=== PATIENT | female | born 1945 | race Caucasian/White ===

== ENCOUNTER 2017-12-13 11:01 | Inpatient (IN) | payer MEDICARE, OTHER ==
[~2017-12-13] VITALS: Ht 160 cm; Wt 97.3 kg
[~2017-12-13 11:01] MED LIST: ASPIRIN EC325 M1 PO; BENADRYL25 MG PO; ENALAPRIL MALEAT5 M1 PO; EPIPEN0.3 MG/0.3 IM; GLUCOPHAGE500 MG PO; LEVOTHYROXINE150 MCG PO; LIPITOR40 MG PO; LISINOPRIL2.5 MG PO; PERCOCET 5-3251 EACH PO; PLAVIX 75 MG TA75 MG PO; ULTRAM 50MG TAB50 MG PO
[2017-12-13 11:02] VITALS: BP 110/58
[2017-12-13 11:17] LABS: ABSOLUTE BASOPHILS 0.1 thou/uL (0.0-0.2); ABSOLUTE EOSINOPHILS 0.1 thou/uL (0.0-0.7); ABSOLUTE LYMPHOCYTES 1.8 thou/uL (0.8-5.3); ABSOLUTE MONOCYTES 0.7 thou/uL (0.0-1.2); ABSOLUTE NEUTROPHILS 7.8 thou/uL (1.6-8.1); BASOPHILS 0.7 %; HEMATOCRIT 38.8 % (37.0-47.0); HEMOGLOBIN 12.5 gm/dL (12.0-15.0); LYMPHOCYTES 16.8 %; MCH 26.2 pg (26.0-34.0); MCHC 32.3 g/dL (28.0-37.0); MCV 81.2 fL (80.0-100.0); MPV 8.2 fl. (7.2-11.1); NUCLEATED RBCS 0 /100WBC; PLATELET COUNT* 349 thou/uL (150-400); POLYS 74.5 %; RBC 4.78 mil/uL (4.20-5.00); WBC 10.5 thou/uL (4.0-11.0)
[2017-12-13 11:27] LABS: CALCIUM 9.2 mg/dL (8.5-10.1); CREATININE 0.8 mg/dL (0.6-1.3); POTASSIUM 3.8 mmol/L (3.5-5.1)
[2017-12-13 11:39] LABS: ALBUMIN 3.4 g/dL (3.4-5.0); MAGNESIUM 1.7 mg/dL (1.8-2.4); TOTAL BILIRUBIN 0.3 mg/dL (<0.1-1.0); TOTAL PROTEIN 7.4 g/dL (6.4-8.2); TROPONIN-I LEVEL 0.28 ng/mL (<0.06)
[2017-12-13 14:03] VITALS: BP 99/74
--- NOTE | 2017-12-13 14:20 | NUR ---
ADMIT FROM ER TO RM 212 REPORT GIVEN PATIENT TO VIA CART AND ASSISTED TO BED ORIENTED TO RM AND CALL LIGHT
[2017-12-13 14:25] VITALS: BP 89/67
[2017-12-13] MEDS ORDERED: ASPIR 8181 M1 PO (14:35)
[2017-12-13] MEDS ORDERED: VENTOLIN HFA 1818 GM INH (14:41)
[2017-12-13] MEDS ORDERED: ELIQUIS5 MG PO (14:42)
[2017-12-13] MEDS ORDERED: CARDURA4 MG PO (14:43)
[2017-12-13] MEDS ORDERED: COZAAR 50 MG TA50 M1 PO (14:45)
[2017-12-13] MEDS ORDERED: MOBIC7.5 MG PO (14:45)
[2017-12-13] MEDS ORDERED: HYDROCHLOROTHIA25 M1 PO (14:47)
[2017-12-13] MEDS ORDERED: HYDRALAZINE 10M10 MG PO (14:48)
[2017-12-13] MEDS ORDERED: SORINE 80 MG TA80 M1 PO (14:50)
[2017-12-13] MEDS ORDERED: CENTRUM SILVER1 EAC4 PO (15:00)
[2017-12-13] MEDS ORDERED: VITAMIN B-12500 MCG PO (15:04)
[2017-12-13] MEDS ORDERED: IRON325 PO (15:05)
[2017-12-13] MEDS ORDERED: VITAMIN D3400 UNIT PO (15:07)
--- NOTE | 2017-12-13 17:33 | EKG ---
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 : 1945 Requested By: Anton Motta Order Number: [id number] MD: Mo David Measurements Intervals [place] Rate: 66 P: 36 [place]: 184 QRS: 32 QRSD: 92 T: 85 QT: 433 QTc: 454 Interpretive Statements Sinus rhythm Abnormal R-wave progression, early transition Inferior infarct, old No previous ECG available for comparison Electronically Signed On 12-13-2017 17:33:38 CDT by Mo David [email or web address] <ELECTRONICALLY SIGNED> By: Mo David MD, [facility] 12/13/17 1733 1106 1106 Mo David MD, [facility] /EPI
[2017-12-13 19:30] VITALS: BP 115/60
[2017-12-14] VITALS (10 sets, daily range): BP systolic 91–127; BP diastolic 54–68
--- NOTE | 2017-12-14 03:56 | NUR ---
RECEIVED REPORT AND ASSUMED CARE AT 1900. VSS. CARDIAC MONITORING IN PLACE. PT DENIES ANY COMPLAINTS OF PAIN. PT UP WITH ASSIST TO BATHROOM, ON RA. ASSESSMENT COMPLETED CHARTED. DISCUSSED PLAN OF CARE WITH PT, VERBALIZED UNDERSTANDING. PT AWARE OF NO CAFFIENE AND NPO AFTER MIDNIGHT. PER PREVIOUS SHIFT NURSE MEDICAL RECORDS REQUESTED FROM [place] FOR CARDIOLOGY TO REVIEW IN THE MORNING TO DETERMINE POSSIBLE FURTHER TESTING. HOURLY ROUNDING COMPLETED. ALL NEEDS MET. PT UP TO BATHROOM DURING THE NIGHT, VERY DIZZY. ORTHOSTATIC BP OBTAINED. PT O2 SAT 88 WITH AMBULATING TO BATHROOM, 2L NC APPLIED TO PT. NURSING WILL CONTINUE TO MONITOR FOR REMAINDER OF THE SHIFT
[2017-12-14 04:54] LABS: ABSOLUTE BASOPHILS 0.1 thou/uL (0.0-0.2); ABSOLUTE EOSINOPHILS 0.1 thou/uL (0.0-0.7); ABSOLUTE MONOCYTES 0.7 thou/uL (0.0-1.2); ABSOLUTE NEUTROPHILS 5.6 thou/uL (1.6-8.1); BASOPHILS 0.6 %; EOSINOPHILS 1.4 %; HEMATOCRIT 36.3 % (37.0-47.0); HEMOGLOBIN 11.5 gm/dL (12.0-15.0); LYMPHOCYTES 23.7 %; MCH 25.8 pg (26.0-34.0); MCHC 31.8 g/dL (28.0-37.0); MCV 81.1 fL (80.0-100.0); MONOCYTES 8.1 %; NUCLEATED RBCS 0 /100WBC; PLATELET COUNT* 314 thou/uL (150-400); POLYS 66.2 %; RBC 4.47 mil/uL (4.20-5.00); RDW-CV 20.2 % (10.5-14.5); WBC 8.5 thou/uL (4.0-11.0)
[2017-12-14 05:13] LABS: CREATININE 0.6 mg/dL (0.6-1.3); POTASSIUM 4.2 mmol/L (3.5-5.1)
[2017-12-14 06:05] LABS: PLATELET ESTIMATE ADEQUATE
[2017-12-14 06:06] LABS: ANISOCYTOSIS 1+; OVALOCYTES 1+; POIKILOCYTOSIS 1+; POLYCHROMASIA Occasional
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
--- NOTE | 2017-12-14 11:00 | NUR ---
ASSUMED CARE OF PT AFTER REPORT AT 0730. PT ALERT AND ORIENTED X4. VSS. PHYSICAL ASSESSMENT COMPLETED AND CHARTED. PT ON RA.PT IV LINE PATENT AND INTACT. SR ON TELE.UP WITH 1 ASSIST. PT STILL COMPLAINED OF DIZZINESS. SEEN BY CARDIO. RESUMED CARB CONTROL DIET.DENIES ANY PAIN AT THIS TIME.CALL LIGHT WITHIN REACH. WILL CONTINUE TO MONITOR PT.
[2017-12-14] MEDS ORDERED: MOBIC7.5 MG PO (12:04)
[2017-12-14] MEDS ORDERED: LIPITOR 20 MG T20 M1 PO (12:06)
--- NOTE | 2017-12-14 14:10 | NUR ---
Therapy recommending HH, Pt will complete HH, then start cardiac rehab. Faxed orders to [facility] per Pt's request. Pt qualifies for a walker, therapy to dispense a [facility] walker. Order faxed to Eliana at [facility].
--- NOTE | 2017-12-14 17:38 | NUR ---
ORDERS RECIEVED FOR DISCHARGE. DISCONTINUED IV LINE AND MANAGER TRANSPORT. DISCHARGE EDUCATION AND TEACHING GIVEN.COMMUNICATES UNDERSTANDING. CARE NOTES, SCRIPTS AND APPOINTMENTS GIVEN. ALL QUESTIONS AND CONCERNS ADDRESSED. PT DISCHARGED WITH ALL BELONGINGS AND PAPERWORK VIA WHELLCHAIR WITH TECH TO SON OWN PERSONAL VEHICLE. NO PROBLEM TO NOTE AT TIME OF DISCHARGE.
[2018-02-20] MEDS ORDERED: RANEXA500 MG PO (15:50)
== END 2017-12-14 17:28 | disposition home health service (06) | DRG 281 ==
LOC: M.ERS 11:01 → M.TBA-ER 12:09 → M.2W 12:09
PROVIDERS: Emergency Medicine Emergency Medical Services; ADMIT Internal Medicine
DX: I21.4 Non-ST elevation (NSTEMI) myocardial infarction (principal); J98.11 Atelectasis; I25.10 Atherosclerotic heart disease of native coronary artery without angina pectoris; I10 Essential (primary) hypertension; J45.909 Unspecified asthma, uncomplicated; I95.9 Hypotension, unspecified; F43.9 Reaction to severe stress, unspecified; I48.91 Unspecified atrial fibrillation; G47.30 Sleep apnea, unspecified; E11.9 Type 2 diabetes mellitus without complications; F41.9 Anxiety disorder, unspecified; Z87.81 Personal history of (healed) traumatic fracture; Z95.5 Presence of coronary angioplasty implant and graft; Z90.49 Acquired absence of other specified parts of digestive tract; Z87.891 Personal history of nicotine dependence; Z90.710 Acquired absence of both cervix and uterus; Z79.82 Long term (current) use of aspirin; Z79.84 Long term (current) use of oral hypoglycemic drugs; Z79.899 Other long term (current) drug therapy

== ENCOUNTER → 2018-01-30 | Outpatient (CLI) | payer MEDICARE, OTHER ==
[~2018-01-30] MED LIST changes: +ASPIR 8181 M1 PO; +CARDURA4 MG PO; +CENTRUM SILVER1 EAC4 PO; +COZAAR 50 MG TA50 M1 PO; +ELIQUIS5 MG PO; +HYDRALAZINE 10M10 MG PO; +HYDROCHLOROTHIA25 M1 PO; +IMDUR 60 MG TAB60 M1 PO; +IRON325 PO; +LIPITOR 20 MG T20 M1 PO; +MOBIC7.5 MG PO; +NITROGLYCERIN0.4 MG SUBLING; +RANEXA500 MG PO; +SORINE 80 MG TA80 M1 PO; +TYLENOL EXTRA500 MG PO; +VENTOLIN HFA 1818 GM INH; +VITAMIN B-12500 MCG PO; +VITAMIN D3400 UNIT PO
[2018-01-30 14:31] LABS: ABSOLUTE BASOPHILS 0.1 thou/uL (0.0-0.2); ABSOLUTE EOSINOPHILS 0.2 thou/uL (0.0-0.7); ABSOLUTE LYMPHOCYTES 2.8 thou/uL (0.8-5.3); ABSOLUTE MONOCYTES 1.1 thou/uL (0.0-1.2); ABSOLUTE NEUTROPHILS 8.3 thou/uL (1.6-8.1); BASOPHILS 1.1 %; EOSINOPHILS 1.3 %; HEMATOCRIT 40.6 % (37.0-47.0); HEMOGLOBIN 13.1 gm/dL (12.0-15.0); LYMPHOCYTES 22.4 %; MCH 26.8 pg (26.0-34.0); MCHC 32.4 g/dL (28.0-37.0); MCV 82.8 fL (80.0-100.0); MPV 7.8 fl. (7.2-11.1); NUCLEATED RBCS 0 /100WBC; PLATELET COUNT* 427 thou/uL (150-400); POLYS 66.2 %; RBC 4.89 mil/uL (4.20-5.00); RDW-CV 15.7 % (10.5-14.5); WBC 12.6 thou/uL (4.0-11.0)
[2018-01-30 14:53] LABS: ALBUMIN 3.6 g/dL (3.4-5.0); CALCIUM 9.4 mg/dL (8.5-10.1); CREATININE 0.9 mg/dL (0.6-1.3); POTASSIUM 3.7 mmol/L (3.5-5.1); TOTAL BILIRUBIN 0.3 mg/dL (<0.1-1.0); TOTAL PROTEIN 8.1 g/dL (6.4-8.2); TROPONIN-I LEVEL 0.28 ng/mL (<0.06)
== END ==
LOC: M.LAB 14:12
PROVIDERS: Nurse Practitioner Family
DX: I10 Essential (primary) hypertension (principal); I25.10 Atherosclerotic heart disease of native coronary artery without angina pectoris; J45.909 Unspecified asthma, uncomplicated; E11.9 Type 2 diabetes mellitus without complications

== ENCOUNTER → 2018-02-01 | Outpatient (CLI) | payer MEDICARE, OTHER | LOC: M.ULTRA 10:56 | DX: M79.9 Soft tissue disorder, unspecified (principal); I10 Essential (primary) hypertension; I25.10 Atherosclerotic heart disease of native coronary artery without angina pectoris; J45.909 Unspecified asthma, uncomplicated ==

== ENCOUNTER → 2018-02-20 | Outpatient (CLI) | payer MEDICARE ==
[~2018-02-20] VITALS: Ht 160 cm; Wt 104.3 kg
[2018-02-20 12:44] LABS: HEMATOCRIT 37.5 % (37.0-47.0); HEMOGLOBIN 12.2 gm/dL (12.0-15.0); MCH 26.7 pg (26.0-34.0); MCHC 32.4 g/dL (28.0-37.0); MCV 82.5 fL (80.0-100.0); MPV 7.9 fl. (7.2-11.1); RBC 4.55 mil/uL (4.20-5.00); RDW-CV 15.2 % (10.5-14.5); WBC 12.1 thou/uL (4.0-11.0)
[2018-02-20 12:53] LABS: APTT 29.5 Seconds (25.0-31.3); PROTIME 10.3 Seconds (9.20-11.50)
[2018-02-20 12:58] LABS: ANION GAP 6 mmol/L (7-16); BUN 15 mg/dL (7-18); CALCIUM 8.5 mg/dL (8.5-10.1); CHLORIDE 99 mmol/L (98-107); CO2 31 mmol/L (21-32); CREATININE 0.7 mg/dL (0.6-1.3); GLUCOSE 101 mg/dL (70-99); POTASSIUM 3.5 mmol/L (3.5-5.1); SODIUM 136 mmol/L (136-145)
[2018-02-20 13:05] LABS: ALBUMIN 3.3 g/dL (3.4-5.0); ALKALINE PHOSPHATASE 88 U/L (46-116); CHOLESTEROL 121 mg/dL (<200); HDL CHOLESTEROL 54 mg/dL (>40); LDL CHOLESTEROL 49 mg/dL (<100); SGOT 17 U/L (15-37); SGPT 17 U/L (30-65); TC:HDL 2.2 Ratio (Not establshd); TOTAL BILIRUBIN 0.5 mg/dL (<0.1-1.0); TOTAL PROTEIN 7.3 g/dL (6.4-8.2); TRIGLYCERIDE 93 mg/dL (<150); VLDL 19 mg/dL (<40)
[2018-02-20 13:06] LABS: SERUM ASSESSMENT Clear
[2018-02-20 13:12] VITALS: BP 129/72
[2018-02-20 14:00] VITALS: BP 98/55
[2018-02-20 14:15] VITALS: BP 94/46
[2018-02-20 14:30] VITALS: BP 94/55
[2018-02-20 14:46] VITALS: BP 94/55
[2018-02-20 14:54] VITALS: BP 104/60
--- NOTE | 2018-02-20 15:09 | CARD ---
[address] [address] CARDIAC CATH REPORT Name: MENA DELAROSA [id number] Admission: 02/20/18 Attend Phys: Vadim Finley MD Discharge: Date of : 49 Report #: [id number] THIS REPORT FOR: //name// APPROVED REPORT Study performed: 02/20/2018 12:36:28 Patient Details Patient Status: Out-Patient Room #: The patient is a 73 year-old female Event Personnel Vadim Finley Radar Technician, Elsi Odom RTR Scrub, Dana Kong RN Insurance Marketing Specialist, Neda Rosario RTR Scrub Procedures Performed Art Access - R femoral artery* Left Heart Cath w/or w/o Coronaries [facility] Hemostasis w/ Mynx Procedure Narrative The patient was brought electively to the Cardiac Catheterization Laboratory and was prepped and draped in a sterile manner. The right femoral was infiltrated with 2% Lidocaine subcutaneous anesthesia. A 6fr Ultimum Sheath sheath was inserted into the right femoral artery. Coronary angiography was performed using coronary diagnostic catheters. The right coronary system was accessed and visualized with a Diagnostic 6Fr JR4 catheter. The left coronary system was accessed and visualized with a Diagnostic 6Fr JL4 catheter. Left ventricular/Aortic Valve gradient assessed . Closure device was deployed with a Fr MynxGrip 6/7F. Hemostasis was obtained with manual pressure following sheath removal without any complications. The patient tolerated the procedure well and there were no complications associated with the procedure. There was no hematoma. Intraoperative Conscious Sedation Sedation start time: 1:43 Case end Time: 1:55 Fentanyl 25 mcg Versed 1 mg Fluoro Time: 2.0 minutes Dose: DAP 33458 cGycm2 856 mGy Contrast Type and Amount: Omnipaque 75 ml Coronary Angiography The patient's coronary [place] [address] CARDIAC CATH REPORT Name: MENA DELAROSA Room: [facility]#: [id number] Admission: 02/20/18 Attend Phys: Vadim Finley MD Discharge: Date of : 49 Report #: [id number] Diagnostic Cath Left Main Normal LAD Widely patent stent in the mid LAD. The vessel is otherwise normal Diagonal 1 Normal Diagonal 2 Jailed by stent with 90% ostial stenosis Circumflex Normal OM1 Normal OM2 Normal Right Coronary 10% narrowing proximally R PDA Normal RPLV Normal Left Ventriculography Left Ventriculography was not performed. Ejection Fraction was within normal limits based off patient's Nuclear Cardiac Stress Test. Hemodynamics The aortic pressure is 115/51 mmHg with a mean of 76 mmHg. The left ventricular pressure is 102/-3 mmHg with a mean of mmHg. The left ventricular end diastolic pressure is 9 mmHg. Pullback from the left ventricle to the aorta revealed no gradient across the aortic valve. Conclusion 1. Widely patent stent in the mid LAD with a jailed diagonal branch. 2. 90% ostial stenosis of the second diagonal branch. 3. Normal left ventricular end-diastolic pressure. Recommendations 1. Continue medical management and aggressive risk factor modification. <ELECTRONICALLY SIGNED> By: Vadim Finley MD, [facility] 02/20/18 1508 1508 1508[facility] hospitalcynthia Finley MD, FACC /INF
--- NOTE | 2018-02-20 15:34 | EKG ---
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1945 Requested By: Vadim Finley Order Number: [id number] Reading MD: Vadim Finley Measurements Intervals [place] Rate: 64 P: 40 [place]: 187 QRS: 43 QRSD: 87 T: 83 QT: 436 QTc: 450 Interpretive Statements Sinus rhythm Abnormal R-wave progression, early transition Compared to ECG 12/13/2017 11:06:05 Myocardial infarct finding no longer present Electronically Signed On 02-20-2018 15:34:07 CDT by Vadim Finley [email or web address] <ELECTRONICALLY SIGNED> By: Vadim Finley MD, [facility] 02/20/18 1534 1230 1230 Vadim Finley MD, FAC /EPI
== END | disposition home or self-care (01) ==
LOC: M.CL 11:45
PROVIDERS: Internal Medicine Cardiovascular Disease
DX: I25.10 Atherosclerotic heart disease of native coronary artery without angina pectoris (principal); I21.4 Non-ST elevation (NSTEMI) myocardial infarction; E11.9 Type 2 diabetes mellitus without complications; I10 Essential (primary) hypertension; J45.909 Unspecified asthma, uncomplicated; F41.9 Anxiety disorder, unspecified; Z88.8 Allergy status to other drugs, medicaments and biological substances; Z79.899 Other long term (current) drug therapy; Z79.82 Long term (current) use of aspirin; Z79.84 Long term (current) use of oral hypoglycemic drugs; Z95.5 Presence of coronary angioplasty implant and graft; Z98.890 Other specified postprocedural states; Z90.49 Acquired absence of other specified parts of digestive tract; Z90.710 Acquired absence of both cervix and uterus

== ENCOUNTER 2018-03-03 18:47 | Inpatient (IN) | payer MEDICARE ==
[~2018-03-03] VITALS: Ht 160 cm; Wt 100.5 kg
[~2018-03-03 18:47] MED LIST changes: -IMDUR 60 MG TAB60 M1 PO; -NITROGLYCERIN0.4 MG SUBLING; -TYLENOL EXTRA500 MG PO
[2018-03-03 18:52] VITALS: BP 146/80
[2018-03-03] MEDS ORDERED: VENTOLIN HFA 1818 GM INH (19:00)
[2018-03-03] MEDS ORDERED: TYLENOL EXTRA500 MG PO (19:03)
[2018-03-03] MEDS ORDERED: NITROGLYCERIN0.4 MG SUBLING (19:04)
[2018-03-03 19:34] LABS: ABSOLUTE EOSINOPHILS 0.2 thou/uL (0.0-0.7); ABSOLUTE LYMPHOCYTES 2.9 thou/uL (0.8-5.3); ABSOLUTE MONOCYTES 0.8 thou/uL (0.0-1.2); ABSOLUTE NEUTROPHILS 8.8 thou/uL (1.6-8.1); BASOPHILS 0.1 %; EOSINOPHILS 1.6 %; HEMATOCRIT 38.5 % (37.0-47.0); HEMOGLOBIN 12.3 gm/dL (12.0-15.0); LYMPHOCYTES 22.4 %; MCH 26.6 pg (26.0-34.0); MCHC 31.9 g/dL (28.0-37.0); MCV 83.3 fL (80.0-100.0); MONOCYTES 6.7 %; MPV 8.5 fl. (7.2-11.1); NUCLEATED RBCS 0 /100WBC; PLATELET COUNT* 411 thou/uL (150-400); POLYS 69.2 %; RBC 4.63 mil/uL (4.20-5.00); RDW-CV 15.5 % (10.5-14.5); WBC 12.7 thou/uL (4.0-11.0)
[2018-03-03 19:38] LABS: POTASSIUM 3.5 mmol/L (3.5-5.1)
[2018-03-03 19:48] LABS: ALBUMIN 3.4 g/dL (3.4-5.0); MAGNESIUM 1.7 mg/dL (1.8-2.4); TOTAL BILIRUBIN 0.3 mg/dL (<0.1-1.0); TOTAL PROTEIN 7.6 g/dL (6.4-8.2); TROPONIN-I LEVEL 0.18 ng/mL (<0.06)
[2018-03-03 21:04] VITALS: BP 105/50
[2018-03-04] VITALS: BP 114/81
[2018-03-04 04:00] VITALS: BP 108/45
[2018-03-04 05:14] LABS: HEMOGLOBIN 11.6 gm/dL (12.0-15.0); MCH 26.9 pg (26.0-34.0); MCHC 32.2 g/dL (28.0-37.0); MCV 83.5 fL (80.0-100.0); MPV 8.1 fl. (7.2-11.1); RBC 4.31 mil/uL (4.20-5.00); RDW-CV 15.1 % (10.5-14.5)
[2018-03-04 06:04] LABS: ALBUMIN 3.2 g/dL (3.4-5.0); CALCIUM 8.9 mg/dL (8.5-10.1); CREATININE 0.9 mg/dL (0.6-1.3); MAGNESIUM 1.9 mg/dL (1.8-2.4); POTASSIUM 3.9 mmol/L (3.5-5.1); TOTAL BILIRUBIN 0.3 mg/dL (<0.1-1.0); TOTAL PROTEIN 6.6 g/dL (6.4-8.2)
[2018-03-04 08:00] VITALS: BP 111/57
[2018-03-04 12:13] VITALS: BP 105/49
[2018-03-04 16:00] VITALS: BP 118/67
--- NOTE | 2018-03-04 17:03 | EKG ---
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 KITCHEN : 1945 Requested By: Anton Motta Order Number: [id number] MD: Vadim Finley Measurements Intervals [place] Rate: 66 P: 33 [place]: 181 QRS: 26 QRSD: 91 T: 83 QT: 425 QTc: 446 Interpretive Statements Sinus rhythm Abnormal R-wave progression, early transition Baseline wander in lead(s) II,III,aVR,aVL,aVF,V4,V5 Compared to ECG 02/20/2018 12:30:22 No significant changes Electronically Signed On 03-04-2018 17:03:19 CDT by Vadim Finley [email or web address] <ELECTRONICALLY SIGNED> By: Vadim Finlye MD, FACC 03/04/18 1703 1854 1854 Vadim Finley MD, FACC /EPI
[2018-03-04 20:03] VITALS: BP 130/76
[2018-03-05] VITALS (7 sets, daily range): BP systolic 99–115; BP diastolic 53–68
[2018-03-05 05:02] LABS: HEMATOCRIT 37.1 % (37.0-47.0); HEMOGLOBIN 12.1 gm/dL (12.0-15.0); MCH 27.2 pg (26.0-34.0); MCHC 32.5 g/dL (28.0-37.0); MCV 83.6 fL (80.0-100.0); RBC 4.44 mil/uL (4.20-5.00); RDW-CV 15.4 % (10.5-14.5); WBC 9.1 thou/uL (4.0-11.0)
[2018-03-05 05:48] LABS: ALBUMIN 3.3 g/dL (3.4-5.0); CALCIUM 9.4 mg/dL (8.5-10.1); CREATININE 0.8 mg/dL (0.6-1.3); TOTAL BILIRUBIN 0.2 mg/dL (<0.1-1.0); TOTAL PROTEIN 6.9 g/dL (6.4-8.2); TROPONIN-I LEVEL 0.17 ng/mL (<0.06)
--- NOTE | 2018-03-05 13:24 | 2DMMODE ---
[place] [address] 2 D/M-MODE ECHOCARDIOGRAM Name: MENA DELAROSA Room: [address] IN [facility]#: [id number] Admission: 03/03/18 Attend Phys: Isacc Joyce Discharge: Date of : 49 Date of Service: 03/05/18 1324 Report #: [id number] THIS REPORT FOR: //name// APPROVED REPORT Study performed: 03/05/2018 09:42:02 EXAM: Comprehensive 2D, Doppler, and color-flow Echocardiogram Patient Location: In-Patient Room #: [facility] Status: routine BSA: 2.02 HR: 74 bpm BP: 111/57 mmHg Other Information Study Quality: Fair Indications CAD Chest Pain 2D Dimensions IVSd: 15.48 (7-11mm) LVOT Diam: 20.61 (18-24mm) LVDd: 41.26 mm PWd: 11.68 (7-11mm) Ascending Ao: 35.87 (22-36mm) LVDs: 29.28 (25-40mm) Aortic Root: 31.95 mm Volumes Left Atrial Volume (Systole) LA ESV Index: 15.90 mL/m2 Aortic Valve AoV Peak Zay.: 1.25 m/s AO Peak Gr.: 6.22 mmHg LVOT Max P.66 mmHg AO Mean Gr.: 3.57 mmHg LVOT Mean P.96 mmHg LVOT Max V: 0.96 m/s AO V2 VTI: 24.50 cm LVOT Mean V: 0.65 m/s FANI (VTI): 2.85 cm2 LVOT V1 VTI: 20.93 cm Mitral Valve E/A Ratio: 0.60 MV Decel. Time: 275.57 ms MV E Max Zay.: 0.36 m/[place] [address] 2 D/M-MODE ECHOCARDIOGRAM Name: MENA DELAROSA Room: [address] IN .R.#: [id number] Admission: 03/03/18 Attend Phys: Isacc Joyce Discharge: Date of : 49 Date of Service: 03/05/18 1324 Report #: [id number] MV PHT: 79.91 ms MVA (PHT): 2.75 cm2 TDI E/Lateral E': 7.20 E/Medial E': 4.50 Medial E' Zay.: 0.08 m/s Lateral E' Zay.: 0.05 m/s Pulmonary Valve PV Peak Zay.: 0.85 m/s PV Peak Gr.: 2.87 mmHg Tricuspid Valve RAP Estimate: 5.00 mmHg TR Peak Gr.: 31.52 mmHg RVSP: 36.52 mmHg PA Pressure: 36.52 mmHg Left Ventricle The left ventricle is normal size. There is normal LV segmental wall motion. Mild concentric left ventricular hypertrophy. Left ventricular systolic function is normal. The left ventricular ejection fraction is within the normal range. LVEF is 55-60%. Grade I - abnormal relaxation pattern. Right Ventricle The right ventricle is normal size. The right ventricular systolic function is normal. Atria The left atrium size is normal. The right atrium size is normal. Aortic Valve The aortic valve is normal in structure. No aortic regurgitation is present. There is no aortic valvular stenosis. Mitral Valve The mitral valve is normal in structure. There is no mitral valve regurgitation noted. No evidence of mitral valve stenosis. Tricuspid Valve The tricuspid valve is normal in structure. Mild tricuspid regurgitation. estimated pa pressure 40 mm Hg Pulmonic Valve Pulmonic valve is not well visualized.. There is no pulmonic valvular [place] [address] 2 D/M-MODE ECHOCARDIOGRAM Name: MENA ALVAREZ Nuvia Room: [address] IN [facility].#: [id number] Admission: 03/03/18 Attend Phys: Isacc Joyce Discharge: Date of : 49 Date of Service: 03/05/18 1324 Report #: [id number] Great Vessels The aortic root is normal in size. IVC is normal in size and collapses with >50% inspiration Pericardium There is no pericardial effusion. <Conclusion> Mild concentric left ventricular hypertrophy. LVEF is 55-60%. <ELECTRONICALLY SIGNED> By: Mo David MD, FACC 03/05/18 1324 1324 1324 Mo David MD, FACC /INF
[2018-03-05] MEDS ORDERED: RANEXA500 MG PO (16:40)
[2018-03-05] MEDS ORDERED: IMDUR 60 MG TAB60 M1 PO (16:40)
--- NOTE | 2018-03-12 12:28 | CON ---
[address] [address] CONSULTATION Name: MENA DELAROSA Room: [address] IN M.R.#: [id number] Admission: 03/03/18 Attend Phys: Isacc Gage, Discharge: 03/05/18 Date of : 49 Report #: [id number] THIS REPORT FOR: //name// CC: Vadim Gage INDICATION: Non-ST elevation myocardial infarction. HISTORY OF PRESENT ILLNESS: The patient is a very pleasant 73-year-old white female who is well known to myself. She has coronary artery disease with remote stenting to the mid LAD. In that process, she has a fairly sizable second diagonal branch that is jailed. She was evaluated with left heart catheterization recently and this showed no other hemodynamically significant coronary occlusions. She continues to have intermittent angina and occasional elevations in her troponins, presumably secondary to the jailed diagonal branch which is not amenable to intervention. She has paroxysmal atrial fibrillation. She is maintaining sinus rhythm on sotalol 80 mg twice daily. She is chronically anticoagulated and having no bleeding problems. Cardiac risk factors include hypertension and type 2 diabetes mellitus. She presumably has hyperlipidemia. She reports having an episode of midsternal chest pressure and tightness, relieved with 5 aspirin and 2 sublingual nitroglycerin yesterday. She was admitted to the hospital for further evaluation. EKG shows sinus rhythm with some subtle nonspecific ST segment depression. At the time of my interview, she is without complaint. ALLERGIES: ENALAPRIL AND LISINOPRIL. CURRENT MEDICATIONS: Tylenol p.r.n., Nitrostat p.r.n., levothyroxine 150 mcg daily, aspirin 81 mg daily, tramadol 50 mg q. 6 hours p.r.n., albuterol inhaler 2 puffs q. 4 hours p.r.n., losartan 50 mg b.i.d., hydrochlorothiazide 25 mg daily, sotalol 80 mg twice daily, multivitamin 1 tablet daily, vitamin B12 500 mcg 3 tablets daily, iron sulfate 325 mg daily, vitamin D3 400 units daily, Lipitor 20 mg at bedtime, metformin 500 mg b.i.d., Eliquis 5 mg b.i.d. FAMILY HISTORY: Positive for heart disease. SOCIAL HISTORY: The patient quit smoking remotely. She does not drink alcohol. REVIEW OF SYSTEMS: GENERAL: She denies convulsions, seizures or focal paralysis. In general, [place] [address] CONSULTATION Name: MENA DELAROSA Room: [address]#: [id number] Admission: 03/03/18 Attend Phys: Isacc Gage, Discharge: 03/05/18 Date of : 49 Report #: [id number] there is no unexplained weight loss or fever. RESPIRATORY: She has a cough that is nonproductive. CARDIAC: She has dyspnea on exertion, but no orthopnea or paroxysmal nocturnal dyspnea. She reports chest pain as outlined above. ENDOCRINE: She has hypothyroidism. She has type 2 diabetes. GASTROINTESTINAL: She denies vomiting, hematemesis, melena or hematochezia. GENITOURINARY: No dysuria or hematuria. HEMATOLOGIC AND LYMPHATIC: No history of anemia, bleeding disorder, cancer or blood clots. ALLERGY AND IMMUNOLOGIC: She has medical allergies outlined above. PSYCHIATRIC: Mild anxiety, no depression. MUSCULOSKELETAL: She has some arthritis, but no connective tissue disease. SKIN: No recent rashes, hives or chronic skin conditions. EYES: She wears glasses. She has no acute loss in vision. EARS, NOSE, MOUTH, AND THROAT: She denies epistaxis or dentures. PHYSICAL EXAMINATION: VITAL SIGNS: Stable. Blood pressure 105/49, pulse 64 and regular. GENERAL: This is a pleasant lady in no distress. Mood and affect appropriate. HEENT: Extraocular muscles intact. Mucous membranes are moist. NECK: Shows no jugular venous distention. There are no carotid bruits. CHEST: Reveals clear lung head. I do not appreciate wheezes or rales. CARDIAC: Reveals regular rhythm without gallop or murmur. ABDOMEN: Reveals normal bowel sounds. The abdomen is soft, nontender. EXTREMITIES: Shows no edema. Peripheral pulses palpable. SKIN: Warm and dry. LABORATORY DATA: A 12-lead EKG shows sinus rhythm with nonspecific ST-segment depression. Labs are reviewed. Troponins are 0.18, 0.15 and 0.18 sequentially. She has chronically elevated troponins. NT-proBNP is 263. Chest x-ray shows no acute pulmonary infiltrate. IMPRESSION AND RECOMMENDATIONS: 1. Non-ST elevation myocardial infarction due to partially occluded second diagonal branch that is not amenable to intervention. The patient will continue to have angina symptoms. Would recommend continued medical management. I am starting isosorbide and continuing Ranexa 500 mg twice daily. Continue additional cardiac medicines as outlined above. 2. Coronary artery disease. The patient has chronically elevated troponins due to partially occluded second diagonal branch that is not amenable to intervention. I have adjusted her antianginal regimen. 3. Diabetes per primary physician. 4. Hyperlipidemia. Continue atorvastatin at current dose. [address] [place] [address] CONSULTATION Name: MENA DELAROSA Room: [address]#: [id number] Admission: 03/03/18 Attend Phys: Isacc Gage, Discharge: 03/05/18 Date of : 49 Report #: [id number] 5. Paroxysmal atrial fibrillation, maintaining sinus rhythm on sotalol. Continue chronic anticoagulation. <ELECTRONICALLY SIGNED> By: Vadim Finley MD, FACC 03/12/18 1228 1331 Ray Finley MD, FACC /nt
== END 2018-03-05 18:20 | disposition home or self-care (01) | DRG 281 ==
LOC: M.ERS 18:47 → M.TBA-ER 20:19 → M.2W 20:19
PROVIDERS: Emergency Medicine Emergency Medical Services; ADMIT Family Medicine
DX: I21.4 Non-ST elevation (NSTEMI) myocardial infarction (principal); D68.69 Other thrombophilia; R65.10 Systemic inflammatory response syndrome (SIRS) of non-infectious origin without acute organ dysfunction; E66.01 Morbid (severe) obesity due to excess calories; I48.0 Paroxysmal atrial fibrillation; I25.10 Atherosclerotic heart disease of native coronary artery without angina pectoris; I10 Essential (primary) hypertension; J45.909 Unspecified asthma, uncomplicated; E11.9 Type 2 diabetes mellitus without complications; F41.9 Anxiety disorder, unspecified; Z60.2 Problems related to living alone; E78.5 Hyperlipidemia, unspecified; G47.33 Obstructive sleep apnea (adult) (pediatric); Z79.82 Long term (current) use of aspirin; Z68.39 Body mass index [BMI] 39.0-39.9, adult; Z95.5 Presence of coronary angioplasty implant and graft; Z90.49 Acquired absence of other specified parts of digestive tract; Z90.710 Acquired absence of both cervix and uterus; Z88.8 Allergy status to other drugs, medicaments and biological substances; Z87.891 Personal history of nicotine dependence; Z82.49 Family history of ischemic heart disease and other diseases of the circulatory system; Z79.899 Other long term (current) drug therapy; Z79.01 Long term (current) use of anticoagulants

== ENCOUNTER → 2018-08-17 | Outpatient (CLI) | payer MEDICARE ==
[~2018-08-17] MED LIST changes: +IMDUR 60 MG TAB60 M1 PO; +NITROGLYCERIN0.4 MG SUBLING; +TYLENOL EXTRA500 MG PO
[2018-08-17 10:55] LABS: ABSOLUTE LYMPHOCYTES 1.4 thou/uL (0.8-5.3); ABSOLUTE MONOCYTES 0.6 thou/uL (0.0-1.2); ABSOLUTE NEUTROPHILS 8.6 thou/uL (1.6-8.1); BASOPHILS 0.3 %; EOSINOPHILS 0.4 %; HEMATOCRIT 37.9 % (37.0-47.0); HEMOGLOBIN 12.3 gm/dL (12.0-15.0); LYMPHOCYTES 13.3 %; MCH 27.2 pg (26.0-34.0); MCHC 32.4 g/dL (28.0-37.0); MCV 84.1 fL (80.0-100.0); MONOCYTES 5.5 %; MPV 7.7 fl. (7.2-11.1); NUCLEATED RBCS 0 /100WBC; PLATELET COUNT* 413 thou/uL (150-400); POLYS 80.5 %; RBC 4.51 mil/uL (4.20-5.00); RDW-CV 16.8 % (10.5-14.5); WBC 10.7 thou/uL (4.0-11.0)
[2018-08-17 11:12] LABS: ALBUMIN 3.4 g/dL (3.4-5.0); CALCIUM 9.5 mg/dL (8.5-10.1); CREATININE 0.9 mg/dL (0.6-1.3); POTASSIUM 4.2 mmol/L (3.5-5.1); TOTAL BILIRUBIN 0.5 mg/dL (<0.1-1.0); TOTAL PROTEIN 7.5 g/dL (6.4-8.2)
== END ==
LOC: M.LAB 10:09
PROVIDERS: Physician Assistant
DX: R11.2 Nausea with vomiting, unspecified (principal)

== ENCOUNTER → 2018-08-20 | Outpatient (CLI) | payer MEDICARE | LOC: M.RAD 09:23 | DX: R11.2 Nausea with vomiting, unspecified (principal) ==

== ENCOUNTER → 2018-08-21 | Outpatient (CLI) | payer MEDICARE | LOC: M.NUC 08-17 09:26 | DX: K31.84 Gastroparesis (principal); R11.2 Nausea with vomiting, unspecified; E11.9 Type 2 diabetes mellitus without complications; Z79.84 Long term (current) use of oral hypoglycemic drugs ==

== ENCOUNTER → 2018-09-28 | Day surgery (SDC) | payer MEDICARE ==
[~2018-09-28] MED LIST changes: +CARAFATE 1 GM TA1 G1 PO; +COZAAR100 MG PO; +PROTONIX40 M1 PO
--- NOTE | ~2018-09-28 | PROC ---
[address] [address] PROCEDURE REPORT Name: MENA DELAROSA Room: [facility]..#: [id number] Admission: 09/28/18 Attend Phys: Elvia Ho MD Discharge: Date of : 49 Report #: [id number] THIS REPORT FOR: //name// For GI report, please see the Provation report in Perceptive 7 content. By: 0653Medical Records Staff ANDREA /GLENNA
[2018-09-28 09:56] LABS: HEMOGLOBIN 12.9 gm/dL (12.0-15.0); MCH 27.8 pg (26.0-34.0); MCV 84.2 fL (80.0-100.0); MPV 8.1 fl. (7.2-11.1); RBC 4.64 mil/uL (4.20-5.00); RDW-CV 17.7 % (10.5-14.5)
[2018-09-28 10:00] LABS: CALCIUM 9.3 mg/dL (8.5-10.1); CREATININE 0.8 mg/dL (0.6-1.3); POTASSIUM 3.9 mmol/L (3.5-5.1)
--- NOTE | 2018-09-28 12:22 | EKG ---
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1945 Requested By: Elvia Ho Order Number: [id number] Reading MD: Avila Taylor Measurements Intervals [place] Rate: 57 P: 41 [place]: 178 QRS: 19 QRSD: 85 T: 74 QT: 466 QTc: 454 Interpretive Statements Sinus rhythm Abnormal R-wave progression, early transition Abnormal inferior Q waves, consider prior infarct Compared to ECG 03/03/2018 18:54:49 Inferior Q waves now present Electronically Signed On 09-28-2018 12:22:18 CDT by Avila Taylor [email or web address] <ELECTRONICALLY SIGNED> By: Avila Taylor MD, [facility] 09/28/18 1222 0934 0934 Avila Taylor MD, [facility] /EPI
--- NOTE | 2018-10-02 12:05 | PATH ---
[address] [address] PATHOLOGY RPT PROCEDURE Name: MENA ALVAREZN [id number] Admission: 09/28/18 Date of : 49 Discharge: Report #: [id number] Path Case #: [id number] [facility] Accession Number: [id number] . 01 Material submitted: . PART A: stomach - ANTRAL ULCER PART B: esophagus - DISTAL ESOPHAGUS RULE OUT BARRETTS. Modifiers: distal . 01 Clinical history: . Dyspepsia, dysphagia, GERD, gastric polyp . 02 Diagnosis: A. Antral ulcer: - Moderate chronic and mild active antral gastritis typical of reactive gastropathy (chemical gastritis), with prominent intestinal metaplasia, negative for Helicobacter pylori organisms, granulomas and dysplasia. . B. 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 (KATIE/db; 10/01/2018) LBQ/10/01/2018 . 02 Comment: Special stain on A: H. pylori immuno . 02 Electronically signed: . Ike Feng MD, Pathologist NPI- [id number] . 01 Gross description: . A. Received in formalin labeled "Mena Yousif, antral ulcer," are 2 segments of lin soft tissue measuring 1.1 x 0.3 x 0.2 cm in aggregate dimensions and ranging from 0.5 to 0.6 cm in maximum dimension. The specimen is submitted entirely in cassette A1. . B. Received in formalin labeled "Mena Yousif, distal esophagus, rule out Zheng's," are 2 segments of lin soft tissue measuring 0.6 x 0.3 x 0.2 cm in aggregate dimensions and ranging from 0.2 to 0.4 cm in maximum dimension. The specimen is submitted entirely in cassette B1. (TSD; 09/28/2018) TOB/TOB . 02 Pathologist provided ICD-10: K29.50, K22.70 . 02 [place] [address] PATHOLOGY RPT PROCEDURE Name: MENA YOUSIF Room: [facility]#: [id number] Admission: 09/28/18 Date of : 49 Discharge: Report #: [id number] Path Case #: [id number] [facility] [id number], [id number], [id number] Specimen Comment: A courtesy copy of this report has been sent to Specimen Comment: [phone], . Specimen Comment: Report sent to / DR IBANEZ Performed at: [address], [place], [place] [address] MD Jose Martin Tracey MD Phone: [phone] Performed at: 02 [facility] [address], [place], [place] [address] MD Ike Feng MD Phone: [phone]
== END | disposition home or self-care (01) ==
LOC: M.SUR 09:09
PROVIDERS: Internal Medicine Gastroenterology
DX: K29.50 Unspecified chronic gastritis without bleeding (principal); K22.70 Barrett's esophagus without dysplasia; K25.9 Gastric ulcer, unspecified as acute or chronic, without hemorrhage or perforation; K22.8 Other specified diseases of esophagus; K44.9 Diaphragmatic hernia without obstruction or gangrene; I11.0 Hypertensive heart disease with heart failure; I50.9 Heart failure, unspecified; E11.9 Type 2 diabetes mellitus without complications; I25.10 Atherosclerotic heart disease of native coronary artery without angina pectoris; I25.2 Old myocardial infarction; M06.9 Rheumatoid arthritis, unspecified; J44.9 Chronic obstructive pulmonary disease, unspecified; G47.33 Obstructive sleep apnea (adult) (pediatric); G62.9 Polyneuropathy, unspecified; E66.09 Other obesity due to excess calories; Z86.73 Personal history of transient ischemic attack (TIA), and cerebral infarction without residual deficits; Z79.01 Long term (current) use of anticoagulants; Z88.8 Allergy status to other drugs, medicaments and biological substances; Z90.49 Acquired absence of other specified parts of digestive tract; Z90.710 Acquired absence of both cervix and uterus; Z79.899 Other long term (current) drug therapy; Z98.890 Other specified postprocedural states

== ENCOUNTER → 2018-11-01 | Outpatient (CLI) | payer MEDICARE | LOC: M.RAD 13:15 | DX: Z12.31 Encounter for screening mammogram for malignant neoplasm of breast (principal); M19.011 Primary osteoarthritis, right shoulder ==

== ENCOUNTER 2019-03-24 00:21 | Inpatient (IN) | payer MEDICARE ==
[~2019-03-24] VITALS: Ht 160 cm; Wt 98.4 kg
[2019-03-24] VITALS (8 sets, daily range): BP systolic 88–137; BP diastolic 44–97
[2019-03-24 00:59] LABS: ABSOLUTE BASOPHILS 0.1 thou/uL (0.0-0.2); ABSOLUTE EOSINOPHILS 0.2 thou/uL (0.0-0.7); ABSOLUTE LYMPHOCYTES 2.7 thou/uL (0.8-5.3); ABSOLUTE MONOCYTES 1.2 thou/uL (0.0-1.2); ABSOLUTE NEUTROPHILS 8.9 thou/uL (1.6-8.1); BASOPHILS 0.6 %; EOSINOPHILS 1.3 %; HEMATOCRIT 37.3 % (37.0-47.0); HEMOGLOBIN 12.2 gm/dL (12.0-15.0); LYMPHOCYTES 20.6 %; MCH 27.8 pg (26.0-34.0); MCHC 32.8 g/dL (28.0-37.0); MCV 84.8 fL (80.0-100.0); MONOCYTES 9.1 %; MPV 7.8 fl. (7.2-11.1); NUCLEATED RBCS 0 /100WBC; PLATELET COUNT* 338 thou/uL (150-400); POLYS 68.4 %; RDW-CV 15.1 % (10.5-14.5)
[2019-03-24 01:14] LABS: CALCIUM 9.2 mg/dL (8.5-10.1); CREATININE 1.1 mg/dL (0.6-1.3)
[2019-03-24 01:28] LABS: ALBUMIN 3.2 g/dL (3.4-5.0); MAGNESIUM 1.5 mg/dL (1.8-2.4); TOTAL BILIRUBIN 0.2 mg/dL (<0.1-1.0); TOTAL PROTEIN 6.8 g/dL (6.4-8.2); TROPONIN-I LEVEL 0.23 ng/mL (<0.06)
[2019-03-24 01:33] LABS: APTT 30.2 Seconds (25.0-31.3); PROTIME 10.7 Seconds (9.20-11.50)
--- NOTE | 2019-03-24 06:03 | NUR ---
RECEIVED PT FROM ER PER CART AT APPROX 0200. PT IS AWAKE AND ORIENTED X4. VSS ON 2L OF O2/NC. PATTERN CLERK PLACED-TRACING SR. ADMISSION ASSESSMENTS DONE AND CHARTED. PT DENIES CHEST PAIN/TIGHTNESS THIS SHIFT. ELECTROLYTE REPLACEMENT (K,MG) IN PROGRESS. BED LOCKED AND IN LOWEST POSITION. PT IS ADVISED ON THE USE OF CALL LIGHT AND ON THE ROOM SET UP. PT IS ABLE TO SLEEP MOST OF THE NIGHT. HIGH FALL PRECAUTIONS IN PLACE. CALL LIGHT WITHIN REACH. HOURLY ROUNDING DONE FOR PT SAFETY.
[2019-03-24 09:19] LABS: CHOLESTEROL 102 mg/dL (<200); HDL CHOLESTEROL 45 mg/dL (>40); LDL CHOLESTEROL 41 mg/dL (<100); TC:HDL 2.3 Ratio (Not establshd); TRIGLYCERIDE 83 mg/dL (<150); VLDL 17 mg/dL (<40)
[2019-03-24 09:20] LABS: SERUM ASSESSMENT Clear
--- NOTE | 2019-03-24 12:24 | NUR ---
ASSUMED PT CARE AT 0800, AOX4, UP SBA O2 SAT 90'S 2L NC. TRACING SR ON TELE. PT DENIES PAIN. PT LUNG SOUND WHEEZES. PT LAST BM 03/23/19. PT ON HEPARIN DRIP. HAS CARDIOLOGY CONSULT. PT NPO. PT FOR ACCU CHECK. VSS, AM ASSESSMENT CHARTED, HOURLY ROUNDING, WILL CONTINUE TO MONITOR.
[2019-03-24 15:43] LABS: AMP/METHAMP Negative (Negative); BARBITURATES Negative (Negative); BENZODIAZEPINES Negative (Negative); COCAINE Negative (Negative); METHADONE Negative (Negative); OPIATES Negative (Negative); PCP Negative (Negative); THC Negative (Negative)
--- NOTE | 2019-03-24 16:32 | NUR ---
ASSUMED PT CARE AT 0800, AOX4, UP SBA, O2 SAT 90'S RA, TRACING SR ON TELE. PT COMPLAINS OF THROAT PAIN. PT HAD CT NECK TODAY. PT LAST BM 03/23/19. PT FOR STOOL CULTURE. PT FOR GI CONSULT. VSS, AM ASSESSMENT CHARTED, HOURLY ROUNDING , CALL LIGHT WITHIN REACH, WILL CONTINUE TO MONITOR
--- NOTE | 2019-03-24 16:57 | EKG ---
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
[2019-03-25] VITALS: BP 112/67
[2019-03-25 04:00] VITALS: BP 105/43
--- NOTE | 2019-03-25 06:51 | NUR ---
VSS. SEE MAR. SEE CHARTING. PROGRESSING TOWARDS GOALS. FALL PRECAUTIONS IN PLACE. HOURLY ROUNDING FOR SAFETY.
[2019-03-25 09:00] VITALS: BP 99/46
--- NOTE | 2019-03-25 09:20 | CON ---
[address] [address] CONSULTATION Name: MENA DELAROSA Room: [address] IN .R.#: [id number] Admission: 03/24/19 Attend Phys: Andrey Quezada MD Discharge: Date of : 49 Report #: [id number] THIS REPORT FOR: //name// CC: Andrey Betts NP CARDIOLOGY CONSULTATION INDICATION: Non-ST elevation myocardial infarction. HISTORY OF PRESENT ILLNESS: The patient is a very pleasant 74-year-old white female who is well known to myself. She has a history of coronary artery disease with previous stenting to the mid LAD with a jailed diagonal. She has had intermittent issues with chest discomfort and slight elevations in troponin, felt to be due to the jailed diagonal branch. Catheterization a year ago showed no other significant disease. She presented with prolonged chest pain to the Emergency Room. The pain was not relieved with two sublingual nitroglycerins. The patient received 4 baby aspirins and nitrospray in the ambulance and by the time she arrived to the hospital, the pain was resolving. She is presently pain free and without cardiac complaint. She is on a heparin drip. She has no other complaints at this time. PAST MEDICAL HISTORY: 1. Coronary artery disease with previous intervention as outlined above. 2. Paroxysmal atrial fibrillation. 3. Hypertension. 4. Type 2 diabetes mellitus. 5. Dyslipidemia. ALLERGIES: ENALAPRIL AND LISINOPRIL. HOME MEDICATIONS: Acetaminophen 500 mg q.6 hours p.r.n., albuterol inhaler 2 puffs q.4 hours p.r.n., Eliquis 5 mg b.i.d., aspirin 81 mg daily, atorvastatin 20 mg at bedtime, vitamin D3 400 units daily, B12 500 mcg daily, iron sulfate 325 mg daily, hydrochlorothiazide 25 mg daily, isosorbide mononitrate 60 mg b.i.d., levothyroxine 150 mcg daily, losartan 100 mg daily, meloxicam 7.5 mg daily, metformin 500 mg b.i.d., multivitamin 1 tablet daily, Protonix 40 mg b.i.d., ranolazine 1000 mg t.i.d., sotalol 80 mg daily, Carafate 1 g q.i.d., and tramadol 50 mg q.6-8 hours p.r.n. FAMILY HISTORY: Positive for coronary artery disease. SOCIAL HISTORY: The patient quit smoking remotely. She [place] [address] CONSULTATION Name: MENA DELAROSA Room: [address]#: [id number] Admission: 03/24/19 Attend Phys: Andrey Quezada MD Discharge: Date of : 49 Report #: [id number] PHYSICAL EXAMINATION: VITAL SIGNS: Blood pressure 88/44, pulse 69 and regular. GENERAL: This is a pleasant lady in no distress. Mood and affect appropriate. HEENT: Extraocular muscles are intact. Mucous membranes are moist. NECK: Shows no jugular venous distention. CHEST: Reveals clear lung head without wheezes or rales. CARDIOVASCULAR: Reveals a regular rhythm without gallop or murmur. ABDOMEN: Reveals normal bowel sounds. Abdomen is soft and nontender. EXTREMITIES: Shows no edema. SKIN: Dry. LABORATORY DATA: A 12-lead EKG shows sinus rhythm without significant ST or T-wave abnormality. Labs are reviewed. Troponin is 0.33. IMPRESSION AND RECOMMENDATIONS: 1. Non-ST elevation myocardial infarction, likely due to the jailed diagonal branch. Continue heparin drip overnight. Holding anticoagulant while on heparin drip. Continuing daily aspirin. I would like a noninvasive stress test to see if there are other regions of ischemia not explained by the diagonal branch. 2. Coronary artery disease, presently pain free. Continue home regimen. 3. Paroxysmal atrial fibrillation, presently in sinus rhythm. We will resume anticoagulation once we stopped the heparin drip. 4. Hypertension. Blood pressure is low normal presently. We will follow clinically. 5. Hyperlipidemia. Continue statin agent at current dose. <ELECTRONICALLY SIGNED> By: Vadim Finley MD, FACC 03/25/19 0920 1509 [id number] Finley MD, FACC /nt
--- NOTE | 2019-03-25 10:27 | NUR ---
Pt is A&O. Resides at home alone at [facility]. Independent. Pt uses a cpap at home PRN. Has a walker available that she uses as needed. Hx of [facility]. No hx of SNF. Supportive family. Goal is home at dc. Spoke with Viral [facility]cleod to have a stress test and echo today, anticipate dc later today or tomorrow. Following.
[2019-03-25 12:11] VITALS: BP 114/64
[2019-03-25 13:46] LABS: GLYCOHEMOGLOBIN (HGB A1C) 5.4 % (4.8-5.6)
[2019-03-25 14:45] VITALS: BP 114/64
--- NOTE | 2019-03-25 14:56 | 2DMMODE ---
[place] [address] 2 D/M-MODE ECHOCARDIOGRAM Name: MENA DELAROSA Room: [address] IN [facility]#: [id number] Admission: 03/24/19 Attend Phys: Andrey Quezada, Discharge: Date of : 49 Date of Service: 03/25/19 1455 Report #: [id number] THIS REPORT FOR: //name// APPROVED REPORT Study performed: 03/25/2019 11:22:09 EXAM: Comprehensive 2D, Doppler, and color-flow Echocardiogram Patient Location: In-Patient Room #: 210 Status: routine BSA: 2.00 HR: 50 bpm BP: 99/46 mmHg Rhythm: NSR Other Information Study Quality: Good Indications Chest Pain 2D Dimensions IVSd: 13.59 (7-11mm) LVOT Diam: 21.09 (18-24mm) LVDd: 45.18 mm PWd: 11.32 (7-11mm) Ascending Ao: 36.79 (22-36mm) LVDs: 28.52 (25-40mm) Aortic Root: 34.06 mm Volumes Left Atrial Volume (Systole) LA ESV Index: 30.10 mL/m2 Aortic Valve AoV Peak Zay.: 1.44 m/s AO Peak Gr.: 8.32 mmHg LVOT Max P.39 mmHg AO Mean Gr.: 4.48 mmHg LVOT Mean P.39 mmHg LVOT Max V: 1.36 m/s AO V2 VTI: 31.46 cm LVOT Mean V: 0.84 m/s FANI (VTI): 3.72 cm2 LVOT V1 VTI: 33.47 cm Mitral Valve E/A Ratio: 0.75 MV Decel. Time: 325.29 ms MV E Max Zay.: 0.55 m/[place] [address] 2 D/M-MODE ECHOCARDIOGRAM Name: MENA DELAROSA Room: [address] IN .R.#: [id number] Admission: 03/24/19 Attend Phys: Andrey Quezada, Discharge: Date of : 49 Date of Service: 03/25/19 1455 Report #: [id number] PHT: 94.34 ms MVA (PHT): 2.33 cm2 TDI E/Lateral E': 6.88 E/Medial E': 4.58 Medial E' Zay.: 0.12 m/s Lateral E' Zay.: 0.08 m/s Pulmonary Valve PV Peak Zay.: 0.78 m/s PV Peak Gr.: 2.45 mmHg Tricuspid Valve RAP Estimate: 5.00 mmHg TR Peak Gr.: 33.09 mmHg RVSP: 38.00 mmHg PA Pressure: 38.00 mmHg Left Ventricle The left ventricle is normal size. There is normal LV segmental wall motion. Mild concentric left ventricular hypertrophy. Left ventricular systolic function is normal. The left ventricular ejection fraction is within the normal range. LVEF is 60-65%. Grade I - abnormal relaxation pattern. Right Ventricle The right ventricle is normal size. The right ventricular systolic function is normal. Atria The left atrium size is normal. The right atrium size is normal. Aortic Valve Mild aortic valve sclerosis. Trace aortic regurgitation. There is no aortic valvular stenosis. Mitral Valve The mitral valve is normal in structure. Trace mitral regurgitation. No evidence of mitral valve stenosis. Tricuspid Valve The tricuspid valve is normal in structure. Trace tricuspid regurgitation. Mild pulmonary hypertension. Pulmonic Valve The pulmonary valve is normal in structure. There is no pulmonic [place] [address] 2 D/M-MODE ECHOCARDIOGRAM Name: MENA DELAROSA Room: [address] IN [facility]#: [id number] Admission: 03/24/19 Attend Phys: Andrey Quezada, Discharge: Date of : 49 Date of Service: 03/25/19 1455 Report #: [id number] Great Vessels The aortic root is normal in size. IVC is normal in size and collapses >50% with inspiration. Pericardium There is no pericardial effusion. <Conclusion> The left ventricle is normal size. Mild concentric left ventricular hypertrophy. Left ventricular systolic function is normal. The left ventricular ejection fraction is within the normal range. LVEF is 60-65%. Grade I - abnormal relaxation pattern. The right ventricle is normal size. The left atrium size is normal. Mild aortic valve sclerosis. Trace aortic regurgitation. There is no aortic valvular stenosis. The mitral valve is normal in structure. The tricuspid valve is normal in structure. IVC is normal in size and collapses >50% with inspiration. There is no pericardial effusion. There is normal LV segmental wall motion. <ELECTRONICALLY SIGNED> By: Avila Taylor MD, FACC 03/25/19 1455 1455 1455 Avila Taylor MD, FACC /INF
[2019-03-25 19:50] VITALS: BP 119/54
--- NOTE | 2019-03-25 20:14 | NUR ---
I ASSUMED CARE OF THE PATIENT AT 0700. SHE IS ALERT AND ORIENTED X4 AND IS UP WITH ASSIST OF ONE AND A WALKER. BED IS IN THE LOW LOCKED POSITION AND CALL LIGHT IS IN REACH. HOURLY ROUNDING IS COMPLETED AND PATIENT NEEDS ARE MET. FAMILY IS AT THE BEDSIDE ALL DAY. ACHS IS OBTAINED AND INSULIN IS NOT INDICATED. PATIENT TRANSFERS TO THE BEDSIDE COMMODE. WILL CONTINUE TO [facility].
[2019-03-26] VITALS (10 sets, daily range): BP systolic 108–130; BP diastolic 46–68
[2019-03-26 05:09] LABS: HEMOGLOBIN 11.9 gm/dL (12.0-15.0); MCH 28.4 pg (26.0-34.0); MCV 85.9 fL (80.0-100.0); MPV 7.8 fl. (7.2-11.1); RBC 4.19 mil/uL (4.20-5.00); RDW-CV 15.9 % (10.5-14.5); WBC 9.7 thou/uL (4.0-11.0)
[2019-03-26 05:18] LABS: CALCIUM 9.1 mg/dL (8.5-10.1); CREATININE 0.6 mg/dL (0.6-1.3); POTASSIUM 3.4 mmol/L (3.5-5.1)
--- NOTE | 2019-03-26 06:37 | NUR ---
VSS. ASSESSMENT COMPLETED CHARTED. SEE MAR. SEE CHARTING. FALL PRECAUTIONS IN PLACE. HOURLY ROUNDING FOR SAFETY.
[2019-03-26] MEDS ORDERED: IMDUR 60 MG TAB60 M1 PO (15:50)
--- NOTE | 2019-03-26 16:13 | NUR ---
Pt discharging to home today, son in room and will transport. Pt wants HH for a nurse, martin [facility], cm faxed referral and orders.
--- NOTE | 2019-03-26 16:28 | CARDNUC ---
[place] [address] CARDIAC NUCLEAR IMAGING REPORT Name: MENA DELAROSA Room: [address] IN .R.#: [id number] Admission: 03/24/19 Attend Phys: Andrey Quezada, Discharge: Date of : 49 Date of Service: 03/26/19 1627 Report #: [id number] THIS REPORT FOR: //name// APPROVED REPORT Study performed: 03/24/2019 14:32:00 BMI: 0 Resting Data Rest SPECT myocardial perfusion imaging was performed in supine position 30 minutes following the intravenous injection of 29.6 mCi of Tc-99m Sestamibi. Time of rest injection: 1440 Date: 03/25/2019 The images were gated to evaluate regional wall motion and calculate left ventricular ejection fraction. Administration Route: IV Administration Site: Right Hand Pharmacologic Stress Pharmacologic stress test was performed by injecting Regadenoson 0.4 mg IV push over 10-15 seconds immediately followed by the intravenous injection of 32.1 mCi of Tc-99m Sestamibi. Time of stress injection: 1045 Date: 03/26/2019 Administration Route: IV Administration Site: Right Hand Gated Stress SPECT was performed 40 minutes after stress injection. The images were gated to evaluate regional wall motion and calculate left ventricular ejection fraction. Prone imaging was performed. Stress Test Details Stress Test: Pharmacologic stress testing performed using 0.4 mg of regadenoson per 5 mL given IV over 10 seconds. Reason for pharmacologic stress test: Unstable gait, Arthritis in knees, back and hips.. HR Max Heart Rate (APMHR): 148 bpm Resting HR: 63 bpm Target HR (85% APMHR): 125 bpm Max HR Achieved: 90 bpm % of APMHR: 60 Recovery HR: [place] [address] CARDIAC NUCLEAR IMAGING REPORT Name: MENA DELAROSA Room: [address]#: [id number] Admission: 03/24/19 Attend Phys: Andrey Quezada, Discharge: Date of : 49 Date of Service: 03/26/19 1627 Report #: [id number] Resting BP: 137/96 mmHg Max BP: 90/57 mmHg Recovery BP: 121/67 mmHg ECG Resting ECG: Sinus Rhythm Stress ECG: Sinus Rhythm ST Change: None Arrhythmia: None Recovery ECG: Sinus Rhythm Recovery ST Change: None Recovery Arrhythmia: None Clinical Reason for Termination: Completed protocol Stress Symptoms: Dizziness, Lightheaded, Chest pressure-mild, minimal ST elevation. Exercise duration: 00 min 00 sec Exercise capacity: 1.00 METs The patient tolerated Lexiscan infusion without significant symptoms. Nurse Comments A 74 year old female inpatient presented for sitting Lexiscan r/t recent c/o CP, dizziness, diaphoresis, NSTEMI and increased troponins. Patient tolerated test well. Recovery unremarkable with PO caffeine, effective. Patient was escorted via wheelchair by staff to Nuclear Medicine for images. Patient was stable with no complaints at that time. Stress ECG Conclusion The baseline EKG show sinus rhythm without significant ST or T wave abnormality. EKGs obtained during and post Lexiscan infusion show sinus rhythm with no significant ST or T wave changes when compared to baseline. There were no stress-induced arrhythmias. Study Quality Study: Good Artifact: No artifact Study Data At rest, the left ventricular ejection fraction was 70%.. Post stress, the left ventricular ejection was 68%.. TID = 1.02. Perfusion Perfusion images show a small [place] [address] CARDIAC NUCLEAR IMAGING REPORT Name: MENA DELAROSA Room: [address]#: [id number] Admission: 03/24/19 Attend Phys: Andrey Quezada, Discharge: Date of : 49 Date of Service: 03/26/19 1627 Report #: [id number] partially reversible defect of the apical anterior and apical wall. No other significant fixed or reversible defects are identified. Wall Motion Normal left ventricular wall motion. Nuclear Conclusion ECG Findings: negative for ischemia Clinical Findings: negative for ischemia Nuclear Findings: positive for ischemia Exercise Capacity: not assessed Left Ventricular Function: normal Risk Study: moderate Perfusion images suggest possible apical infarct with mild amount of billie-infarct ischemia. Left ventricular systolic function is fairly well-preserved on gated studies. This is a moderate risk study. <Conclusion> The baseline EKG show sinus rhythm without significant ST or T wave abnormality. EKGs obtained during and post Lexiscan infusion show sinus rhythm with no significant ST or T wave changes when compared to baseline. There were no stress-induced arrhythmias. <ELECTRONICALLY SIGNED> By: Vadim Finley MD, FACC 03/26/19 1627 1627 162 Vadim Finley MD, FACC /INF
--- NOTE | 2019-03-26 17:47 | NUR ---
PT GIVEN DISCHARGE INFORMATION. IV REMOVED. HERAT MONITOR REMOVED. FALL RISK PRECAUTIONS IN PLACE. HOURLY ROUNDING COMPLETED. PT LEFT VIA WHEELCHAIR WITH NURSING STAFF TO HOME.
== END 2019-03-26 17:54 | disposition home health service (06) | DRG 281 ==
LOC: M.ERS 00:21 → M.2W 01:37 → M.TBA-ER 01:37 → M.2W 01:37 → M.ERS 01:47 → M.2W 02:36
PROVIDERS: Family Medicine; ADMIT Internal Medicine
DX: I21.4 Non-ST elevation (NSTEMI) myocardial infarction (principal); I50.32 Chronic diastolic (congestive) heart failure; D68.59 Other primary thrombophilia; E44.1 Mild protein-calorie malnutrition; I48.0 Paroxysmal atrial fibrillation; I25.10 Atherosclerotic heart disease of native coronary artery without angina pectoris; J45.909 Unspecified asthma, uncomplicated; E78.5 Hyperlipidemia, unspecified; J44.9 Chronic obstructive pulmonary disease, unspecified; I11.0 Hypertensive heart disease with heart failure; E11.9 Type 2 diabetes mellitus without complications; F41.9 Anxiety disorder, unspecified; Z90.49 Acquired absence of other specified parts of digestive tract; Z90.710 Acquired absence of both cervix and uterus; Z79.84 Long term (current) use of oral hypoglycemic drugs; Z79.82 Long term (current) use of aspirin; Z79.01 Long term (current) use of anticoagulants; Z68.38 Body mass index [BMI] 38.0-38.9, adult; Z95.5 Presence of coronary angioplasty implant and graft; Z79.899 Other long term (current) drug therapy; Z88.8 Allergy status to other drugs, medicaments and biological substances; Z87.891 Personal history of nicotine dependence; Z82.49 Family history of ischemic heart disease and other diseases of the circulatory system; Z98.49 Cataract extraction status, unspecified eye

== ENCOUNTER 2019-12-06 14:53 | Emergency (ER) | payer MEDICARE ==
[~2019-12-06] VITALS: Ht 160 cm; Wt 87.5 kg
[2019-12-06 15:52] LABS: ABSOLUTE BASOPHILS 0.1 thou/uL (0.0-0.2); ABSOLUTE EOSINOPHILS 0.1 thou/uL (0.0-0.7); ABSOLUTE LYMPHOCYTES 2.3 thou/uL (0.8-5.3); ABSOLUTE MONOCYTES 0.8 thou/uL (0.0-1.2); ABSOLUTE NEUTROPHILS 6.3 thou/uL (1.6-8.1); BASOPHILS 1.2 %; EOSINOPHILS 0.9 %; HEMATOCRIT 39.2 % (37.0-47.0); HEMOGLOBIN 13.3 gm/dL (12.0-15.0); MCH 28.4 pg (26.0-34.0); MCHC 33.8 g/dL (28.0-37.0); MONOCYTES 7.9 %; NUCLEATED RBCS 0 /100WBC; PLATELET COUNT* 336 thou/uL (150-400); RBC 4.67 mil/uL (4.20-5.00); RDW-CV 15.9 % (10.5-14.5); WBC 9.6 thou/uL (4.0-11.0)
[2019-12-06 16:01] LABS: CALCIUM 8.8 mg/dL (8.5-10.1); CREATININE 0.9 mg/dL (0.6-1.3); POTASSIUM 3.7 mmol/L (3.5-5.1)
[2019-12-06 16:02] LABS: APTT 23.8 Seconds (25.0-31.3); PROTIME 10.2 Seconds (9.20-11.50)
[2019-12-06 16:05] LABS: ALBUMIN 3.4 g/dL (3.4-5.0); TOTAL BILIRUBIN 0.3 mg/dL (<0.1-1.0); TOTAL PROTEIN 7.3 g/dL (6.4-8.2)
[2019-12-06 17:36] LABS: URINE BILIRUBIN NEGATIVE (Negative); URINE BLOOD NEGATIVE (Negative); URINE CLARITY CLEAR; URINE COLOR YELLOW; URINE GLUCOSE-RANDOM NEGATIVE (Negative); URINE KETONES NEGATIVE (Negative); URINE LEUKOCYTES-REFLEX NEGATIVE (Negative); URINE NITRITE-REFLEX NEGATIVE (Negative); URINE PROTEIN NEGATIVE (Negative); URINE UROBILINOGEN 0.2 E.U./dl (0.2-1.0)
[2019-12-06 19:03] VITALS: BP 136/65
--- NOTE | 2019-12-07 12:55 | EKG ---
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 12/07/19 1254 1547 1547 Mo David MD, [facility] /EPI
== END 2019-12-06 19:04 | disposition home or self-care (01) ==
LOC: M.ERS 14:53
PROVIDERS: Family Medicine
DX: S16.1XXA Strain of muscle, fascia and tendon at neck level, initial encounter (principal); S00.03XA Contusion of scalp, initial encounter; R55 Syncope and collapse; R79.89 Other specified abnormal findings of blood chemistry; I10 Essential (primary) hypertension; I25.10 Atherosclerotic heart disease of native coronary artery without angina pectoris; E11.9 Type 2 diabetes mellitus without complications; J45.909 Unspecified asthma, uncomplicated; F41.9 Anxiety disorder, unspecified; Z95.5 Presence of coronary angioplasty implant and graft; Z90.49 Acquired absence of other specified parts of digestive tract; Z90.710 Acquired absence of both cervix and uterus; Z87.891 Personal history of nicotine dependence; Z88.8 Allergy status to other drugs, medicaments and biological substances; W18.09XA Striking against other object with subsequent fall, initial encounter; Y93.89 Activity, other specified; Y92.89 Other specified places as the place of occurrence of the external cause; Y99.8 Other external cause status

== ENCOUNTER 2020-09-14 14:43 | Inpatient (IN) | payer OTHER ==
[2020-09-14] VITALS (22 sets, daily range): BP systolic 91–143; BP diastolic 46–71
[~2020-09-14] VITALS: Ht 162.6 cm; Wt 84.8 kg
[~2020-09-14 14:43] MED LIST changes: -ASPIR 8181 M1 PO; +LOW DOSE ASPIRI81 M1 PO
[2020-09-14] MEDS ORDERED: METFORMIN HCL500 M3 PO (14:52)
[2020-09-14] MEDS ORDERED: FUROSEMIDE 20 M20 MG (14:53)
[2020-09-14 15:11] LABS: HEMOGLOBIN 10.6 gm/dL (12.0-15.0); MCH 26.6 pg (26.0-34.0); MCHC 32.1 g/dL (28.0-37.0); MCV 82.8 fL (80.0-100.0); MPV 7.8 fl. (7.2-11.1); NUCLEATED RBCS 0 /100WBC; PLATELET COUNT* 342 thou/uL (150-400); RBC 3.99 mil/uL (4.20-5.00); WBC 9.3 thou/uL (4.0-11.0)
[2020-09-14 15:24] LABS: CALCIUM 9.4 mg/dL (8.5-10.1); CREATININE 1.8 mg/dL (0.6-1.3); POTASSIUM 4.8 mmol/L (3.5-5.1)
[2020-09-14] MEDS ORDERED: LIPITOR 20 MG T20 M1 PO (15:25)
[2020-09-14] MEDS ORDERED: IRON325 PO (15:26)
[2020-09-14] MEDS ORDERED: VITAMIN D325 MC5 PO (15:26)
[2020-09-14] MEDS ORDERED: IMDUR 60 MG TAB60 M1 PO (15:27)
[2020-09-14] MEDS ORDERED: UNICOMPLEX M TA1 TA1 PO (15:28)
[2020-09-14] MEDS ORDERED: SORINE 80 MG TA80 MG PO (15:29)
[2020-09-14] MEDS ORDERED: PROTONIX40 M3 PO (15:29)
[2020-09-14] MEDS ORDERED: RANEXA1000 MG PO (15:29)
[2020-09-14] MEDS ORDERED: VITAMIN B-121000 MC2 PO (15:30)
[2020-09-14 15:33] LABS: APTT 31.1 Seconds (25.0-31.3); INR 1.1; PROTIME 11.9 Seconds (9.20-11.50)
[2020-09-14 15:39] LABS: CK-MB MASS 0.6 ng/mL (<0.5-3.6); MAGNESIUM 1.9 mg/dL (1.8-2.4); TOTAL BILIRUBIN 0.5 mg/dL (<0.1-1.0); TOTAL PROTEIN 6.8 g/dL (6.4-8.2)
[2020-09-14 15:57] LABS: ABSOLUTE LYMPHOCYTES 1.1 thou/uL (0.8-5.3); ABSOLUTE MONOCYTES 0.7 thou/uL (0.0-1.2); ABSOLUTE NEUTROPHILS 7.5 thou/uL (1.6-8.1); LARGE PLATELETS RARE; MICROCYTES 1+; PLATELET ESTIMATE ADEQUATE
[2020-09-14 15:58] LABS: HYPOCHROMASIA 1+
--- NOTE | 2020-09-14 16:47 | EKG ---
[place] [address] ELECTROCARDIOGRAM REPORT Name: MENA DELAROSA Room: [address]#: [id number] Admission: 09/14/20 Attend Phys: Tanesha De Discharge: Date of : 49 Date of Service: 09/14/20 1447 Report #: [id number] THIS REPORT FOR: //name// [facility] ED Test Date: 2020-09-14 Test Time: 14:47:03 Pat Name: MENA DELAROSA Department: Room: Gender: F Inoculator: [facility] : 1945 Requested By: Viet Ray Order Number: [id number] MD: Mo David Measurements Intervals [place] Rate: 54 P: 0 MN: 163 QRS: 35 QRSD: 120 T: 59 QT: 504 QTc: 478 Interpretive Statements Sinus rhythm Atrial premature complex Nonspecific intraventricular conduction delay Nonspecific T abnormalities, anterior leads artifact noted Compared to ECG 12/06/2019 15:47:45 Atrial premature complex(es) now present Intraventricular conduction delay now present T-wave abnormality now present ST (T wave) deviation now present Myocardial infarct finding still present Electronically Signed On 09-14-2020 16:47:45 CDT by Mo David [email or web address] <ELECTRONICALLY SIGNED> By: Mo David MD, [facility] 09/14/20 1647 1447 144 Mo David MD, [facility] /EPI
[2020-09-14 21:20] LABS: URINE BILIRUBIN NEGATIVE (Negative); URINE BLOOD NEGATIVE (Negative); URINE CLARITY CLEAR; URINE COLOR YELLOW; URINE GLUCOSE-RANDOM NEGATIVE (Negative); URINE KETONES NEGATIVE (Negative); URINE LEUKOCYTES-REFLEX NEGATIVE (Negative); URINE NITRITE-REFLEX NEGATIVE (Negative); URINE PROTEIN NEGATIVE (Negative); URINE UROBILINOGEN 0.2 E.U./dl (0.2-1.0)
[2020-09-15] VITALS (22 sets, daily range): BP systolic 93–149; BP diastolic 39–65
[2020-09-15 05:21] LABS: ANION GAP 12 mmol/L (7-16); BUN 21 mg/dL (7-18); CALCIUM 9.6 mg/dL (8.5-10.1); CHLORIDE 103 mmol/L (98-107); CHOLESTEROL 140 mg/dL (<200); CO2 26 mmol/L (21-32); CREATININE 1.1 mg/dL (0.6-1.3); GLUCOSE 94 mg/dL (70-99); HDL CHOLESTEROL 53 mg/dL (>40); LDL CHOLESTEROL 69 mg/dL (<100); SODIUM 141 mmol/L (136-145); TC:HDL 2.6 Ratio (Not establshd); TRIGLYCERIDE 90 mg/dL (<150); VLDL 18 mg/dL (<40)
[2020-09-15 05:24] LABS: POTASSIUM 3.3 mmol/L (3.5-5.1)
[2020-09-15 05:30] LABS: SERUM ASSESSMENT Clear
[2020-09-15 05:31] LABS: TROPONIN-I LEVEL 0.61 ng/mL (<0.06)
--- NOTE | 2020-09-15 10:22 | CARD ---
[address] [address] CARDIAC CATH REPORT Name: MENA DELAROSA Room: [address] IN ..#: [id number] Admission: 09/14/20 Attend Phys: Jaime Gorman Discharge: Date of : 49 Report #: [id number] THIS REPORT FOR: cc: Aissatou Betts Tammy RNP ~ Mo David MD [facility] APPROVED REPORT Study performed: 09/14/2020 14:49:22 Patient Details Patient Status: ED Room #: The patient is a 75 year-old female Event Personnel Mo David Chemical Equipment Sales Engineer, Jacki Hilario RN RN, Fuentes Grant BOMB SQUAD OFFICER Monitor, Yael Whittaker RTR Scrub Procedures Performed Left Heart Cath w/or w/o Coronaries [id number] [facility] Indication Abnormal ECG, Chest pain Risk Factors Arterial Hypertension, Hypercholesterolemia, Tobacco History () Previous Procedures/Diagnoses Previous PCI Procedure Narrative The patient was brought urgently to the Cardiac Catheterization Laboratory and was prepped and draped in a sterile manner. The right femoral was infiltrated with 2% Lidocaine subcutaneous anesthesia. A Raymond 6 FR sheath was inserted into the right femoral artery. Coronary angiography was performed using coronary diagnostic catheters. The right coronary system was accessed and visualized with a JR4 catheter. The left coronary system was accessed and visualized with a JL4 catheter. The left ventricle was accessed and visualized with a PIG catheter. Left ventricular/Aortic Valve gradient assessed via catheter pullback. Left ventriculogram was performed in VILLASENOR projection. The patient tolerated the procedure well and there were no complications associated with [place] [address] CARDIAC CATH REPORT Name: MENA DELAROSAN Room: [address] IN [facility]#: [id number] Admission: 09/14/20 Attend Phys: Jaime Gorman Discharge: Date of : 49 Report #: [id number]. 6 lebanese venous sheath was placed in the right femoral vein and sutured in place. Attempted procedure from the right radial artery. 6 lebanese sheath was placed in the right radial artery but an arterial loop was noted in the brachial artery. Therefore, the procedure was performed from the right femoarl atery. Sheath was sutured in place at the end of the procedure. IV Dopamine was started because of hypotension. Intraoperative Conscious Sedation Sedation start time: 1522 Case end Time: 1632 Versed 2.0 mg Fluoro Time: 7.0 minutes Dose: DAP 01275 cGycm2 1236 mGy Coronary Angiography The patient's coronary anatomy is right dominant. Diagnostic Cath Left Main 0% stenosis LAD stent in the mid lad had 0% stenosis Diagonal 1 medium sized vessel that arose from the proximal portion of the lad stent had an ostial 90% stenosis Circumflex 0% stenosis Right Coronary 40% proximal stenosis and 30% mid stenosis Left Ventriculography The left ventricular ejection fraction is estimated to be 60-65%. Left ventricular wall motion abnormalities are not present. There is no mitral insufficiency. Hemodynamics The aortic pressure is 68/35 mmHg with a mean of 48 mmHg. The left ventricular pressure is 71/10 mmHg with a mean of mmHg. The left ventricular end diastolic pressure is 12 mmHg. There was no gradient across the aortic valve upon pullback. Pullback from the left ventricle to the aorta revealed no gradient across the aortic valve. PCI Technique Lesion Anticoagulation was achieved with Heparin. Percutaneous coronary intervention was performed on the first diagonal branch segment. The lesion stenosis prior to intervention was 90% with SALONI 3 flow. A xb3.5 Guide Catheter was used to engage [place] [address] CARDIAC CATH REPORT Name: MENA DELAROSA Room: [address]#: [id number] Admission: 09/14/20 Attend Phys: Jaime Gorman Discharge: Date of : 49 Report #: [id number] Interventional Guidewire was used to cross the lesion. BALLOON DILATION BMW wire was placed into the distal lad. Unable to advance asami wire into the diagonal branch because of acute takeoff from the lad and stent struts noted in the lad. Final angiography reveals 90 % stenosis with SALONI 3 flow. COMMENTS Unable to advance guide wire into the lad. Procedure was abandoned Conclusion 1. no restenosis of the stent in the lad 2. 90% ostial stenosis of medium sized first diagonal branch 3. LVEF 60-65% 4. Unable to place guide wire into the diagonal branch, therefore additional efforts at PTCA were abandoned Recommendations Cardiac Rehabilitation Referral Aggressive Medical Therapy <ELECTRONICALLY SIGNED> By: Mo David MD, [facility] 09/15/20 1022 1022 1022Davijaime David MD, [facility] /INF
--- NOTE | 2020-09-15 12:10 | CON ---
[address] [address] CONSULTATION Name: MENA DELAROSA Room: [address] ADM IN [place].#: [id number] Admission: 09/14/20 Attend Phys: Jaime Gorman Discharge: Date of : 49 Report #: [id number] THIS REPORT FOR: cc: Aissatou Betts Tammy RNP ~ Mo David MD [facility] DATE OF SERVICE: 09/14/2020 CARDIOLOGY CONSULTATION HISTORY OF PRESENT ILLNESS: The patient is a 75-year-old single white female who came to the Emergency Room complaining of nausea and vomiting. The patient notes that in 2001, she was down in [place] and had an episode of nausea and vomiting and was told she had a heart attack. She had a coronary stent placed. She has done well since that time. She apparently has a previous history of atrial fibrillation, although she never required cardioversion. She currently takes Eliquis, aspirin, diabetic medications, high blood pressure pills and high cholesterol medications. She has recently been followed by my partner, Dr. Finley. She has not had a stress test recently. She stayed active, going for walks. She was doing well until today. She developed an episode of nausea, vomiting and some chest pressure. She felt somewhat short of breath, but denied diaphoresis. She called paramedics and she was brought here to [place] by ambulance. At this time, she is having no significant chest pain. She denied a history of fever, cough, bleeding. Denied any palpitations or syncope. She denied the discomfort being related to food. PAST MEDICAL HISTORY: She has had cholecystectomy, hysterectomy, hypertension, diabetes, hyperlipidemia, atrial fibrillation. She has been taking her medications. ALLERGIES: SHE HAS AN ALLERGY TO 2 PREVIOUS MEDICATIONS, ALTHOUGH SHE DOES NOT KNOW THE NAMES OF THEM. FAMILY HISTORY: Her father had heart attack. SOCIAL HISTORY: She is , lives by herself in [place]. She quit smoking a couple of weeks ago. No alcohol abuse. REVIEW OF SYSTEMS: No history of stroke, asthma, although she does use an inhaler occasionally. No liver disease, kidney disease, cancer, psychiatric illness, chronic skin condition. PHYSICAL EXAMINATION: GENERAL: Revealed an elderly female, [place] [address] CONSULTATION Name: MENA DELAROSAN Room: [address]#: [id number] Admission: 09/14/20 Attend Phys: Jaime Gorman Discharge: Date of : 49 Report #: [id number] VITAL SIGNS: Her blood pressure is 120/70, pulse is 60 and regular, respirations nonlabored. HEENT: She was anicteric. Conjunctivae pink. Mucous membranes moist. NECK: Veins do not appear distended. No carotid bruits. CHEST: Clear to auscultation. CARDIOVASCULAR: Regular bradycardia, no significant murmur. ABDOMEN: Soft. EXTREMITIES: Had no edema. Dorsalis pedis pulse 3+ bilaterally. SKIN: Cool and dry. NEUROLOGIC: Nonfocal. IMAGING: ECG showed sinus bradycardia, evidence of previous inferior infarction, nonspecific T-wave changes. IMPRESSION AND RECOMMENDATIONS: 1. Acute coronary syndrome. Recommend repeat cardiac catheterization. 2. Hypertension. 3. Diabetes. 4. Hyperlipidemia. 5. Tobacco abuse. 6. Previous history of atrial fibrillation. I would hold [email or web address] at this time. <ELECTRONICALLY SIGNED> By: Mo David MD, FACC 09/15/20 1210 1508 [id number] David MD, FACC /nt
[2020-09-15] MEDS ORDERED: CLARITIN10 MG PO (18:29)
[2020-09-16] VITALS (7 sets, daily range): BP systolic 107–120; BP diastolic 51–66
[2020-09-16 03:36] LABS: CALCIUM 8.7 mg/dL (8.5-10.1); CREATININE 0.7 mg/dL (0.6-1.3); POTASSIUM 4.1 mmol/L (3.5-5.1)
[2020-09-16 03:44] LABS: HEMATOCRIT 31.1 % (37.0-47.0); HEMOGLOBIN 10.1 gm/dL (12.0-15.0); MCH 26.4 pg (26.0-34.0); MCHC 32.5 g/dL (28.0-37.0); MCV 81.1 fL (80.0-100.0); MPV 8.1 fl. (7.2-11.1); RBC 3.83 mil/uL (4.20-5.00); RDW-CV 18.3 % (10.5-14.5); WBC 7.7 thou/uL (4.0-11.0)
[2020-09-17 04:15] LABS: HEMATOCRIT 31.1 % (37.0-47.0); HEMOGLOBIN 10.1 gm/dL (12.0-15.0); MCH 26.5 pg (26.0-34.0); MCHC 32.4 g/dL (28.0-37.0); MCV 81.7 fL (80.0-100.0); MPV 7.7 fl. (7.2-11.1); RBC 3.8 mil/uL (4.20-5.00); RDW-CV 18.3 % (10.5-14.5)
[2020-09-17 04:33] LABS: CALCIUM 9.3 mg/dL (8.5-10.1); CREATININE 0.6 mg/dL (0.6-1.3); POTASSIUM 3.7 mmol/L (3.5-5.1)
[2020-09-17 04:34] VITALS: BP 95/59
[2020-09-17 08:02] VITALS: BP 124/77
[2020-09-17 13:30] VITALS: BP 124/70
[2020-09-17 16:00] VITALS: BP 123/70
[2020-09-17 20:23] VITALS: BP 112/59
[2020-09-17 23:52] VITALS: BP 99/45
[2020-09-18 04:51] VITALS: BP 106/59
[2020-09-18 13:20] VITALS: BP 122/51
== END 2020-09-18 14:22 | disposition home health service (06) | DRG 250 ==
LOC: M.ERS 14:43 → M.CL 14:55 → M.TBA-CV 14:55 → M.CL 17:39 → M.ICU 17:39 → M.2W 09-17 13:57
PROVIDERS: Family Medicine; Internal Medicine Cardiovascular Disease; ADMIT Internal Medicine; ATTEND Internal Medicine
PROC: B2151ZZ Fluoroscopy of Left Heart using Low Osmolar Contrast (ICD-10-PCS; principal; 2020-09-14)
PROC: B2111ZZ Fluoroscopy of Multiple Coronary Arteries using Low Osmolar Contrast (ICD-10-PCS; principal; 2020-09-14)
PROC: 02703ZZ Dilation of Coronary Artery, One Artery, Percutaneous Approach (ICD-10-PCS; principal; 2020-09-14)
PROC: 4A023N7 Measurement of Cardiac Sampling and Pressure, Left Heart, Percutaneous Approach (ICD-10-PCS; principal; 2020-09-14)
DX: I21.A1 Myocardial infarction type 2 (principal); N17.0 Acute kidney failure with tubular necrosis; I24.9 Acute ischemic heart disease, unspecified; I25.110 Atherosclerotic heart disease of native coronary artery with unstable angina pectoris; Z20.822 Contact with and (suspected) exposure to COVID-19; I10 Essential (primary) hypertension; J45.909 Unspecified asthma, uncomplicated; E11.9 Type 2 diabetes mellitus without complications; F41.9 Anxiety disorder, unspecified; I95.9 Hypotension, unspecified; H54.61 Unqualified visual loss, right eye, normal vision left eye; G47.33 Obstructive sleep apnea (adult) (pediatric); E78.5 Hyperlipidemia, unspecified; I48.91 Unspecified atrial fibrillation; Z95.5 Presence of coronary angioplasty implant and graft; Z90.710 Acquired absence of both cervix and uterus; Z98.49 Cataract extraction status, unspecified eye; Z88.8 Allergy status to other drugs, medicaments and biological substances; Z87.891 Personal history of nicotine dependence; Z90.49 Acquired absence of other specified parts of digestive tract; Z79.899 Other long term (current) drug therapy

== ENCOUNTER 2020-12-05 22:31 | Inpatient (IN) | payer OTHER ==
[~2020-12-05] VITALS: Ht 157.5 cm; Wt 87.1 kg
[~2020-12-05 22:31] MED LIST changes: +CLARITIN10 MG PO; +FUROSEMIDE 20 M20 MG; +METFORMIN HCL500 M3 PO; +PROTONIX40 M3 PO; +RANEXA1000 MG PO; +SORINE 80 MG TA80 MG PO; +UNICOMPLEX M TA1 TA1 PO; +VITAMIN B-121000 MC2 PO; +VITAMIN D325 MC5 PO
[2020-12-05 23:14] LABS: ABSOLUTE BASOPHILS 0.1 thou/uL (0.0-0.2); ABSOLUTE EOSINOPHILS 0.1 thou/uL (0.0-0.7); ABSOLUTE LYMPHOCYTES 1.8 thou/uL (0.8-5.3); ABSOLUTE MONOCYTES 0.8 thou/uL (0.0-1.2); ABSOLUTE NEUTROPHILS 7.6 thou/uL (1.6-8.1); BASOPHILS 1.1 %; EOSINOPHILS 0.9 %; HEMOGLOBIN 11.5 gm/dL (12.0-15.0); LYMPHOCYTES 17.5 %; MCH 26.3 pg (26.0-34.0); MCHC 32.9 g/dL (28.0-37.0); MONOCYTES 7.7 %; MPV 7.6 fl. (7.2-11.1); NUCLEATED RBCS 0 /100WBC; PLATELET COUNT* 319 thou/uL (150-400); POLYS 72.8 %; RBC 4.38 mil/uL (4.20-5.00); RDW-CV 18.6 % (10.5-14.5); WBC 10.4 thou/uL (4.0-11.0)
[2020-12-05 23:20] VITALS: BP 111/62
[2020-12-05 23:22] LABS: CALCIUM 8.8 mg/dL (8.5-10.1); POTASSIUM 3.4 mmol/L (3.5-5.1)
[2020-12-05 23:28] LABS: APTT 28.5 Seconds (25.0-31.3); PROTIME 10.7 Seconds (9.20-11.50)
[2020-12-05 23:35] LABS: ALBUMIN 3.3 g/dL (3.4-5.0); MAGNESIUM 1.5 mg/dL (1.8-2.4); TOTAL BILIRUBIN 0.4 mg/dL (<0.1-1.0); TOTAL PROTEIN 7.2 g/dL (6.4-8.2)
[2020-12-05 23:42] LABS: PO2 82.8 mmHg (75.0-100.0); pH 7.365 (7.340-7.450)
[2020-12-05 23:43] LABS: PCO2 50.1 mmHg (35.0-45.0)
--- NOTE | 2020-12-05 23:47 | NUR ---
CENTRAL LINE PLACED BY DR. TAO.
[2020-12-06] VITALS (100 sets, daily range): BP systolic 92–135; BP diastolic 40–82
--- NOTE | 2020-12-06 00:28 | NUR ---
SPOKE WITH IFTIKHAR (SON) TO GIVE AN UPDATE ON THE PT'S CONDITION.
[2020-12-06 01:37] LABS: URINE BILIRUBIN NEGATIVE (Negative); URINE BLOOD NEGATIVE (Negative); URINE CLARITY CLEAR; URINE COLOR DARK YELLOW; URINE GLUCOSE-RANDOM NEGATIVE (Negative); URINE KETONES NEGATIVE (Negative); URINE LEUKOCYTES-REFLEX NEGATIVE (Negative); URINE NITRITE-REFLEX NEGATIVE (Negative); URINE PROTEIN NEGATIVE (Negative); URINE SPECIFIC GRAVITY >= 1.030 (1.005-1.030); URINE UROBILINOGEN 0.2 E.U./dl (0.2-1.0)
[2020-12-06] MEDS ORDERED: COZAAR 25 MG TA25 M1 PO (02:28)
[2020-12-06] MEDS ORDERED: DONEPEZIL HCL 55 M1 PO (02:28)
[2020-12-06] MEDS ORDERED: ZANTAC-360 (FAM10 MG PO (02:29)
--- NOTE | 2020-12-06 11:49 | EKG ---
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 : 1945 Requested By: Adele Stanley Order Number: [id number] Reading MD: Vadim Finley Measurements Intervals [place] Rate: 65 P: 24 NH: 188 QRS: 28 QRSD: 93 T: 83 QT: 458 QTc: 477 Interpretive Statements Sinus rhythm Probable left atrial enlargement Probable anteroseptal infarct, old Baseline wander in lead(s) II,aVF Compared to ECG 09/14/2020 14:47:03 Myocardial infarct finding now present Atrial premature complex(es) no longer present Intraventricular conduction delay no longer present T-wave abnormality no longer present Electronically Signed On 12-06-2020 11:49:36 CDT by Vadim Finley [email or web address] <ELECTRONICALLY SIGNED> By: Vadim Finley MD, [facility] 12/06/20 1149 2307 2307 Vadim Finley MD, [facility] /EPI
[2020-12-07] VITALS (17 sets, daily range): BP systolic 106–142; BP diastolic 43–92
[2020-12-07] MEDS ORDERED: HYDROCHLOROTHIA25 M1 PO (01:54)
[2020-12-07] MEDS ORDERED: SORINE 80 MG TA80 MG PO (01:56)
[2020-12-07] MEDS ORDERED: LEVO-T100 MCG PO (01:57)
[2020-12-07] MEDS ORDERED: ARICEPT10 M1 PO ×2 (01:59→02:00)
[2020-12-07] MEDS ORDERED: RANOLAZINE ER1000 MG PO (02:01)
[2020-12-07 05:28] LABS: ABSOLUTE EOSINOPHILS 0.1 thou/uL (0.0-0.7); ABSOLUTE LYMPHOCYTES 1.7 thou/uL (0.8-5.3); ABSOLUTE MONOCYTES 0.7 thou/uL (0.0-1.2); BASOPHILS 0.2 %; EOSINOPHILS 0.7 %; HEMATOCRIT 28.5 % (37.0-47.0); LYMPHOCYTES 20.3 %; MCH 26.9 pg (26.0-34.0); MCHC 33.4 g/dL (28.0-37.0); MCV 80.4 fL (80.0-100.0); MONOCYTES 7.9 %; MPV 7.6 fl. (7.2-11.1); NUCLEATED RBCS 0 /100WBC; PLATELET COUNT* 284 thou/uL (150-400); POLYS 70.9 %; RBC 3.55 mil/uL (4.20-5.00); RDW-CV 18.8 % (10.5-14.5); WBC 8.4 thou/uL (4.0-11.0)
[2020-12-07 05:30] LABS: HEMOGLOBIN 9.5 gm/dL (12.0-15.0)
[2020-12-07 05:46] LABS: BUN 8 mg/dL (7-18); CALCIUM 8.5 mg/dL (8.5-10.1); CHLORIDE 109 mmol/L (98-107); TC:HDL 2.2 Ratio (Not establshd); TOTAL BILIRUBIN 0.2 mg/dL (<0.1-1.0); VLDL 15 mg/dL (<40)
[2020-12-07 05:47] LABS: ALBUMIN 2.7 g/dL (3.4-5.0); ALKALINE PHOSPHATASE 74 U/L (46-116); ANION GAP 4 mmol/L (7-16); CHOLESTEROL 116 mg/dL (<200); CO2 31 mmol/L (21-32); CREATININE 0.7 mg/dL (0.6-1.3); GLUCOSE 89 mg/dL (70-99); HDL CHOLESTEROL 53 mg/dL (>40); LDL CHOLESTEROL 48 mg/dL (<100); POTASSIUM 3.3 mmol/L (3.5-5.1); SERUM ASSESSMENT Clear; SGOT 10 U/L (15-37); SGPT 11 U/L (30-65); SODIUM 144 mmol/L (136-145); TOTAL PROTEIN 5.5 g/dL (6.4-8.2); TRIGLYCERIDE 77 mg/dL (<150)
--- NOTE | 2020-12-07 10:43 | EKG ---
[place] [address] ELECTROCARDIOGRAM REPORT Name: BerylMENA SCOTT Room: [address] ADM IN .R.#: [id number] Admission: 12/06/20 Attend Phys: Anastasia Mann, Discharge: Date of : 49 Date of Service: 12/06/20 1351 Report #: [id number] THIS REPORT FOR: //name// [facility] Test Date: 2020-12-06 Test Time: 13:51:14 Pat Name: MENA DELAROSA Department: Room: [address] Gender: F Crew Leader Gluing: MENDOZA MADRID : 1945 Requested By: Anastasia Mann Order Number: [id number] Reading MD: Avila Taylor Measurements Intervals [place] Rate: 59 P: 31 MO: 197 QRS: 24 QRSD: 84 T: 59 QT: 456 QTc: 452 Interpretive Statements Sinus rhythm Probable anterolateral infarct, old Compared to ECG 12/05/2020 23:07:03 No significant changes Electronically Signed On 12-07-2020 10:43:11 CDT by Avila Taylor [email or web address] <ELECTRONICALLY SIGNED> By: Avila Taylor MD, [facility] 12/07/20 1043 1351 1351 Avila Taylor MD, [facility] /EPI
--- NOTE | 2020-12-07 12:59 | 2DMMODE ---
[place] [address] 2 D/M-MODE ECHOCARDIOGRAM Name: MENA DELAROSA [facility] IN .R.#: [id number] Admission: 12/06/20 Attend Phys: Anastasia Mann, Discharge: Date of : 49 Date of Service: 12/07/20 1258 Report #: [id number] THIS REPORT FOR: cc: Aissatou Betts Tammy RNP Holkins,Avila Elizalde MD [facility] ~ APPROVED REPORT Study performed: 12/07/2020 10:18:20 EXAM: Comprehensive 2D, Doppler, and color-flow Echocardiogram Patient Location: In-Patient Room #: [facility] Status: routine BSA: 1.90 HR: 68 bpm BP: 126/64 mmHg Rhythm: NSR Other Information Study Quality: Good Indications Dyspnea 2D Dimensions IVSd: 10.62 (7-11mm) LVOT Diam: 21.99 (18-24mm) LVDd: 50.16 mm PWd: 7.41 (7-11mm) Ascending Ao: 36.26 (22-36mm) LVDs: 24.90 (25-40mm) Aortic Root: 38.10 mm Volumes Left Atrial Volume (Systole) LA ESV Index: 27.80 mL/m2 Aortic Valve AoV Peak Zay.: 1.66 m/s AO Peak Gr.: 11.05 mmHg LVOT Max P.66 mmHg AO Mean Gr.: 6.18 mmHg LVOT Mean P.86 mmHg LVOT Max V: 1.47 m/s AO V2 VTI: 37.97 cm LVOT Mean V: 0.88 m/s FANI (VTI): 3.50 cm2 LVOT V1 VTI: 35.02 cm AI [place]: 2.12 m/s2 [place] [address] 2 D/M-MODE ECHOCARDIOGRAM Name: MENA DELAROSA Room: [address] IN .R.#: [id number] Admission: 12/06/20 Attend Phys: Anastasia Mann, Discharge: Date of : 49 Date of Service: 12/07/20 1258 Report #: [id number] AI PHT: 541.00 ms Mitral Valve E/A Ratio: 1.18 MV Decel. Time: 207.19 ms MV E Max Zay.: 0.89 m/s MV PHT: 60.09 ms MVA (PHT): 3.66 cm2 TDI E/Lateral E': 8.09 E/Medial E': 8.90 Medial E' Zay.: 0.10 m/s Lateral E' Zay.: 0.11 m/s Pulmonary Valve PV Peak Zay.: 0.81 m/s PV Peak Gr.: 2.60 mmHg Tricuspid Valve RAP Estimate: 5.00 mmHg TR Peak Gr.: 48.36 mmHg RVSP: 53.00 mmHg PA Pressure: 53.00 mmHg Left Ventricle The left ventricle is normal size. There is anteroapical hypokinesis noted. There is normal left ventricular wall thickness. Left ventricular systolic function is normal. The left ventricular ejection fraction is within the normal range. LVEF is 55-60%. The left ventricular diastolic function is normal. Right Ventricle The right ventricle is normal size. The right ventricular systolic function is normal. Atria The left atrium size is normal. The right atrium size is normal. Aortic Valve Mild aortic valve sclerosis. Mild aortic regurgitation. No hemodynamically significant valvular aortic stenosis. Mitral Valve The mitral valve is normal in structure. Mild mitral regurgitation. No evidence of mitral valve stenosis. [place] [address] 2 D/M-MODE ECHOCARDIOGRAM Name: MENA DELAROSA Room: [address] IN [facility]#: [id number] Admission: 12/06/20 Attend Phys: Anastasia Mann, Discharge: Date of : 49 Date of Service: 12/07/20 1258 Report #: [id number] The tricuspid valve is normal in structure. Mild to moderate tricuspid regurgitation. Moderate pulmonary hypertension. Pulmonic Valve The pulmonary valve is normal in structure. There is no pulmonic valvular regurgitation. Great Vessels The aortic root is normal in size. IVC is normal in size and collapses >50% with inspiration. Pericardium There is no pericardial effusion. <Conclusion> The left ventricle is normal size. There is normal left ventricular wall thickness. Left ventricular systolic function is normal. The left ventricular ejection fraction is within the normal range. LVEF is 55-60%. The right ventricle is normal size. The left atrium size is normal. Mild aortic valve sclerosis. Mild aortic regurgitation. No hemodynamically significant valvular aortic stenosis. The mitral valve is normal in structure. Mild mitral regurgitation. The tricuspid valve is normal in structure. Mild to moderate tricuspid regurgitation. Moderate pulmonary hypertension. IVC is normal in size and collapses >50% with inspiration. There is no pericardial effusion. There is anteroapical hypokinesis noted. <ELECTRONICALLY SIGNED> By: Avila Taylor MD, FACC 12/07/20 1258 1258 1258 Avila Taylor MD, FACC /INF
--- NOTE | 2020-12-07 15:55 | NUR ---
ICU Rounds: Spoke with patient today at bedside with herbert Myers and son Preeti. Per patient she lives alone in an apt with 4 stairs leading to apt from the parking lot. There are handrails for support. Patient currently uses a cane regularly for walking when her knee hurts and or her left side is weak. Patient has left sided weakness, per nursing. Patient also uses a walker with a seat when she gets dizzy or feels unsteady. When she has "dizzy spells" she will sit down on the walker. No hx of DME, services, dialysis or infusion therapy. Patient is independent with ADLS. Patient currently on services with [facility] . Per patient, a nurse comes out to do therapies and check BP 1-2 times a week. Patient would like to complete DPOA paperwork. CM to complete. Per nursing, patient has dementia and sundowning. Patient will get very confused overnight. Nursing also stated that patient desats overnight so requesting an overnight oximetry test to determine if O2 is needed. Per granddaughter, the patient was found on the ground recently and patient did not remember how she got there. Therpies to be ordered to help determine safe dc plan. Possible SNF at [place].
--- NOTE | 2020-12-07 18:34 | CON ---
[place] [address] CONSULTATION Name: MENA DELAROSA Room: [address] IN ..#: [id number] Admission: 12/06/20 Attend Phys: Anastasia Mann MD Discharge: Date of : 49 Report #: [id number] THIS REPORT FOR: cc: Aissatou Betts Tammy RNP Liston, Michael J. MD [facility] ~ DOC #: [id number] Vadim Finley MD DATE OF CONSULTATION: 12/06/2020 INDICATION: Elevated troponin. HISTORY OF PRESENT ILLNESS: The patient is a 75-year-old white female who is well known to myself. She has a history of coronary artery disease with previous stenting to the mid left anterior descending coronary artery. She presently denies any chest pain or shortness of breath. She had an episode yesterday of nausea without vomiting and weakness. She apparently had a fall at home and was unable to get up. She pressed her alert button and EMS transported her to the hospital for further treatments. She is without cardiac complaint. PAST MEDICAL HISTORY: 1. Percutaneous coronary intervention with stent placement in 2010. 2. Paroxysmal atrial fibrillation. 3. Cerebrovascular accident. 4. History of tobacco use. 5. Hyperlipidemia. 6. Type 2 diabetes mellitus. 7. Previous cholecystectomy. 8. Previous hysterectomy. ALLERGIES: LISINOPRIL AND ENALAPRIL. HOME MEDICATIONS: Eliquis 5 mg p.o. b.i.d., atorvastatin 20 mg at bedtime, Aricept 5 mg daily, Pepcid 10 mg daily, furosemide 20 mg daily, losartan 25 mg daily, metformin 500 mg b.i.d., Nitrostat sublingual p.r.n., Protonix 40 mg b.i.d. and tramadol 50 mg q.6-8 hours p.r.n. SOCIAL HISTORY: The patient is . She lives alone in [place]. She quit smoking a few months ago. She does not abuse alcohol. FAMILY HISTORY: The patient's father had coronary artery disease with myocardial infarction. REVIEW OF SYSTEMS: A 14-point review of systems positive for nausea without vomiting. No hematemesis, melena or hematochezia. [place] [address] CONSULTATION Name: MENA DELAROSA Room: [address]#: [id number] Admission: 12/06/20 Attend Phys: Anastasia Mann MD Discharge: Date of : 49 Report #: [id number] pain. She has lightheadedness and dizziness on occasion. She has dyspnea on exertion, but no orthopnea or paroxysmal nocturnal dyspnea. A 14-point review of systems otherwise unremarkable. PHYSICAL EXAMINATION: VITAL SIGNS: Blood pressure 115/52 and pulse 61 and regular. GENERAL: This is a pleasant elderly female who does not appear to be in any distress. HEENT: Head is normocephalic, atraumatic. Extraocular muscles intact. Mucous membranes are moist. NECK: Without jugular venous distention. CHEST: Examination of the chest reveals clear lung head without wheezes or rales. CARDIAC: Exam reveals a regular rhythm with normal S1 and S2. I do not appreciate gallop or murmur. ABDOMEN: Examination of the abdomen reveals normal bowel sounds. Abdomen is soft and nontender. EXTREMITIES: Examination of the extremities shows trace ankle edema. SKIN: Warm and dry. LABORATORY DATA: Labs are reviewed. Sodium 135, potassium 3.4, chloride 98, bicarbonate 28, BUN 20, creatinine 1.0 and serum glucose 130. LFTs within normal limits. Troponin on arrival was 0.25 and subsequently 0.25 and 0.24. From review of the records, it appears that her troponins are chronically elevated. White blood cell count 10.4, hemoglobin 11.5 and platelet count 319,000. Chest x-ray: No acute cardiopulmonary processes. IMPRESSION AND RECOMMENDATIONS: 1. Elevated troponin, which appears to be chronic. She is not having any symptoms to suggest acute coronary syndrome. We will order echocardiogram for a.m. Continue home medications as outlined above. 2. Paroxysmal atrial fibrillation, presently maintaining sinus rhythm. She is chronically anticoagulated. I would continue Eliquis at this time. 3. Dyslipidemia. Continue home statin agent. 4. Hypertension. Blood pressure is stable on current regimen. 5. Type 2 diabetes mellitus per hospitalist. Vadim Finley [place] [address] CONSULTATION Name: MENA DELAROSAN Room: [address] IN ..#: [id number] Admission: 12/06/20 Attend Phys: Anastasia Mann MD Discharge: Date of : 49 Report #: [id number] <ELECTRONICALLY SIGNED> By: Vadim Finley MD, FACC 12/07/20 1834 1327 [facility]37[facility] Fin[facility] MD, LEEANN /nt
[2020-12-08] VITALS (17 sets, daily range): BP systolic 112–159; BP diastolic 62–92
[2020-12-08 03:06] LABS: GLYCOHEMOGLOBIN (HGB A1C) 5.6 % (4.8-5.6)
[2020-12-08 04:58] LABS: ABSOLUTE BASOPHILS 0.1 thou/uL (0.0-0.2); ABSOLUTE EOSINOPHILS 0.1 thou/uL (0.0-0.7); ABSOLUTE LYMPHOCYTES 1.9 thou/uL (0.8-5.3); ABSOLUTE MONOCYTES 0.7 thou/uL (0.0-1.2); BASOPHILS 0.8 %; EOSINOPHILS 1.5 %; HEMATOCRIT 27.4 % (37.0-47.0); HEMOGLOBIN 9.2 gm/dL (12.0-15.0); LYMPHOCYTES 23.9 %; MCHC 33.6 g/dL (28.0-37.0); MCV 80.4 fL (80.0-100.0); MONOCYTES 9.2 %; MPV 7.6 fl. (7.2-11.1); NUCLEATED RBCS 0 /100WBC; PLATELET COUNT* 298 thou/uL (150-400); POLYS 64.6 %; RBC 3.41 mil/uL (4.20-5.00); RDW-CV 19.1 % (10.5-14.5); WBC 7.8 thou/uL (4.0-11.0)
[2020-12-08 05:10] LABS: CALCIUM 8.5 mg/dL (8.5-10.1); CREATININE 0.6 mg/dL (0.6-1.3)
[2020-12-08 05:37] LABS: POTASSIUM 2.9 mmol/L (3.5-5.1)
--- NOTE | 2020-12-08 06:05 | NUR ---
ASSUMED CARE OF PT AFTER REPORT AT 0000 FROM WILL RN. Melina&OX2-3. FORGETFUL AT TIMES. 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 PT WITH CARRENO TO DEPENDENT DRAIN. FALL PRECAUTIONS IN PLACE. ON SLEEP STUDY LAST NIGHT. CALL LIGHT WITHIN REACH.
[2020-12-08 06:41] LABS: MAGNESIUM 1.6 mg/dL (1.8-2.4); PHOSPHORUS* 2.5 mg/dL (2.5-4.9)
--- NOTE | 2020-12-08 11:15 | EKG ---
[place] [address] ELECTROCARDIOGRAM REPORT Name: MENA DELAROSA Room: [address] ADM IN ..#: [id number] Admission: 12/06/20 Attend Phys: Anastasia Mann, Discharge: Date of : 49 Date of Service: 12/08/20901 Report #: [id number] THIS REPORT FOR: //name// [facility] Test Date: 2020-12-08 Test Time: 09:02:20 Pat Name: MENA DELAROSA Department: Room: [address] Gender: F Lens Polisher: PREETHI : 1945 Requested By: Anastasia Mann Order Number: [id number] Reading MD: Avila Taylor Measurements Intervals [place] Rate: 120 P: RI: QRS: 43 QRSD: 84 T: 237 QT: 253 QTc: 358 Interpretive Statements Atrial fibrillation Low voltage, precordial leads Nonspecific repol abnormality, diffuse leads Compared to ECG 12/06/2020 13:51:14 Low QRS voltage now present Early repolarization now present Sinus rhythm no longer present Myocardial infarct finding no longer present Electronically Signed On 12-08-2020 11:15:16 CDT by Avila Taylor [email or web address] <ELECTRONICALLY SIGNED> By: Avila Taylor MD, [facility] 12/08/20 1115 1 1 Avila Taylor MD, [facility] /EPI
--- OUTSIDE RECORDS SUMMARY | 2020-12-08 12:38 | XMS REPORT | Summary of Care ---
Demographics + + + | Address | [address] [address] | | | [place] [address] | + + + | Home Phone | | + + + | Preferred Language | Unknown | + + + | Marital Status | | + + + | Islam Affiliation | Unknown | + + + | Race | White | + + + | Ethnic Group | Not or | + + + Author + + + | Author | [facility] | + + + | Organization | [facility] | + + + | Address | Unknown | + + + | Phone | Unavailable | + + + Support + + +---------+ + | Name | Relationship | Address | Phone | + + +---------+ + | Mitzi Jules | ECON | Unknown | | + + +---------+ + | Killian Jules | ECON | Unknown | | + + +---------+ + Care Team Providers + +------+ + | Care Shoe Packer Name | Role | Phone | + +------+ + | Aissatou Betts PHOTO RETOUCHER | PCP | | + +------+ + Encounter Details +------+---------+ + + + | Date | Type | Department | Care Team | Description | +------+---------+ + + + | 11/18 | Letter | Roque Riojas | Aissatou Betts, | | | 08/08 | (Out) | Internal | PHOTO RETOUCHER [address] | | | [address] | | [address] | | | | | [address] | [address] | | | | | [address] | [place], [place] | | | | | [place], [place] | [address] | | | | | [address] | [phone] | | | | | [phone] | [phone] | | | | | | (Fax) | | +------+---------+ + + + Allergies + + +---------+--------+ + | Active Allergy | Reactions | Severit | Noted | Comments | | | | y | Date | | + + +---------+--------+ + | Enalapril | Other (See | | 10/03/ | cough | | | Comments) | | 2017 | | + + +---------+--------+ + | Lisinopril | Other (See | | 01/01/ | cough | | | Comments) | | 2017 | | + + +---------+--------+ + documented as of this encounter (statuses as of 12/08/2020) Medications + + +---------+--------+-----+-----+------+ | Medication | Sig | Dispens | Refill | Sta | End | Stat | | | | ed | s | rt | | us | | | | | | Sam | Sam | | | | | | | e | e | | + + +---------+--------+-----+-----+------+ | aspirin 81 MG | Take 81 mg by | | 0 | | | Acti | | tablet | mouth daily. | | | | | ve | + + +---------+--------+-----+-----+------+ | Multiple | Take 1 tablet by | | 0 | | | Acti | | Vitamins-Mineral | mouth daily | | | | | ve | | s (MULTIVITAMIN | | | | | | | | ADULT PO) | | | | | | | + + +---------+--------+-----+-----+------+ | vitamin B-12 | Take 500 mg by | | 0 | | | Acti | | (CYANOCOBALAMIN) | mouth daily | | | | | ve | | 500 MCG tablet | | | | | | | + + +---------+--------+-----+-----+------+ | ferrous | Take 325 mg by | | 0 | | | Acti | | sulfate 325 (65 | mouth daily with | | | | | ve | | FE) MG tablet | breakfast. | | | | | | + + +---------+--------+-----+-----+------+ | acetaminophen | Take 325 mg by | | 0 | | | Acti | | (TYLENOL) 325 MG | mouth every 6 | | | | | ve | | tablet | (six) hours as | | | | | | | | needed for mild | | | | | | | | pain (1-3). | | | | | | + + +---------+--------+-----+-----+------+ | | Take 1,000 Units | | 0 | | | Acti | | cholecalciferol | by mouth daily. | | | | | ve | | (VITAMIN D3) | | | | | | | | 1000 units | | | | | | | | tablet | | | | | | | + + +---------+--------+-----+-----+------+ | albuterol | Inhale 2 puffs | 18 g | 1 | 04/ | | Acti | | (PROVENTIL | every 6 (six) | | | 02/ | | ve | | HFA;VENTOLIN | hours as needed | | | 201 | | | | HFA;PROAIR HFA) | for wheezing. | | | 9 | | | | 108 (90 Base) | | | | | | | | MCG/ACT inhaler | | | | | | | + + +---------+--------+-----+-----+------+ | ranolazine | Take 1 tablet | 180 | 3 | 07/ | | Acti | | (Ranexa) 1000 MG | (1,000 mg total) | tablet | | 28/ | | ve | | SR tablet | by mouth 2 | | | 202 | | | | | (two) times a | | | 0 | | | | | day 1 tablet | | | | | | | | twice a day | | | | | | + + +---------+--------+-----+-----+------+ | nitroglycerin | Place 1 tablet | 25 | 6 | 10/ | | Acti | | (NITROSTAT) 0.4 | (0.4 mg total) | tablet | | 21/ | | ve | | MG SL tablet | under the tongue | | | 202 | | | | | every 5 (five) | | | 0 | | | | | minutes as | | | | | | | | needed (as | | | | | | | | needed) | | | | | | + + +---------+--------+-----+-----+------+ | | Take 1 tablet | 90 | 3 | 10/ | | Acti | | hydroCHLOROthiaz | (25 mg total) by | tablet | | 27/ | | ve | | reynold | mouth daily | | | 202 | | | | (HYDRODIURIL) 25 | | | | 0 | | | | MG tablet | | | | | | | + + +---------+--------+-----+-----+------+ | apixaban | 1 tablet twice a | 180 | 1 | 01/ | | Acti | | (Eliquis) 5 | day | tablet | | 05/ | | ve | | MGIndications: | | | | 202 | | | | Coronary artery | | | | 1 | | | | disease of | | | | | | | | nikolai artery of | | | | | | | | nikolai heart | | | | | | | | with stable | | | | | | | | angina pectoris | | | | | | | | (CMS/HCC) | | | | | | | + + +---------+--------+-----+-----+------+ | sotalol | Take 1 tablet | 180 | 3 | 01/ | | Acti | | (Betapace) 80 MG | (80 mg total) by | tablet | | 20/ | | ve | | tablet | mouth 2 (two) | | | 202 | | | | | times a day 1 | | | 1 | | | | | tablet every 12 | | | | | | | | hours | | | | | | + + +---------+--------+-----+-----+------+ | isosorbide | Take 1 tablet | 90 | 3 | 03/ | 03/ | Acti | | mononitrate ER | (60 mg total) by | tablet | | 17/ | 17/ | ve | | (IMDUR) 60 MG 24 | mouth daily | | | 202 | 202 | | | hr tablet | | | | 1 | 2 | | + + +---------+--------+-----+-----+------+ +---+ + | | Additional | | | InformationPatie | | | nt taking | | | differently: 120 | | | mg Oral Daily, | | | Reported on | | | 09/25/2020 | +---+ + + + +--------+---+-----+-----+------+ | metFORMIN | Take 1 tablet | 180 | 2 | 04/ | | Acti | | (GLUCOPHAGE) 500 | (500 mg total) | tablet | | 07/ | | ve | | MG tablet | by mouth 2 (two) | | | 202 | | | | | times a day | | | 1 | | | | | with meals | | | | | | + + +--------+---+-----+-----+------+ | pantoprazole | Take 1 tablet | 180 | 1 | 04/ | | Acti | | (PROTONIX) 40 MG | (40 mg total) by | tablet | | 08/ | | ve | | tablet | mouth 2 (two) | | | 202 | | | | | times a day | | | 1 | | | + + +--------+---+-----+-----+------+ | atorvastatin | Take 1 tablet | 90 | 3 | 04/ | | Acti | | (LIPITOR) 20 MG | (20 mg total) by | tablet | | 08/ | | ve | | tablet | mouth daily | | | 202 | | | | | | | | 1 | | | + + +--------+---+-----+-----+------+ | furosemide | Take 1 tablet | 30 | 2 | 04/ | 04/ | Acti | | (Lasix) 20 MG | (20 mg total) by | tablet | | 09/ | 09/ | ve | | tabletIndication | mouth daily | | | 202 | 202 | | | s: Chronic | | | | 1 | 2 | | | systolic | | | | | | | | congestive heart | | | | | | | | failure | | | | | | | | (CMS/HCC), ST | | | | | | | | elevation | | | | | | | | myocardial | | | | | | | | infarction | | | | | | | | (STEMI), | | | | | | | | unspecified | | | | | | | | artery (CMS/HCC) | | | | | | | + + +--------+---+-----+-----+------+ | levothyroxine | Take 137 mcg by | 90 | 1 | 04/ | | Acti | | (SYNTHROID, | mouth daily | tablet | | 20/ | | ve | | LEVOTHROID) 137 | | | | 202 | | | | MCG tablet | | | | 1 | | | + + +--------+---+-----+-----+------+ | traMADol | Take 1 tablet | 120 | 3 | 05/ | | Acti | | (ULTRAM) 50 MG | (50 mg total) by | tablet | | 25/ | | ve | | tabletIndication | mouth every 4 | | | 202 | | | | s: Rheumatoid | (four) hours as | | | 1 | | | | arthritis | needed for | | | | | | | | moderate pain | | | | | | | | (4-6) | | | | | | + + +--------+---+-----+-----+------+ | losartan | Take 1 tablet | 90 | 1 | 06/ | 06/ | Acti | | (COZAAR) 50 MG | (50 mg total) by | tablet | | 09/ | 09/ | ve | | tabletIndication | mouth daily | | | 202 | 202 | | | s: Essential | | | | 1 | 2 | | | hypertension | | | | | | | + + +--------+---+-----+-----+------+ | donepezil | Take 1 tablet | 30 | 2 | 06/ | 06/ | Acti | | (Aricept) 10 MG | (10 mg total) by | tablet | | / / | ve | | tabletIndication | mouth nightly | | | | | | | s: Memory change | | | | 1 | 2 | | + + +--------+---+-----+-----+------+ documented as of this encounter (statuses as of 12/08/2020) Active Problems + + + | Problem | Noted Date | + + + | At high risk for falls | 11/25/2020 | + + + | ST elevation myocardial infarction (STEMI) | 09/25/2020 | + + + | Mixed hyperlipidemia | 03/04/2020 | + + + | Memory change | 12/10/2019 | + + + | Driving safety issue | 12/10/2019 | + + + | Obesity (BMI 30-39.9) | 11/01/2018 | + + + | Vitamin D deficiency | 04/05/2018 | + + + | 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, without long-term current use of | | | insulin | | + + + | Mild intermittent asthma without complication | 01/01/2018 | + + + | Gastroesophageal reflux disease without esophagitis | 01/01/2018 | + + + | Osteoarthritis of multiple joints | 01/01/2018 | + + + | S/P coronary artery stent placement | 01/01/2018 | + + + + + | Overview: Done in 2010 | + + + + + | Obstructive sleep apnea syndrome | 01/01/2018 | + + + | Paroxysmal atrial fibrillation | 10/13/2017 | + + + | History of MA (myocardial infarction) | 10/03/2017 | + + + | Hemispheric carotid artery syndrome | 10/03/2017 | + + + | CAD (coronary artery disease) | 10/03/2017 | + + + | Essential hypertension | 10/03/2017 | + + + | Chronic systolic congestive heart failure | 10/03/2017 | + + + | Acquired hypothyroidism | 10/03/2017 | + + + | Rheumatoid arthritis | 10/03/2017 | + + + documented as of this encounter (statuses as of 12/08/2020) Immunizations + + + + | Name | Administration Dates | Next Due | + + + + | Influenza (IM) | 04/05/2018 | | | Preservative | | | | Free | | | + + + + documented as of this encounter Social History + +-------+---------+--------+------+ | Tobacco Use | Types | Packs/D | Years | Date | | | | ay | Used | | + +-------+---------+--------+------+ | Former Smoker | | | | | + +-------+---------+--------+------+ + +---+---+---+ | Smokeless | | | | | Tobacco: Never | | | | | Used | | | | + +---+---+---+ + + +---------+ + | Alcohol Use | Drinks/Week | oz/Week | Comments | + + +---------+ + | No | | | | + + +---------+ + + + + + | Financial Resource Strain | Answer | Date | | | | Recorded | + + + + | How hard is it for you to pay for | Not hard at all | 11/25/2020 | | the very basics like food, | | | | housing, medical care, and | | | | heating? | | | + + + + + + + + | Food Insecurity | Answer | Date | | | | Recorded | + + + + | Within the past 12 months, you | Never true | 11/25/2020 | | worried that your food would run | | | | out before you got money to buy | | | | more. | | | + + + + | Within the past 12 months, the | Never true | 11/25/2020 | | food you bought just didn't last | | | | and you didn't have money to get | | | | more. | | | + + + + + +--------+ + | Transportation Needs | Answer | Date | | | | Recorded | + +--------+ + | In the past 12 months, has lack of | Yes | 11/25/2020 | | transportation kept you from | | | | medical appointments or from | | | | getting medications? | | | + +--------+ + | In the past 12 months, has lack of | No | 11/25/2020 | | transportation kept you from | | | | meetings, work, or getting things | | | | needed for daily living? | | | + +--------+ + + + + | Sex Assigned at | Date Recorded | | | | + + + | Not on file | | + + + documented as of this encounter Last Filed Vital Signs Not on filedocumented in this encounter Plan of Treatment +------+---------+ + + + | Date | Type | Specialty | Care Team | Description | +------+---------+ + + + | 07/0 | Office | Cardiology | Tushar, | | | 01/05 | Visit | | MD Vadim | | | [address] | | | [address] | | | | | | [place] | | | | | | [place], [place] | | | | | | [address] | | | | | | [phone] | | | | | | [phone] | | | | | | (Fax) | | +------+---------+ + + + | 02/18 | Office | Cardiology | Tushar, | | | 01/05 | Visit | | MD Vadim | | | [address] | | | [address] | | | | | | [place] [address] | | | | | | [place], [place] | | | | | | [address] | | | | | | [phone] | | | | | | [phone] | | | | | | (Fax) | | +------+---------+ + + + + +---------+--------+ + | Health | Due | Last | Comments | | Maintenance | Date | Done | | + +---------+--------+ + | COVID-19 VACCINE | | | | | | 965 | | | + +---------+--------+ + | Pneumococcal | | | | | Vaccine: 65+ | 012 | | | | years (1 of 1 - | | | | | PPSV23) | | | | + +---------+--------+ + | MAMMOGRAM | | 06/19/ | | | | 019 | 2017, | | | | | 11/07/ | | | | | 2016, | | | | | 10/10/ | | | | | 2016, | | | | | Additi | | | | | onal | | | | | histor | | | | | y | | | | | exists | | + +---------+--------+ + | OPHTHALMOLOGY | | 07/24/ | | | EXAM | 019 | 2017 | | + +---------+--------+ + | FOOT EXAM | | 11/01/ | | | | 020 | 2018, | | | | | 04/05/ | | | | | 2017, | | | | | 10/03/ | | | | | 2018 | | + +---------+--------+ + | INFLUENZA | | 04/05/ | | | VACCINE | 021 | 2017, | | | | | 04/05/ | | | | | 2017, | | | | | 03/19/ | | | | | 2016 | | + +---------+--------+ + | HEMOGLOBIN A1C | | 11/25/ | | | | 021 | 2020, | | | | | 12/09/ | | | | | 2019, | | | | | 11/01/ | | | | | 2018, | | | | | Additi | | | | | onal | | | | | histor | | | | | y | | | | | exists | | + +---------+--------+ + | URINE | | 11/25/ | | | MICROALBUMIN | 022 | 2020, | | | | | 12/09/ | | | | | 2019, | | | | | 11/01/ | | | | | 2018, | | | | | Additi | | | | | onal | | | | | histor | | | | | y | | | | | exists | | + +---------+--------+ + | COLONOSCOPY | | 11/29/ | | | | 026 | 2015, | | | | | 06/19/ | | | | | 2015 | | + +---------+--------+ + documented as of this encounter Results Not on filedocumented in this encounter Insurance + +------+ +------+-------+---------+------+ | Payer | Bene | Subscrib | Effe | Phone | Address | Type | | | fit | er ID | ctiv | | | | | | Plan | | e | | | | | | / | | Date | | | | | | Grou | | s | | | | | | p | | | | | | + +------+ +------+-------+---------+------+ | [employer] CHOICE | ESTEVAN | [id number] | 1/ | | | | | | NA | 3 | 2021 | | | | | | GOLD | | -Pre | | | | | | | | sent | | | | | | PLUS | | | | | | + +------+ +------+-------+---------+------+ documented as of this encounter"
--- NOTE | 2020-12-08 13:52 | NUR ---
Patient is being taken to laborer salvage by bed. IV fluids taken with her. will continue to monitor.
--- NOTE | 2020-12-08 14:58 | NUR ---
Patient back from thoracentesis and bilat dopplers in LE. Placed back on O2 6 L and will get IV fluids going.
--- NOTE | 2020-12-08 15:38 | CARD ---
[address] [address] CARDIAC CATH REPORT Name: MENA DELAROSA Room: [address] IN ..#: [id number] Admission: 12/06/20 Attend Phys: Anastasia Mann MD Discharge: Date of : 49 Report #: [id number] THIS REPORT FOR: cc: Aissatou Betts Tammy RNP Holkins, John M. MD [facility] ~ APPROVED REPORT Study performed: 12/08/2020 13:34:33 Patient Details The patient is a 75 year-old female Event Personnel Vadim Finley Summer Law Clerk, Analia Mills RN Core Sucker, Armando Camargo RTR Scrub, Joe Torres MD interventional cardiology Procedures Performed Left heart catheterization selective coronary arteriography and PCI with deployment of drug-eluting stent in the mid LAD Indication Unstable angina Risk Factors Hypercholesterolemia, Hypertension Procedure Narrative The patient was brought electively to the Cardiac Catheterization Laboratory and was prepped and draped in a sterile manner. The right femoral was infiltrated with 2% Lidocaine subcutaneous anesthesia. A 6Fr Ultimum Sheath sheath was inserted into the . Coronary angiography was performed using coronary diagnostic catheters. The right coronary system was accessed and visualized with a Diagnostic - JR4 catheter. The left coronary system was accessed and visualized with a Diagnostic - JL4 catheter. The left ventricle was accessed and visualized with a Diagnostic -Straight PIG catheter. Left ventricular/Aortic Valve gradient assessed via catheter pullback. Closure device was deployed with a 6 Fr Angioseal. There was no hematoma[place] [address] CARDIAC CATH REPORT Name: BerylSONIAMENACASA BOURNE Room: [address] [facility]#: [id number] Admission: 12/06/20 Attend Phys: Anastasia Mann MD Discharge: Date of : 49 Report #: [id number] Sedation start time: 1410 Case end Time: 1459 Fluoro Time: 18.9 minutes Dose: DAP 189126 cGycm2 3264 mGy Contrast Type and Amount: Visipaque 310 ml Coronary Angiography The patient's coronary anatomy is right dominant. Diagnostic Cath Left Main 0% narrowing LAD 75% tubular calcified mid LAD stenosis with 80% ostial second diagonal narrowing Circumflex 30% mid vessel narrowing Right Coronary Large dominant vessel with 40% proximal narrowing Left Ventriculography Left Ventriculography was not performed. Hemodynamics The aortic pressure is 129/68 mmHg with a mean of 93 mmHg. The left ventricular pressure is 120/8 mmHg with a mean of mmHg. The left ventricular end diastolic pressure is 25 mmHg. There was no gradient across the aortic valve upon pullback. PCI Technique Lesion Anticoagulation was achieved with Angiomax. Patient was preloaded with Angiomax IV 13 ml. Percutaneous coronary intervention was performed on the mid left anterior descending artery segment. The lesion stenosis prior to intervention was 75% with SALONI 3 flow. A 6Fr XBLAD 3.5 Guide Catheter was used to engage the ostium. A BMW 190 cm Interventional Guidewire was used to cross the lesion. BALLOON DILATION A Balloon catheter NC Trek 2.5 x 12 was inserted and inflated up to 12.00atm for 7seconds. Additional Inflation: 14.00atm for 7seconds. Additional Inflation: 14.00atm for 6seconds. 16 JOSEE for 11 sec 18 JOSEE for 8 sec 20 JOSEE for 7 sec STENT DEPLOYMENT A stent Cristobal RX Stent 2.5 x 22mm was inserted and inflated up to 12.00atm for 8seconds. Additional Inflation: 14.00atm for 9seconds. [place] [address] CARDIAC CATH REPORT Name: MENA DELAROSA Room: [address]#: [id number] Admission: 12/06/20 Attend Phys: Anastasia Mann MD Discharge: Date of : 49 Report #: [id number] Final angiography reveals 10 % stenosis with SALONI 3 flow. Conclusion 1. Significant coronary artery disease characterized by the following: A 75% tubular calcified mid LAD stenosis with 80% ostial second diagonal narrowing B 30% narrowing of the midportion of the nondominant circumflex C large dominant right coronary artery with 40% proximal narrowing 2. Moderately severe elevation of left ventricular end-diastolic pressure at rest 3. Successful PCI with deployment of drug-eluting stent at the site of 75% tubular calcified mid LAD stenosis with 10% residual narrowing and SALONI-3 flow to the distal vessel Recommendations Cardiac Risk Reduction Program Aggressive Medical Therapy Medications Administered Aspirin (any) Prasugrel Diagnostic Cath Approved by: Vadim Finley MD Date/Time: 12/08/2020 15:34:28 <ELECTRONICALLY SIGNED> By: Avila Taylor MD, [facility] 12/08/20 1537 1537 1537Avila Taylor MD, [facility] /INF
--- NOTE | 2020-12-08 15:45 | EKG ---
[place] [address] ELECTROCARDIOGRAM REPORT Name: MENA DELAROSA Room: [address] IN [facility]#: [id number] Admission: 12/06/20 Attend Phys: Anastasia Mann, Discharge: Date of : 49 Date of Service: 12/08/20 0904 Report #: [id number] THIS REPORT FOR: //name// [facility] Test Date: 2020-12-08 Test Time: 09:04:50 Pat Name: MENA DELAROSA Department: Room: [address] Gender: F Firer Automatic Stoker: PREETHI : 1945 Requested By: Anastasia Mann Order Number: [id number] Reading MD: Avila Taylor Measurements Intervals [place] Rate: 174 P: 0 [place]: QRS: 52 QRSD: 75 T: 228 QT: 238 QTc: 405 Interpretive Statements Atrial fibrillation with a rapid ventricular response Paired ventricular premature complexes Low voltage, precordial leads RSR' in V1 or V2, right VCD Repolarization abnormality, prob rate related Compared to ECG 12/08/2020 09:02:20 Ventricular premature complex(es) now present RSR' in V1 or V2 now present Atrial fibrillation persists Electronically Signed On 12-08-2020 15:45:25 CDT by Avila Taylor [email or web address] <ELECTRONICALLY SIGNED> By: Avila Taylor MD, [facility] 12/08/20 1545 0904 0904 Avila Taylor MD, [facility] /EPI
--- NOTE | 2020-12-08 15:54 | NUR ---
Patient back from physical laboratory assistant, placed back on O2 per NC at 2L. Patient is to lay flat until 1905. Will review orders, BP and HR to be taken per post-cath orders. Continue to monitor. visitor at bedside.
--- NOTE | 2020-12-08 19:40 | NUR ---
Report given to night shift supervisor nurse. Patient in room, in bed, with fluids running through PICC, call light and all belongings within reach. Post-cath vitals being input. Right groin dressing dry and intact.
[2020-12-09] VITALS (8 sets, daily range): BP systolic 115–146; BP diastolic 50–89
[2020-12-09 04:24] LABS: ABSOLUTE EOSINOPHILS 0.2 thou/uL (0.0-0.7); ABSOLUTE LYMPHOCYTES 2.4 thou/uL (0.8-5.3); ABSOLUTE MONOCYTES 0.8 thou/uL (0.0-1.2); ABSOLUTE NEUTROPHILS 4.5 thou/uL (1.6-8.1); BASOPHILS 0.5 %; EOSINOPHILS 1.9 %; HEMATOCRIT 26.8 % (37.0-47.0); HEMOGLOBIN 8.9 gm/dL (12.0-15.0); LYMPHOCYTES 30.2 %; MCH 26.5 pg (26.0-34.0); MCHC 33.2 g/dL (28.0-37.0); MPV 7.6 fl. (7.2-11.1); NUCLEATED RBCS 0 /100WBC; PLATELET COUNT* 287 thou/uL (150-400); POLYS 57.4 %; RBC 3.35 mil/uL (4.20-5.00); RDW-CV 18.4 % (10.5-14.5); WBC 7.8 thou/uL (4.0-11.0)
[2020-12-09 05:26] LABS: CALCIUM 8.2 mg/dL (8.5-10.1); CREATININE 0.6 mg/dL (0.6-1.3); POTASSIUM 3.6 mmol/L (3.5-5.1)
--- NOTE | 2020-12-09 05:54 | NUR ---
ASSUMED CARE OF PT AFTER REPORT AT 1930. PT A&OX4. FORGETFUL AT TIMES. VSS. PHYSICAL ASSESSMENT COMPLETED AND CHARTED. PT ON O2 AT 2LNC. PT TRACING PAROXYSMAL AFIB/SR/SB/PAC ON TELE. PT UP WITH 1 ASSIST. PT DENIES PAIN. NIH CHARTED. POST CATH SITE TO RIGHT GROIN-CLEAN, DRY & INTACT. NO BLEEDING NOTED. ON SPECIAL CONTACT PRECAUTION-PENDING CDIFF. FALL PRECAUTIONS IN PLACE. CALL LIGHT WITHIN REACH.
--- NOTE | 2020-12-09 10:22 | NUR ---
martha pt's sons, mariola and renaldo. pt currently lives home alone and has a walker, she "dont use."/mariola. mariola also indicated pt "gets a whole lot worse at night. confusion. everything...ing." renaldo is moving pt in with him to [facility], he will be to to move pt the weekend of 12/20/20. pt is current with interim [phone] per tonie for "increase falls d/t dizziness."
--- NOTE | 2020-12-09 13:56 | EKG ---
[place] [address] ELECTROCARDIOGRAM REPORT Name: MENA DELAROSA Room: [address] ADM IN ..#: [id number] Admission: 12/06/20 Attend Phys: Anastasia Mann, Discharge: Date of : 49 Date of Service: 12/09/20 0626 Report #: [id number] THIS REPORT FOR: //name// [facility] Test Date: 2020-12-09 Test Time: 06:26:43 Pat Name: MENA DELAROSA Department: Room: [address] Gender: F Healthcare Business Analyst: THOWARD3 : 1945 Requested By: Vadim Finley Order Number: [id number] Reading MD: Avila Taylor Measurements Intervals [place] Rate: 63 P: 34 [place]: 172 QRS: 44 QRSD: 102 T: 69 QT: 435 QTc: 446 Interpretive Statements Sinus rhythm Low voltage, precordial leads Abnormal R-wave progression, early transition Consider anterolateral infarct Compared to ECG 12/08/2020 09:04:50 Myocardial infarct finding now present Atrial fibrillation no longer present Ventricular premature complex(es) no longer present Electronically Signed On 12-09-2020 13:56:37 CDT by Avila Taylor [email or web address] <ELECTRONICALLY SIGNED> By: Avila Taylor MD, [facility] 12/09/20 1356 5 5 Avila Taylor MD, [facility] /EPI
--- NOTE | 2020-12-09 15:16 | NUR ---
REFERRAL PACKET FAXED TO [facility] ([phone]) [facility] ([phone]) AWAITING APPROVAL. CM TO CONTINUE TO FOLLOW FOR SAFE DC PLANNING.
[2020-12-09] MEDS ORDERED: EFFIENT10 MG PO (17:20)
[2020-12-09] MEDS ORDERED: K-DUR10 MEQ PO (17:26)
--- NOTE | 2020-12-09 18:30 | NUR ---
ASSUMED CARE OF PT AROUND 0730. AM ASSESSMENT AND VITALS COMPLETED CHARTED. CDIFF NEGATIVE. MEDS PER EMAR. CUSTOMER ADVOCACY MANAGER IN PLACE. MULTIPLE CONVERSATIONS WITH FAMILY REGARDING PLAN OF CARE. SON AT BEDSIDE THIS AFTERNOON. PLAN IS FOR PT TO DC TO SKILLED FACILITY FOR REHAB AND THEN GO TO LIVE WITH HER ELDEST SON. FALL PRECAUTIONS IN PLACE. CALL LIGHT WITHIN REACH. HOURLY ROUNDING PERFORMED.
--- NOTE | 2020-12-10 00:02 | NUR ---
ASSUMED CARE OF PT AFTER REPORT AT 1930. PT A&OX4. VSS. PHYSICAL ASSESSMENT COMPLETED AND CHARTED. PT ON RA. PT TRACING SR ON TELE. PT UP WITH 1 ASSIST TO BSC. PT COMPLAINED OF HEADACHE-MED GIVEN PER MAR. FALL PRECAUTIONS IN PLACE. CALL LIGHT WITHIN REACH.
[2020-12-10 07:55] LABS: HEMATOCRIT 25.6 % (37.0-47.0); HEMOGLOBIN 8.5 gm/dL (12.0-15.0); MCHC 33.3 g/dL (28.0-37.0); MCV 81.1 fL (80.0-100.0); MPV 7.7 fl. (7.2-11.1); RBC 3.16 mil/uL (4.20-5.00); WBC 7.4 thou/uL (4.0-11.0)
[2020-12-10] MEDS ORDERED: SORINE 80 MG TA80 M1 PO (08:35)
[2020-12-10 08:55] VITALS: BP 123/58
[2020-12-10 09:14] LABS: CALCIUM 8.4 mg/dL (8.5-10.1); CREATININE 0.6 mg/dL (0.6-1.3); POTASSIUM 3.4 mmol/L (3.5-5.1)
--- NOTE | 2020-12-10 10:15 | NUR ---
UPDATE FROM [email or web address] PT. AUTH UNDER REVIEW, PT. MEDICALLY APPROPRIATE FOR [employer], AWAITING APPROVAL. CM TO CONTINUE TO FOLLOW FOR SAFE D/C PLANNING.
[2020-12-10 12:00] VITALS: BP 131/71
--- NOTE | 2020-12-10 12:19 | NUR ---
Continue to await insurance auth for skilled at [facility].
--- NOTE | 2020-12-10 15:50 | NUR ---
UPDATE FROM [facility] SPOKE TO HILARIA SCREENER PERFUMER, STATED MEDICAL DIRECTIOR REQUESTED A PEER TO PEER, ([phone]) STATED PT. IS FUNCTIONING TO PRIOR LEVEL OF CARE.CALL NEED TO BE MADE BEFORE 11AM DECISION BASED OFF CURRENT CLINICALS. CM TO CONTINUE TO FOLLOW FOR SAFE D/C PLANNING.
[2020-12-10 16:07] VITALS: BP 144/82
[2020-12-10 20:00] VITALS: BP 135/68
--- NOTE | 2020-12-11 04:26 | NUR ---
PT TRANSFERRED FROM [facility] AT 1940. ON 2-3L BY [place]. MEDS GIVEN ORDERED. UP WITH ASSIST TO THE BSC. NO C/O PAIN. CALL LIGHT WITHIN REACH. NO OTHER CONCERNS AT THIS TIME. WILL CONTINUE TO MONITOR.
[2020-12-11 08:00] VITALS: BP 105/49
[2020-12-11 09:36] VITALS: BP 135/68
--- NOTE | 2020-12-11 10:34 | NUR ---
P2P completed today, insurance denied SNF. CM updated Pt, she is in agreement with discharging to home with HH, HH referral and orders faxed to [facility]. CM left VM for Pt's son, Preeti. Pt's son, Killian's, VM was full, CM updated Pt that Cm was unable to speak with either son. Pt stated that her grandson will likely provide dc transportation. No further needs.
[2020-12-11 12:57] VITALS: BP 135/68
--- NOTE | 2020-12-11 16:37 | NUR ---
pt dismissed home central line rmoved without difficulty. Home health to start on Monday. pt and daughter in law have good understanding of discharge instructions and medications. pt denied pain on dismissal.
--- NOTE | 2020-12-15 12:48 | EEG ---
[address] [address] EEG STUDY REPORT Name: MENA DELAROSA Room: [address] IN .#: [id number] Admission: 12/06/20 Attend Phys: Anastasia Mann MD Discharge: 12/11/20 Date of : 49 Report #: [id number] THIS REPORT FOR: cc: Aissatou Betts Tammy RNP Khosla, Parveen K. MD ~ DOC #: [id number] Otoniel Hodges MD DATE OF SERVICE: 12/08/2020 This patient is being evaluated for altered mental status. The EEG was done by placing the electrodes by standard 10-20 system of electrode placement. Both referential and sequential montages were used for recording. Background activity in this patient's EEG is about 9 Hz and 30 microvolts. The patient became drowsy and that is associated with bilateral slowing. Photic stimulation is unremarkable. Throughout the record, no active epileptiform activity was noticed. IMPRESSION: This patient's EEG is intermixed with some theta range slowing on both sides. There is a nonspecific finding, which can occur with encephalopathy, effect of psychotropic medication, dementia, etc. Clinical correlation is recommended. MD JARROD Young/ESA <ELECTRONICALLY SIGNED> By: Otoniel Hodges MD 12/15/20 1248 0652 0720Otoniel Hodges MD /nt
--- NOTE | 2020-12-15 12:48 | CON ---
[address] [address] CONSULTATION Name: MENA DELAROSAELYN Room: [address] IN M.R.#: [id number] Admission: 12/06/20 Attend Phys: Anastasia Mann MD Discharge: 12/11/20 Date of : 49 Report #: [id number] THIS REPORT FOR: cc: Aissatou Betts Tammy RNP Khosla, Parveen K. MD ~ DOC #: [id number] Otoniel Hodges MD DATE OF CONSULTATION: 12/07/2020 HISTORY OF PRESENT ILLNESS: This is a 75-year-old female patient who was evaluated by me for stroke. I talked to the nurses and reviewed the patient's records in the computer. The patient says that she just passed out. It looks like she was noticed to have some weakness on the right side. Apparently that weakness has resolved. She has been seen by multiple consultants when she is here and looks like she has atrial fibrillation and she is on chronic anticoagulations with Eliquis. REVIEW OF SYSTEMS: Indicates multiple other risk factors like dyslipidemia, hypertension, diabetes, elevated troponin and new wall abnormality. She had a prior hysterectomy and cholecystectomy. When this episode occurred, she had some nausea, vomiting and then she felt bad and she passed out. She was unable to get up at that time. Now, she can move all 4 extremities. A 14-point review of system was otherwise noncontributory. She has some baseline problem with eye, but does not complain of any ENT symptoms, musculoskeletal, constitutional, dermatological, hematological, psychiatric, throat, allergic symptoms. PAST MEDICAL HISTORY: According to her is negative for any stroke. FAMILY HISTORY: Positive for stroke, but in a later stage. SOCIAL HISTORY: She does not drink alcohol on a regular basis. PHYSICAL EXAMINATION: The patient's examination indicate she is alert, responsive, able to follow simple and complex command. Cranial nerve examinations positive for some visual disturbances in the baseline, but is otherwise unremarkable. She moves all 4 extremities. Her position sense is intact. She is too ticklish to do . Planter reflexes are diminished. Tone looks unremarkable. There is no cerebellar sign. I could not look at the patient's fundus. Cardiorespiratory examination appears noncontributory. There is no meningeal sign in this patient. Blood pressure is 136/72, respiration was high, pulse is 63. LABORATORY DATA: White count is 8.4. She did have a CT angio, which [place] [address] CONSULTATION Name: MENA DELAROSA Room: [address]#: [id number] Admission: 12/06/20 Attend Phys: Anastasia Mann MD Discharge: 12/11/20 Date of : 49 Report #: [id number] IMPRESSION: Somewhat unusual symptoms, which may be vasovagal attack. I will get an MRI just to make sure there was no posterior fossa lesion because she was not able to walk. If some lesion is found, she may need more than what she is on for anticoagulation, may be additional some antiplatelet therapy. We will see, and looks like a cardiac workup is also ongoing in this patient. I discussed all of it with the patient. Thank you very much for this referral. MD JARROD Young/NICOLE/SCOTT <ELECTRONICALLY SIGNED> By: Otoniel Hodges MD 12/15/20 1248 1810 0008Otoniel Hodges MD /nt
== END 2020-12-11 16:30 | disposition home health service (06) | DRG 853 ==
LOC: M.ERS 22:31 → M.ICU 12-06 02:36 → M.TBA-ER 12-06 02:36 → M.2W 12-06 02:36 → M.ICU 12-06 03:17 → M.2W 12-07 20:57 → M.ORTHSURG 12-10 19:40
PROVIDERS: Family Medicine; Internal Medicine; Personal Emergency Response Attendant; ADMIT Internal Medicine; ATTEND Internal Medicine
DX: A41.9 Sepsis, unspecified organism (principal); J96.01 Acute respiratory failure with hypoxia; I21.4 Non-ST elevation (NSTEMI) myocardial infarction; J69.0 Pneumonitis due to inhalation of food and vomit; I48.0 Paroxysmal atrial fibrillation; Z20.822 Contact with and (suspected) exposure to COVID-19; I10 Essential (primary) hypertension; I25.10 Atherosclerotic heart disease of native coronary artery without angina pectoris; J45.909 Unspecified asthma, uncomplicated; E11.9 Type 2 diabetes mellitus without complications; F41.9 Anxiety disorder, unspecified; H54.61 Unqualified visual loss, right eye, normal vision left eye; I95.9 Hypotension, unspecified; E78.5 Hyperlipidemia, unspecified; Z82.49 Family history of ischemic heart disease and other diseases of the circulatory system; Z95.5 Presence of coronary angioplasty implant and graft; Z90.710 Acquired absence of both cervix and uterus; Z88.8 Allergy status to other drugs, medicaments and biological substances; Z87.891 Personal history of nicotine dependence; Z98.49 Cataract extraction status, unspecified eye

== ENCOUNTER 2021-05-14 09:25 | Inpatient (IN) | payer OTHER ==
[~2021-05-14] VITALS: Ht 160 cm; Wt 80.9 kg
[~2021-05-14 09:25] MED LIST changes: +ARICEPT10 M1 PO; +COZAAR 25 MG TA25 M1 PO; +DONEPEZIL HCL 55 M1 PO; +EFFIENT10 MG PO; +K-DUR10 MEQ PO; +LEVO-T100 MCG PO; +RANOLAZINE ER1000 MG PO; +ZANTAC-360 (FAM10 MG PO
[2021-05-14 09:32] VITALS: BP 137/76
[2021-05-14 09:56] LABS: ABSOLUTE EOSINOPHILS 0.1 thou/uL (0.0-0.7); ABSOLUTE MONOCYTES 0.9 thou/uL (0.0-1.2); ABSOLUTE NEUTROPHILS 5.9 thou/uL (1.6-8.1); BASOPHILS 0.5 %; EOSINOPHILS 0.8 %; HEMOGLOBIN 9.6 gm/dL (12.0-15.0); LYMPHOCYTES 13.2 %; MCH 23.9 pg (26.0-34.0); MCHC 30.9 g/dL (28.0-37.0); MCV 77.4 fL (80.0-100.0); MONOCYTES 10.9 %; MPV 7.1 fl. (7.2-11.1); NUCLEATED RBCS 0 /100WBC; PLATELET COUNT* 382 thou/uL (150-400); POLYS 74.6 %; RBC 4.01 mil/uL (4.20-5.00); RDW-CV 20.3 % (10.5-14.5); WBC 7.9 thou/uL (4.0-11.0)
[2021-05-14 10:02] LABS: CALCIUM 8.5 mg/dL (8.5-10.1); CREATININE 0.7 mg/dL (0.6-1.3); POTASSIUM 4.1 mmol/L (3.5-5.1)
[2021-05-14 10:17] LABS: ALBUMIN 2.6 g/dL (3.4-5.0); MAGNESIUM 1.7 mg/dL (1.8-2.4); TOTAL BILIRUBIN 0.4 mg/dL (<0.1-1.0); TOTAL PROTEIN 6.2 g/dL (6.4-8.2)
--- NOTE | 2021-05-14 10:53 | EKG ---
[place] [address] ELECTROCARDIOGRAM REPORT Name: MENA DELAROSA Room: [facility]#: [id number] Admission: 05/14/21 Attend Phys: Discharge: Date of : 49 Date of Service: 05/14/219[address] Report #: [id number] THIS REPORT FOR: //name// [facility] ED Test Date: 2021-05-14 Test Time: 09:28:27 Pat Name: MENA DELAROSA Department: Room: Gender: Director Of Resource Development: JOSEPH : 1945 Requested By: Viet Ray Order Number: [id number] MD: Mo David Measurements Intervals [place] Rate: 124 P: FL: QRS: 12 QRSD: 83 T: 94 QT: 328 QTc: 471 Interpretive Statements Atrial flutter Borderline low voltage, extremity leads Repol abnrm suggests ischemia, diffuse leads Compared to ECG 12/09/2020 06:26:43 Sinus rhythm no longer present Electronically Signed On 05-14-2021 10:53:05 ELECTRICITY TRADER by Mo David [email or web address] <ELECTRONICALLY SIGNED> By: Mo David MD, FACC 05/14/21 1053 Mo David MD, [facility] /EPI
[2021-05-14 15:00] VITALS: BP 103/50
[2021-05-14 17:15] VITALS: BP 103/50
[2021-05-14 17:45] VITALS: BP 110/64
[2021-05-14 20:08] VITALS: BP 114/58
[2021-05-14 23:18] VITALS: BP 116/81
[2021-05-15 05:22] LABS: HEMOGLOBIN 9.8 gm/dL (12.0-15.0); MCH 24.2 pg (26.0-34.0); MCHC 31.6 g/dL (28.0-37.0); MCV 76.4 fL (80.0-100.0); MPV 7.6 fl. (7.2-11.1); RBC 4.06 mil/uL (4.20-5.00); RDW-CV 20.6 % (10.5-14.5); WBC 3.4 thou/uL (4.0-11.0)
[2021-05-15 05:57] LABS: CALCIUM 9.1 mg/dL (8.5-10.1); CREATININE 0.8 mg/dL (0.6-1.3); POTASSIUM 3.5 mmol/L (3.5-5.1)
[2021-05-15 08:48] VITALS: BP 114/59
[2021-05-15 12:40] VITALS: BP 108/62
[2021-05-15 18:12] VITALS: BP 110/66
[2021-05-15 20:00] VITALS: BP 128/63
[2021-05-16] VITALS: BP 107/52
[2021-05-16 04:00] VITALS: BP 107/54
[2021-05-16 04:53] LABS: HEMATOCRIT 26.6 % (37.0-47.0); HEMOGLOBIN 8.5 gm/dL (12.0-15.0)
[2021-05-16 06:26] LABS: CHOLESTEROL 100 mg/dL (<200); HDL CHOLESTEROL 58 mg/dL (>40); LDL CHOLESTEROL 32 mg/dL (<100); TC:HDL 1.7 Ratio (Not establshd); TRIGLYCERIDE 54 mg/dL (<150); VLDL 11 mg/dL (<40)
[2021-05-16 06:27] LABS: SERUM ASSESSMENT Clear
[2021-05-16 07:58] VITALS: BP 125/57
[2021-05-16 12:00] VITALS: BP 102/54
[2021-05-16 16:00] VITALS: BP 135/62
[2021-05-16 20:00] VITALS: BP 132/69
[2021-05-17 00:24] VITALS: BP 142/61
[2021-05-17 04:05] LABS: HEMATOCRIT 30.3 % (37.0-47.0); HEMOGLOBIN 9.7 gm/dL (12.0-15.0); MCH 24.1 pg (26.0-34.0); MCHC 31.9 g/dL (28.0-37.0); MCV 75.6 fL (80.0-100.0); MPV 7.5 fl. (7.2-11.1); RDW-CV 19.9 % (10.5-14.5); WBC 7.1 thou/uL (4.0-11.0)
[2021-05-17 04:46] LABS: CREATININE 0.9 mg/dL (0.6-1.3)
[2021-05-17 05:17] VITALS: BP 133/56
[2021-05-17 05:23] LABS: POTASSIUM 2.8 mmol/L (3.5-5.1)
[2021-05-17 08:00] VITALS: BP 137/79
[2021-05-17 12:00] VITALS: BP 125/59
[2021-05-17 16:00] VITALS: BP 139/62
--- NOTE | 2021-05-17 16:04 | EKG ---
[place] [address] ELECTROCARDIOGRAM REPORT Name: MENA DELAROSA Room: [address] ADM IN .R.#: [id number] Admission: 05/14/21 Attend Phys: Anastasia Mann, Discharge: Date of : 49 Date of Service: 05/17/21 0753 Report #: [id number] THIS REPORT FOR: //name// [facility] Test Date: 2021-05-17 Test Time: 07:53:31 Pat Name: MENA DELAROSA Department: Room: [address] Gender: F Agricultural Consultant: DAMARIS : 1945 Requested By: Mo David Order Number: [id number] Roberto MD: Avila Taylor Measurements Intervals [place] Rate: 50 P: 52 [place]: 149 QRS: 30 QRSD: 88 T: 69 QT: 487 QTc: 445 Interpretive Statements Sinus rhythm Atrial premature complexes in couplet Possible anteroseptal infarct, old Borderline ST depression, anterolateral leads Compared to ECG 05/14/2021 09:28:27 Atrial premature complex(es) now present Myocardial infarct finding now present ST (T wave) deviation now present Atrial flutter no longer present Early repolarization no longer present Possible ischemia no longer present Electronically Signed On 05-17-2021 16:04:44 MUSIC PROFESSOR by Avila Taylor [email or web address] <ELECTRONICALLY SIGNED> By: Avila Taylor MD, [facility] 05/17/21 1604 0753 0753 Avila Taylor MD, [facility] /EPI
--- NOTE | 2021-05-17 16:06 | EKG ---
[place] [address] ELECTROCARDIOGRAM REPORT Name: MENA DELAROSA Room: [address] ADM IN [facility].#: [id number] Admission: 05/14/21 Attend Phys: Anastasia Mann, Discharge: Date of : 49 Date of Service: 05/17/21 1219 Report #: [id number] THIS REPORT FOR: //name// [facility] Test Date: 2021-05-17 Test Time: 12:19:26 Pat Name: MENA DELAROSA Department: Room: [address] Gender: F Screen Operator: XANDER : 1945 Requested By: Iraj Alfred Order Number: [id number] Roberto MD: Avila Taylor Measurements Intervals [place] Rate: 56 P: 34 DC: 159 QRS: 43 QRSD: 128 T: 65 QT: 529 QTc: 511 Interpretive Statements Sinus bradycardia with brief pauses LAE, consider biatrial enlargement Nonspecific intraventricular conduction delay Borderline T abnormalities, lateral leads Compared to ECG 05/17/2021 07:53:31 Intraventricular conduction delay now present T-wave abnormality now present Sinus rate has decreased Atrial premature complex(es) no longer present Myocardial infarct finding no longer present ST (T wave) deviation no longer present Electronically Signed On 05-17-2021 16:06:26 ENGINEERING TECHNOLOGY INSTRUCTOR by Avila Taylor [email or web address] <ELECTRONICALLY SIGNED> By: Avila Taylor MD, [facility] 05/17/21 1606 1219 1219 Avila Taylor MD, [facility] /EPI
[2021-05-17 21:45] VITALS: BP 157/70
[2021-05-18] VITALS (8 sets, daily range): BP systolic 82–148; BP diastolic 52–82
--- NOTE | 2021-05-18 10:05 | EKG ---
[place] [address] ELECTROCARDIOGRAM REPORT Name: MENA DELAROSA Room: [address] ADM IN .R.#: [id number] Admission: 05/14/21 Attend Phys: Anastasia Mann, Discharge: Date of : 49 Date of Service: 05/18/21 0944 Report #: [id number] THIS REPORT FOR: //name// [facility] Test Date: 2021-05-18 Test Time: 09:44:19 Pat Name: MENA DELAROSA Department: Room: [address] Gender: F Frame Expander: GILBERTO : 1945 Requested By: Irja Alfred Order Number: [id number] Reading MD: Avila Taylor Measurements Intervals [place] Rate: 48 P: 69 [place]: 149 QRS: 43 QRSD: 88 T: 68 QT: 483 QTc: 432 Interpretive Statements Sinus bradycardia Ventricular premature complex Abnormal R-wave progression, early transition Subtle inferior and anterolateral ST segment depression; ischemia or injury must be considered Since prior tracing, the heart rate has decreased and subtle inferolateral ST-T changes are noted Electronically Signed On 05-18-2021 10:05:18 NEGOTIATOR by Avila Taylor [email or web address] <ELECTRONICALLY SIGNED> By: Avila Taylor MD, [facility] 05/18/21 1005 3 3 Avila Taylor MD, [facility] /EPI
[2021-05-18] MEDS ORDERED: DOXYCYCLINE 10100 MG PO (11:00)
[2021-05-19 00:16] VITALS: BP 137/81
[2021-05-19 05:06] VITALS: BP 135/82
[2021-05-19 07:25] VITALS: BP 143/77
--- NOTE | 2021-05-19 09:07 | CON ---
[address] [address] CONSULTATION Name: MENA DELAROSAELYN Room: [address] IN M.Oneal.#: [id number] Admission: 05/14/21 Attend Phys: Anastasia Mann MD Discharge: Date of : 49 Report #: [id number] THIS REPORT FOR: cc: Aissatou Betts Tammy RNP Blick, David R. MD LOCATED WITHIN [facility] ~ DATE OF CONSULTATION: 05/14/2021 CARDIOLOGY CONSULTATION HISTORY OF PRESENT ILLNESS: The patient is a 76-year-old single white female who came to the Emergency Room complaining of palpitations. The patient has an extensive and complicated past medical history. She previously lived in [place] and recently moved to the [facility] to live near family members. She has been hospitalized here at [facility]. She is actually admitted here in August of this year with a non-STEMI. She underwent a cardiac catheterization, but no stents were placed. She had a history of atrial fibrillation and was on sotalol and Eliquis. She was last admitted here in November of this year with a non-STEMI. She had an episode of atrial fibrillation. She underwent a heart catheterization with placement of a drug-eluting stent in the mid LAD. She was discharged to longterm facility. She denies recent chest pain. She uses a walker to ambulate. She does get short of breath with exertion. She has had no recent chest pain or bleeding. Today, she felt her heart beating fast. She called the ambulance and brought here to [facility] and admitted. Cardiology consultation requested. PAST MEDICAL HISTORY: She had hysterectomy, cholecystectomy, cataract extraction, hypertension, diabetes, coronary artery disease, atrial fibrillation. CURRENT MEDICATIONS: Consist of a whole bag of pills that includes metformin, Lipitor, potassium, Eliquis, Ranexa, tramadol. She uses an inhaler. Losartan. ALLERGIES: SHE HAS A PREVIOUS INTOLERANCE TO OTHER BLOOD PRESSURE MEDICATIONS. FAMILY HISTORY: Father of a heart attack. SOCIAL HISTORY: She is . Smokes half pack of cigarettes a day. No alcohol abuse. REVIEW OF SYSTEMS: No history of a stroke. She has COPD. No liver disease, no kidney disease, no cancer, no psychiatric illness. no chronic skin condition. PHYSICAL EXAMINATION: GENERAL: Revealed an elderly female lying in bed. [place] [address] CONSULTATION Name: MENA DELAROSA Room: [address] IN [facility]#: [id number] Admission: 05/14/21 Attend Phys: Anastasia Mann MD Discharge: Date of : 49 Report #: [id number] VITAL SIGNS: Blood pressure is 130/70, pulse is 100. She was afebrile. HEENT: She was anicteric. Conjunctivae pink. Mucous membranes moist. NECK: Neck veins do not appear distended. No carotid bruits. CHEST: Clear to auscultation. HEART: Regular rate and rhythm. ABDOMEN: Soft. EXTREMITIES: Had no pitting edema. SKIN: Cool and dry. Her ECG on admission showed what appeared to represent atrial flutter with controlled ventricular response rate, nonspecific ST and T-wave changes. Her x-ray in the Emergency Room today showed interstitial infiltrates, mild cardiomegaly. She actually had a recent MRI of the head performed without contrast that showed no acute abnormality; atrophy and small vessel changes were noted. The patient had an echocardiogram done in November of this year here at [facility] that showed ejection fraction 55%, aortic sclerosis, mild aortic insufficiency, mild mitral regurgitation, moderate tricuspid insufficiency, moderate pulmonary hypertension. The patient's last heart catheterization was performed here at [facility] in November of this year by Dr. Taylor from the right femoral artery, results showed ____ narrowing of the mid LAD, no significant disease in the circumflex or in right coronary artery. No ventriculogram was performed. He then placed a drug-eluting stent in the mid LAD, and she was loaded with Effient. Her lab work; creatinine 0.7. High sensitivity troponin 622. Her hemoglobin was only 9.6, it was 9.5 in November. Her COVID antigen stat test was negative. IMPRESSION AND RECOMMENDATIONS: 1. Atrial flutter. The patient has been on sotalol in the past. If she fails to convert I would consider repeat cardioversion. I would continue chronic anticoagulation with Eliquis. 2. Coronary artery disease. Stent in November. I would consider antiplatelet therapy. I would not recommend repeat cardiac catheterization at this time. 3. Hypertension. The patient is on an ARB. 4. Diabetes. 5. Hyperlipidemia. The patient is on statin drug. 6. Tobacco abuse. 7. Chronic obstructive pulmonary disease. The patient uses an inhaler. <ELECTRONICALLY SIGNED> By: oM David MD, FACC 05/19/21 0907 1057 [id number] David MD, FACC /nt
[2021-05-19 11:38] VITALS: BP 108/61
[2021-05-19 13:24] VITALS: BP 119/66
[2021-05-19 13:51] VITALS: BP 119/66
[2021-05-19] MEDS ORDERED: SOTALOL160 MG PO (17:03)
--- NOTE | 2021-05-20 18:22 | CARD ---
[address] [address] CARDIAC CATH REPORT Name: MENA DELAROSA Room: [address] IN [facility]#: [id number] Admission: 05/14/21 Attend Phys: Anastasia Mann MD Discharge: 05/19/21 Date of : 49 Report #: [id number] THIS REPORT FOR: cc: Aissatou Betts Tammy RNP Liston, Michael J. MD [facility] ~ APPROVED REPORT Study performed: 05/18/2021 17:56:07 Patient Status: In-Patient Room #: 224 Event Personnel: Armando Yen RTR, Adina Sharma RTR, Jacki Peralta RN Exam: Insertion of Dual Chamber Permanent Pacemaker Conscious Sedation Start time: 1813 End Time: 1849 Fentanyl 50.0 mcg Versed 2.0 mg Implanted Devices: Elva Gimenez, Ser# [id number] V-Lead, 5076-52cm, Ser# [id number] A-Lead, 5076-45cm, Ser# [id number] Procedure The patient underwent informed consent. We discussed the details of the procedure including the risks, which include, but not limited to bleeding, infection, vascular damage, cardiac perforation, and pneumothorax. She understood these risks and was willing to proceed. As such, she was brought to the EP/Cardiac Catheterization laboratory in a fasting and sedated state and prepped and draped in a sterile fashion, received IV antibiotics prior to initiation of the procedure and a venogram was performed showing patency of the left axillary vein. The patient underwent conscious sedation, with no related complications. The patient was brought to the EP/Cardiac Catheterization laboratory and the left chest and shoulder were prepped and draped in a sterile manner. During this case, Fluoroscopy and visipaque 20cc were used for imaging. IV conscious sedation was used throughout procedure with appropriate monitoring and was performed in the presence of a registered nurse who was an independent trained observer other than the physician [place] [address] CARDIAC CATH REPORT Name: MENA DELAROSA Room: [address]#: [id number] Admission: 05/14/21 Attend Phys: Anastasia Mann MD Discharge: 05/19/21 Date of : 47 Report #: [id number] The left subclavian region was infiltrated with 2% Lidocaine subcutaneous anesthesia. A transverse incision was made in the left upper chest cavity. The subcutaneous pocket was formed via blunt dissection. Percutaneous venous access was achieved and an introducer sheath was inserted into the left Subclavian vein. Sheaths were positions using the modified Seldinger technique Through the introducer sheaths the atrial and ventricular lead wires were positioned in the right atrial appendage and right ventricular apex respectively. Utilizing fluoroscopic guidance, the atrial and ventricular lead wires were advanced over the wires and positioned in the right atria and right ventricle respectively. Capturing and sensing thresholds were verified. The ventricular lead was interrogated and Electrode Parameters P Wave: 2.3 mV R Wave: 8.4 mV Atrial Threshold: 1.8 V at 0.40 ms Ventricular Threshold: 0.7 V at 0.40 ms Atrial Resistance: 627 ohms Ventricular Resistance: 969 ohms Dual Chamber The atrial and ventricular leads were then secured using 0 silk sutures. The subcutaneous pocket was irrigated with ancef antibiotic solution.The atrial and ventricular leads were attached to the appropriate receptacles on the pulse generator and set screws firmly tightened to insure adequate contact and stability. The lead and pulse generator were placed into the subcutaneous pocket. Sharp and sponge counts were confirmed to be correct. At this time the pocket was closed subcutaneously with a 2.0 Vicryl and the skin was closed with a 4.0 Vicryl. The operative site was dressed in sterile fashion with steri strips and the patient was transferred to the floor in stable condition. Complications The patient tolerated the procedure well and there were no complications associated with the procedure. Conclusion 1. Sick sinus syndrome with paroxysmal atrial fibrillation/flutter. 2. Successful placement of a dual-chamber pacemaker [place] [address] CARDIAC CATH REPORT Name: MENA DELAROSA Room: [address]#: [id number] Admission: 05/14/21 Attend Phys: Anastasia Mann MD Discharge: 05/19/21 Date of : 49 Report #: [id number] ventricular lead placement. Recommendations 1. Follow-up site check in 1 week. 2. Follow-up device interrogation in 4 to 6 weeks. <ELECTRONICALLY SIGNED> By: Vadim Finley MD, FACC 05/20/211821 21 21Micdora Finley MD, FACC /INF
== END 2021-05-19 17:40 | DRG 242 ==
LOC: M.ERS 09:25 → M.TBA-ER 10:59 → M.2W 10:59
PROVIDERS: Family Medicine; Internal Medicine; Internal Medicine Cardiovascular Disease; ADMIT Internal Medicine; ATTEND Internal Medicine
DX: I49.5 Sick sinus syndrome (principal); J15.6 Pneumonia due to other Gram-negative bacteria; I21.A1 Myocardial infarction type 2; J96.01 Acute respiratory failure with hypoxia; I48.92 Unspecified atrial flutter; Z20.822 Contact with and (suspected) exposure to COVID-19; I25.10 Atherosclerotic heart disease of native coronary artery without angina pectoris; J45.909 Unspecified asthma, uncomplicated; E11.9 Type 2 diabetes mellitus without complications; F41.9 Anxiety disorder, unspecified; H54.61 Unqualified visual loss, right eye, normal vision left eye; I48.0 Paroxysmal atrial fibrillation; E78.5 Hyperlipidemia, unspecified; J44.9 Chronic obstructive pulmonary disease, unspecified; G47.33 Obstructive sleep apnea (adult) (pediatric); I50.9 Heart failure, unspecified; D64.9 Anemia, unspecified; E87.6 Hypokalemia; Z71.6 Tobacco abuse counseling; Z95.5 Presence of coronary angioplasty implant and graft; Z90.710 Acquired absence of both cervix and uterus; Z88.8 Allergy status to other drugs, medicaments and biological substances; Z87.891 Personal history of nicotine dependence; Z90.49 Acquired absence of other specified parts of digestive tract; Z82.49 Family history of ischemic heart disease and other diseases of the circulatory system; Z98.49 Cataract extraction status, unspecified eye; I25.2 Old myocardial infarction; Z79.899 Other long term (current) drug therapy; I11.0 Hypertensive heart disease with heart failure

== ENCOUNTER 2021-05-19 22:17 | Inpatient (IN) | payer OTHER ==
[~2021-05-19] VITALS: Ht 160 cm; Wt 68.0 kg
[~2021-05-19 22:17] MED LIST changes: +DOXYCYCLINE 10100 MG PO; +SOTALOL160 MG PO
[2021-05-19 22:51] VITALS: BP 124/67
[2021-05-20 00:27] LABS: ABSOLUTE LYMPHOCYTES 0.6 thou/uL (0.8-5.3); ABSOLUTE MONOCYTES 0.7 thou/uL (0.0-1.2); BASOPHILS 0.1 %; HEMATOCRIT 34.4 % (37.0-47.0); HEMOGLOBIN 10.8 gm/dL (12.0-15.0); WBC 9.3 thou/uL (4.0-11.0)
[2021-05-20 00:29] LABS: LYMPHOCYTES 6.2 %; MCH 23.9 pg (26.0-34.0); MCHC 31.5 g/dL (28.0-37.0); MCV 76.1 fL (80.0-100.0); MONOCYTES 7.9 %; NUCLEATED RBCS 0 /100WBC; PLATELET COUNT* 390 thou/uL (150-400); POLYS 85.8 %; RBC 4.52 mil/uL (4.20-5.00); RDW-CV 19.6 % (10.5-14.5)
[2021-05-20 00:32] LABS: CALCIUM 8.8 mg/dL (8.5-10.1); POTASSIUM 3.2 mmol/L (3.5-5.1)
[2021-05-20 00:43] LABS: ALBUMIN 2.5 g/dL (3.4-5.0); TOTAL BILIRUBIN 0.4 mg/dL (<0.1-1.0); TOTAL PROTEIN 5.9 g/dL (6.4-8.2)
[2021-05-20 00:46] LABS: APTT 24.4 Seconds (25.0-31.3); INR 1.1; PROTIME 11.5 Seconds (9.20-11.50)
[2021-05-20 04:40] LABS: BE -0.9 mmol/L (-2 to +3); PCO2 35.9 mmHg (35.0-45.0); PO2 90.1 mmHg (75.0-100.0); pH 7.427 (7.340-7.450)
[2021-05-20 08:06] VITALS: BP 119/73
--- NOTE | 2021-05-20 11:08 | EKG ---
[place] [address] ELECTROCARDIOGRAM REPORT Name: MENA DELAROSA Room: [place] [address] ADM IN [facility].#: [id number] Admission: 05/20/21 Attend Phys: Abdias Harrington Discharge: Date of : 49 Date of Service: 05/19/21 2300 Report #: [id number] THIS REPORT FOR: //name// [facility] ED Test Date: 2021-05-19 Test Time: 23:00:01 Pat Name: MENA DELAROSA Department: Room: [facility] Gender: F Veneer Jointer Returner: ANASTASIA : 1945 Requested By: Adele Stanley Order Number: [id number] MD: Avila Taylor Measurements Intervals [place] Rate: 95 P: 35 [place]: 131 QRS: 37 QRSD: 85 T: 57 QT: 429 QTc: 540 Interpretive Statements Sinus rhythm Atrial couplet with a rare PVC Possible inferior scar of indeterminate age Low voltage QRS complexes Nonspecific ST and T abnormality Since the prior tracing, PACs are noted Electronically Signed On 05-20-2021 11:08:11 PLASTIC SURGERY MANAGER by Avila Taylor [email or web address] <ELECTRONICALLY SIGNED> By: Avila Taylor MD, FACC 05/20/21 1108 99 99 Avila Taylor MD, FACC /EPI
--- NOTE | 2021-05-20 11:09 | EKG ---
[place] [address] ELECTROCARDIOGRAM REPORT Name: MENA DELAROSA Room: [place] [address] ADM IN .R.#: [id number] Admission: 05/20/21 Attend Phys: Abdias Harrington Discharge: Date of : 49 Date of Service: 05/19/21 2314 Report #: [id number] THIS REPORT FOR: //name// [facility] ED Test Date: 2021-05-19 Test Time: 23:14:53 Pat Name: MENA DELAROSA Department: Room: [place] [address] Gender: F Flavorings Compounder: DC : 1945 Requested By: Adele Stanley Order Number: [id number] MD: Avila Taylor Measurements Intervals [place] Rate: 83 P: [place]: 127 QRS: 28 QRSD: 96 T: 55 QT: 443 QTc: 521 Interpretive Statements Atrial-paced complexes Occasional PVCs Inferior scar cannot be exclude Compared to ECG 05/19/2021 23:00:01 Atrial pacing is noted ST (T wave) deviation no longer present Myocardial infarct finding still present Electronically Signed On 05-20-2021 11:09:39 TAXICAB COORDINATOR by Avila Taylor [email or web address] <ELECTRONICALLY SIGNED> By: Avila Taylor MD, [facility] 05/20/21 1109 2314 2314 Avila Taylor MD, [facility] /EPI
--- NOTE | 2021-05-20 11:11 | EKG ---
[place] [address] ELECTROCARDIOGRAM REPORT Name: MENA DELAROSA Room: [place] [address] ADM IN [facility].#: [id number] Admission: 05/20/21 Attend Phys: Abdias Harrington Discharge: Date of : 49 Date of Service: 05/20/21 0034 Report #: [id number] THIS REPORT FOR: //name// [facility] ED Test Date: 2021-05-20 Test Time: 00:34:09 Pat Name: MENA DELAROSA Department: Room: [facility] Gender: F Automation And Controls Manager: FRANK : 1945 Requested By: Adele Stanley Order Number: [id number] MD: Avila Taylor Measurements Intervals [place] Rate: 79 P: 109 MD: 164 QRS: 15 QRSD: 83 T: 49 QT: 424 QTc: 487 Interpretive Statements Atrial paced rhythm with rare PVCs Inferior scar cannot be excluded Compared to ECG 05/19/2021 23:14:53 Since the prior tracing, no significant interval change is noted Electronically Signed On 05-20-2021 11:11:04 PRODUCTION LINE WORKER by Avila Taylor [email or web address] <ELECTRONICALLY SIGNED> By: Avila Taylor MD, FACC 05/20/21 1111 003 0034 Avila Taylor MD, FACC /EPI
[2021-05-20 12:00] VITALS: BP 119/70; BP 119/73
--- NOTE | 2021-05-20 15:19 | CON ---
[address] [address] CONSULTATION Name: MENA DELAROSA Room: [address] IN .R.#: [id number] Admission: 05/20/21 Attend Phys: Tanesha Tapia Discharge: Date of : 49 Report #: [id number] THIS REPORT FOR: cc: Aissatou Betts Tammy RNP Liston, Michael J. MD [facility] ~ cc: MYLES Curran DATE OF CONSULTATION: 05/20/2021 CARDIOLOGY CONSULTATION INDICATION: Deconditioning, congestive heart failure and atrial fibrillation with rapid ventricular response rate. HISTORY OF PRESENT ILLNESS: The patient is a 76-year-old white female who is well known to myself. She was recently hospitalized with atrial flutter/fibrillation with rapid ventricular response rate and evidence of sick sinus syndrome after being placed on antiarrhythmic therapy. A dual chamber pacemaker was placed uneventfully. The patient also had elevated troponins consistent with non-ST elevation myocardial infarction and was placed on antiplatelet therapy for this. The patient was discharged yesterday. Plans were for [facility]p; however, the patient ended up at home. She was unable to care for herself at home and returns with evidence of acute on chronic diastolic heart failure, atrial fibrillation with rapid ventricular response rate. She is not having chest pain. High sensitivity troponin from today was minimally elevated at 630. Recent echocardiogram shows preserved LV systolic function. NT-proBNP yesterday was moderately elevated. Chest x-ray shows mild basilar atelectasis or scarring and elevated right hemidiaphragm and evidence of COPD. PAST MEDICAL HISTORY: 1. Coronary artery disease with previous percutaneous coronary intervention. 2. Atrial arrhythmias including atrial flutter and fibrillation. 3. Chronic anticoagulation. 4. Hyperlipidemia. 5. Hypertension. 6. Type 2 diabetes mellitus. 7. History of cataract extraction. ALLERGIES: FENTANYL, LISINOPRIL AND ENALAPRIL. HOME MEDICATIONS: Eliquis 5 mg p.o. b.i.d., atorvastatin 20 mg at bedtime, donepezil 5 mg daily, doxycycline 100 mg b.i.d., furosemide 20 mg daily, levothyroxine 137 mcg daily, losartan 100 mg daily, metformin 500 mg b.i.d., [place] [address] CONSULTATION Name: MENA DELAROSA Room: [address] IN [facility].#: [id number] Admission: 05/20/21 Attend Phys: Tanesha Tapia Discharge: Date of : 49 Report #: [id number] Nitrostat sublingual p.r.n., Protonix 40 mg b.i.d., potassium chloride 10 mEq daily, Effient 10 mg daily, ranolazine 1000 mg b.i.d., sotalol 160 mg b.i.d., tramadol 50 mg every 6-8 hours p.r.n. FAMILY HISTORY: Positive for coronary artery disease. SOCIAL HISTORY: The patient is . She smokes half a pack of cigarettes daily. She denies use of alcohol. REVIEW OF SYSTEMS: A 14-point review of systems positive for dizziness, shortness of breath, dyspnea on exertion, mild orthopnea and joint pain, otherwise unremarkable. PHYSICAL EXAMINATION: VITAL SIGNS: Blood pressure 119/73, pulse is in the 80s-90s and irregular. GENERAL: This is a pleasant lady in no distress. Mood and affect appropriate. HEENT: Head is normocephalic, atraumatic. Extraocular muscles intact. Mucous membranes moist. NECK: Shows no jugular venous distention. I do not appreciate bruit. CHEST: Reveals diminished breath sounds without wheezes or rales. CARDIAC: Reveals an irregularly irregular rhythm that is rate controlled. I do not appreciate obvious gallop or murmur. ABDOMEN: Reveals normal bowel sounds. The abdomen is soft, nontender. EXTREMITIES: Shows no significant edema. SKIN: Dry. DIAGNOSTIC DATA: A 12-lead EKG shows atrial fibrillation without acute ST wave abnormality. Chest x-ray shows no evidence of obvious vascular venous congestion. She has elevated right hemidiaphragm, which appears to be chronic and some mild atelectasis. LABORATORY DATA: Reviewed. Sodium 140, potassium 3.2, chloride 104, bicarb 25, BUN 23, creatinine 1.0, serum glucose 110. LFTs are within normal limits. High sensitivity troponin 630. White blood cell count 9.3, hemoglobin 10.8, platelet count 390,000. IMPRESSION AND RECOMMENDATIONS: 1. Acute on chronic diastolic heart failure. We will give IV Lasix and continue home regimen. 2. Hypokalemia. Replace potassium. 3. Atrial fibrillation with rapid ventricular response rate. Switching from sotalol to amiodarone [place] [address] CONSULTATION Name: MENA DELAROSA Room: [address] IN .R.#: [id number] Admission: 05/20/21 Attend Phys: Tanesha Tapia Discharge: Date of : 49 Report #: [id number] 4. Coronary artery disease. Presently stable. She is not having any symptoms to suggest acute coronary syndrome. 5. Hypertension. Blood pressure adequately controlled at present. 6. Hyperlipidemia. Continue statin agent at current dose. <ELECTRONICALLY SIGNED> By: Vadim Finley MD, FACC 05/20/21 1519 1033 1210[facility] Finley MD, FACC /nt
[2021-05-20 16:00] VITALS: BP 101/62
[2021-05-20 16:56] LABS: HEMATOCRIT 39.6 % (37.0-47.0); HEMOGLOBIN 12.4 gm/dL (12.0-15.0)
[2021-05-20 20:00] VITALS: BP 122/73; BP 97/42
[2021-05-21 01:51] VITALS: BP 114/69
[2021-05-21 06:35] VITALS: BP 128/74
[2021-05-21 06:43] LABS: ABSOLUTE LYMPHOCYTES 2.1 thou/uL (0.8-5.3); ABSOLUTE MONOCYTES 1.3 thou/uL (0.0-1.2); ABSOLUTE NEUTROPHILS 8.9 thou/uL (1.6-8.1); BASOPHILS 0.2 %; EOSINOPHILS 0.3 %; HEMOGLOBIN 11.4 gm/dL (12.0-15.0); LYMPHOCYTES 16.9 %; MCH 23.8 pg (26.0-34.0); MCHC 31.7 g/dL (28.0-37.0); MONOCYTES 10.4 %; MPV 7.6 fl. (7.2-11.1); NUCLEATED RBCS 0 /100WBC; PLATELET COUNT* 333 thou/uL (150-400); POLYS 72.2 %; RDW-CV 19.9 % (10.5-14.5); WBC 12.3 thou/uL (4.0-11.0)
[2021-05-21 07:00] LABS: CALCIUM 8.4 mg/dL (8.5-10.1); CREATININE 0.7 mg/dL (0.6-1.3)
[2021-05-21 07:03] LABS: POTASSIUM 2.9 mmol/L (3.5-5.1)
[2021-05-21 08:00] VITALS: BP 101/68
[2021-05-21 12:00] VITALS: BP 109/53
[2021-05-21 16:00] VITALS: BP 109/68
[2021-05-21 20:00] VITALS: BP 117/62
[2021-05-22] VITALS: BP 125/68
[2021-05-22 04:00] VITALS: BP 138/73
[2021-05-22 08:00] VITALS: BP 121/67
[2021-05-22 12:00] VITALS: BP 103/62
[2021-05-22 16:00] VITALS: BP 96/60
[2021-05-22 19:39] VITALS: BP 112/50
[2021-05-23] VITALS: BP 108/56
[2021-05-23 04:00] VITALS: BP 128/84
[2021-05-23 08:00] VITALS: BP 99/49
[2021-05-23 12:00] VITALS: BP 111/77
[2021-05-23 16:00] VITALS: BP 98/65
[2021-05-23 20:00] VITALS: BP 119/51
[2021-05-24] VITALS: BP 110/46
[2021-05-24 04:00] VITALS: BP 113/71
[2021-05-24 07:00] LABS: ABSOLUTE EOSINOPHILS 0.1 thou/uL (0.0-0.7); ABSOLUTE LYMPHOCYTES 1.5 thou/uL (0.8-5.3); ABSOLUTE MONOCYTES 0.9 thou/uL (0.0-1.2); ABSOLUTE NEUTROPHILS 6.6 thou/uL (1.6-8.1); BASOPHILS 0.2 %; EOSINOPHILS 0.6 %; HEMATOCRIT 27.9 % (37.0-47.0); HEMOGLOBIN 8.9 gm/dL (12.0-15.0); LYMPHOCYTES 16.9 %; MCH 24.1 pg (26.0-34.0); MCV 75.3 fL (80.0-100.0); MONOCYTES 10.2 %; MPV 7.8 fl. (7.2-11.1); NUCLEATED RBCS 0 /100WBC; PLATELET COUNT* 224 thou/uL (150-400); POLYS 72.1 %; RBC 3.71 mil/uL (4.20-5.00); RDW-CV 19.7 % (10.5-14.5); WBC 9.1 thou/uL (4.0-11.0)
[2021-05-24 07:16] LABS: ALBUMIN 2.1 g/dL (3.4-5.0); CALCIUM 8.3 mg/dL (8.5-10.1); CREATININE 0.6 mg/dL (0.6-1.3); POTASSIUM 3.4 mmol/L (3.5-5.1); TOTAL BILIRUBIN 0.7 mg/dL (<0.1-1.0)
[2021-05-24 09:20] VITALS: BP 108/69
[2021-05-24 11:46] VITALS: BP 110/62
[2021-05-24 16:48] VITALS: BP 110/59
[2021-05-24 20:00] VITALS: BP 134/64
[2021-05-25] VITALS (7 sets, daily range): BP systolic 91–107; BP diastolic 49–58
== END 2021-05-25 18:06 | disposition home health service (06) | DRG 291 ==
LOC: M.ERS 22:17 → M.2W 05-20 03:48 → M.TBA-ER 05-20 03:48 → M.2W 05-20 11:45
PROVIDERS: Internal Medicine; Personal Emergency Response Attendant; ADMIT Internal Medicine; ATTEND Internal Medicine
DX: I11.0 Hypertensive heart disease with heart failure (principal); J18.9 Pneumonia, unspecified organism; I50.33 Acute on chronic diastolic (congestive) heart failure; I48.91 Unspecified atrial fibrillation; E78.5 Hyperlipidemia, unspecified; E11.9 Type 2 diabetes mellitus without complications; E87.6 Hypokalemia; I49.5 Sick sinus syndrome; E03.9 Hypothyroidism, unspecified; R53.81 Other malaise; Z20.822 Contact with and (suspected) exposure to COVID-19; Z90.710 Acquired absence of both cervix and uterus; Z95.5 Presence of coronary angioplasty implant and graft; Z88.8 Allergy status to other drugs, medicaments and biological substances; Z87.891 Personal history of nicotine dependence; Z98.49 Cataract extraction status, unspecified eye; Z82.49 Family history of ischemic heart disease and other diseases of the circulatory system; Z95.0 Presence of cardiac pacemaker

== ENCOUNTER 2021-05-31 11:06 | Emergency (ER) | payer OTHER ==
[~2021-05-31] VITALS: Ht 160 cm; Wt 72.6 kg
[2021-05-31 11:43] LABS: ABSOLUTE MONOCYTES 0.5 thou/uL (0.0-1.2); BASOPHILS 0.4 %; EOSINOPHILS 0.1 %; HEMATOCRIT 31.3 % (37.0-47.0); HEMOGLOBIN 9.8 gm/dL (12.0-15.0); MCH 23.9 pg (26.0-34.0); MCHC 31.4 g/dL (28.0-37.0); MCV 76.2 fL (80.0-100.0); MONOCYTES 7.6 %; MPV 7.4 fl. (7.2-11.1); NUCLEATED RBCS 0 /100WBC; PLATELET COUNT* 212 thou/uL (150-400); POLYS 76.9 %; RBC 4.11 mil/uL (4.20-5.00); RDW-CV 21.3 % (10.5-14.5); WBC 6.5 thou/uL (4.0-11.0)
[2021-05-31 12:06] LABS: ALBUMIN 2.8 g/dL (3.4-5.0); CALCIUM 8.3 mg/dL (8.5-10.1); CREATININE 0.8 mg/dL (0.6-1.3); MAGNESIUM 1.7 mg/dL (1.8-2.4); TOTAL BILIRUBIN 0.7 mg/dL (<0.1-1.0); TOTAL PROTEIN 6.2 g/dL (6.4-8.2)
[2021-05-31 12:16] LABS: POTASSIUM 2.8 mmol/L (3.5-5.1)
[2021-05-31 12:50] LABS: PLATELET ESTIMATE ADEQUATE
[2021-05-31] MEDS ORDERED: ZOFRAN ODT4 MG DISSOLVE (12:54)
[2021-05-31] MEDS ORDERED: EFFER-K 20 MEQ20 ME1 PO (12:54)
--- NOTE | 2021-05-31 12:54 | NUR ---
Received page from ER , requesting assistance with placement per son's request. further explained pt has been evaluated and no acute process identified that requires admission. Called [facility] Nurse Adele, not available, Grazyna read CM her visit note from today. Family reported pt having stomach bug symptoms and were concerned. Adele called PCP and advice is that if symptoms presist take pt to ER. Called Son Killian Jules [phone] his focus was on past hospitalization and he identified concerns that he stated Mgr had spoken to him about. Few sentences later stated he had not spoken to Mgr about concerns. Reclarified and he changed back to he had spoke about his concerns. Redirected son to moms need for placement since we have no admission needs today. Requested choice of facilities -he named Rehab and shared that pt was evaluated for this and did not meet criteria for this type of admission . Killian refused Skilled placement (pt has had admission in last 30 days) Killian stated would take her home. Son was just concerned because rest of the family had 36 hour stomach flu last and pt had those symptoms today. Killian focused again on last admission and dc summary stating Rehab and pt was sent home, then she was evaluated again for Rehab, which did not meet criteria for. Offered Skilled again and he refused. Called ER back and reported conversation with son who now states will take pt home since she can't go to Rehab and there is no admission need.
[2021-05-31 13:30] VITALS: BP 119/60
--- NOTE | 2021-05-31 15:34 | EKG ---
[place] [address] ELECTROCARDIOGRAM REPORT Name: MENA DELAROSA Room: [facility]#: [id number] Admission: 05/31/21 Attend Phys: Discharge: 05/31/21 Date of : 49 Date of Service: 05/31/21 1128 Report #: [id number] THIS REPORT FOR: //name// [facility] ED Test Date: 2021-05-31 Test Time: 11:28:22 Pat Name: MENA DELAROSA Department: Room: Gender: F Multiple Coil Winder: : 1945 Requested By: Viet Ray Order Number: [id number] MD: Avila Taylor Measurements Intervals Gila Rate: 60 P: [place]: 201 QRS: 25 QRSD: 88 T: 79 QT: 492 QTc: 492 Interpretive Statements Atrial-paced rhythm Minimal ST elevation, inferior leads Borderline prolonged QT interval Compared to ECG 05/20/2021 00:34:09 ST (T wave) deviation now present Ventricular premature complex(es) no longer present Electronically Signed On 05-31-2021 15:34:01 SECURITY SYSTEMS SPECIALIST by Avila Taylor [email or web address] <ELECTRONICALLY SIGNED> By: Avila Taylor MD, FACC 05/31/21 1534 1128 1128 Avila Taylor MD, FACC /EPI
== END 2021-05-31 13:32 | disposition home or self-care (01) ==
LOC: M.ERS 11:06
PROVIDERS: Family Medicine
DX: R11.2 Nausea with vomiting, unspecified (principal); Z20.822 Contact with and (suspected) exposure to COVID-19; E87.6 Hypokalemia; Z90.49 Acquired absence of other specified parts of digestive tract; Z90.710 Acquired absence of both cervix and uterus; Z79.899 Other long term (current) drug therapy; Z87.891 Personal history of nicotine dependence; Z88.5 Allergy status to narcotic agent; Z88.6 Allergy status to analgesic agent

== ENCOUNTER 2021-06-06 12:46 | Inpatient (IN) | payer OTHER ==
[~2021-06-06] VITALS: Ht 160 cm; Wt 73.3 kg
[~2021-06-06 12:46] MED LIST changes: +EFFER-K 20 MEQ20 ME1 PO; +ZOFRAN ODT4 MG DISSOLVE
[2021-06-06 12:49] VITALS: BP 107/61
[2021-06-06 13:28] LABS: ABSOLUTE LYMPHOCYTES 1.7 thou/uL (0.8-5.3); ABSOLUTE MONOCYTES 0.8 thou/uL (0.0-1.2); ABSOLUTE NEUTROPHILS 5.8 thou/uL (1.6-8.1); BASOPHILS 0.4 %; EOSINOPHILS 0.4 %; HEMATOCRIT 35.1 % (37.0-47.0); HEMOGLOBIN 11.3 gm/dL (12.0-15.0); LYMPHOCYTES 20.1 %; MCH 24.4 pg (26.0-34.0); MCHC 32.2 g/dL (28.0-37.0); MCV 75.8 fL (80.0-100.0); MONOCYTES 9.8 %; MPV 7.4 fl. (7.2-11.1); NUCLEATED RBCS 0 /100WBC; PLATELET COUNT* 381 thou/uL (150-400); POLYS 69.3 %; RBC 4.62 mil/uL (4.20-5.00); RDW-CV 21.6 % (10.5-14.5); WBC 8.4 thou/uL (4.0-11.0)
[2021-06-06 14:00] LABS: CALCIUM 9.2 mg/dL (8.5-10.1); CREATININE 1.4 mg/dL (0.6-1.3); POTASSIUM 4.6 mmol/L (3.5-5.1)
[2021-06-06 14:01] LABS: ANISOCYTOSIS 2+; HYPOCHROMASIA 1+; PLATELET ESTIMATE ADEQUATE
[2021-06-06 14:04] LABS: ALBUMIN 3.3 g/dL (3.4-5.0); TOTAL BILIRUBIN 0.8 mg/dL (<0.1-1.0); TOTAL PROTEIN 6.9 g/dL (6.4-8.2)
[2021-06-06 16:57] LABS: CALCIUM 9.2 mg/dL (8.5-10.1); CREATININE 1.3 mg/dL (0.6-1.3); POTASSIUM 4.3 mmol/L (3.5-5.1)
[2021-06-06 18:24] VITALS: BP 111/59
[2021-06-06 23:30] VITALS: BP 100/52
[2021-06-07] VITALS: BP 98/58
[2021-06-07 04:00] VITALS: BP 104/54
--- NOTE | 2021-06-07 08:17 | EKG ---
[place] [address] ELECTROCARDIOGRAM REPORT Name: BerylMENA SCOTT TAYLA Room: [address] ADM IN [facility]#: [id number] Admission: 06/06/21 Attend Phys: Iraj Alfred Discharge: Date of : 49 Date of Service: 06/06/21 1258 Report #: [id number] THIS REPORT FOR: //name// [facility] ED Test Date: 2021-06-06 Test Time: 12:58:46 Pat Name: MENA DELAROSA Department: Room: [facility] Gender: F Fabrication Lead: ALVARO : 1945 Requested By: Anton Motta Order Number: [id number] MD: Mo David Measurements Intervals [place] Rate: 62 P: [place]: 212 QRS: 50 QRSD: 101 T: 65 QT: 450 QTc: 457 Interpretive Statements Atrial-paced rhythm Low voltage, precordial leads Compared to ECG 05/31/2021 11:28:22 no change Electronically Signed On 06-07-2021 8:16:57 IRONER SOCK by Mo David [email or web address] <ELECTRONICALLY SIGNED> By: Mo David MD, [facility] 06/07/21 0816 1258 1258 Mo David MD, [facility] /EPI
[2021-06-07 09:00] VITALS: BP 103/64; BP 115/57; BP 72/30
[2021-06-07 09:09] VITALS: BP 103/64
--- NOTE | 2021-06-07 11:41 | CON ---
[address] [address] CONSULTATION Name: MENA DELAROSA Room: [address] IN .R.#: [id number] Admission: 06/06/21 Attend Phys: Jaime Gorman Discharge: Date of : 49 Report #: [id number] THIS REPORT FOR: cc: Aissatou Betts Tammy RNP Liston, Michael J. MD [facility] ~ cc: Aissatou Betts DATE OF CONSULTATION: 06/07/2021 CARDIOLOGY CONSULT INDICATION: Syncope. HISTORY OF PRESENT ILLNESS: The patient is a 76-year-old white female with history of paroxysmal atrial fibrillation and sick sinus syndrome, status post dual-chamber pacemaker placement on 05/14/2021. The patient also has coronary artery disease with stenting to the proximal and mid LAD on 2 separate occasions this year. The patient was leaving gnosticism yesterday, talking with friends with family members on either side, using her walker when she passed out. Apparently, the patient's family was able to catch her and lowered her to the ground before she injured herself. The patient reports associated shortness of breath and palpitations. She was not having any chest pain. She denies orthopnea. Interrogation of her pacemaker today shows no arrhythmias since her last documented episode on 05/21. Presently, she is in a sinus rhythm. EKG shows sinus rhythm with no acute ST or T-wave abnormality. At the time of interview, she is without complaint. PAST MEDICAL HISTORY: 1. Coronary artery disease with previous percutaneous coronary intervention. 2. Paroxysmal atrial fibrillation. 3. Sick sinus syndrome, status post dual-chamber pacemaker placement. 4. Chronic anticoagulation. 5. Hyperlipidemia. 6. Hypertension. 7. Type 2 diabetes mellitus. 8. History of cataract extraction. ALLERGIES: FENTANYL, LISINOPRIL AND ENALAPRIL. HOME MEDICATIONS: Eliquis 5 mg p.o. b.i.d., atorvastatin 20 mg p.o. at bedtime, donepezil 5 mg daily, furosemide 20 mg daily, levothyroxine 137 mcg daily, losartan 100 mg daily, metformin 500 mg b.i.d., Nitrostat sublingual p.r.n., [place] [address] CONSULTATION Name: MENA DELAROSA Room: [address]#: [id number] Admission: 06/06/21 Attend Phys: Jaime Gorman Discharge: Date of : 49 Report #: [id number] Zofran 4 mg dissolving tablet q. 8 hours p.r.n., Protonix 40 mg b.i.d., Effer-K 20 mEq tablets p.o. b.i.d., ranolazine 1000 mg p.o. b.i.d., tramadol 50 mg q. 6 hours p.r.n. FAMILY HISTORY: Positive for coronary artery disease. SOCIAL HISTORY: The patient is . She smokes half pack of cigarettes daily. She denies use of alcohol. REVIEW OF SYSTEMS: A 14-point review of systems positive for syncope, palpitations, shortness of breath, dyspnea on exertion, joint pain, otherwise unremarkable. PHYSICAL EXAMINATION: VITAL SIGNS: Blood pressure 104/54, pulse is 64 and regular. GENERAL: This is a pleasant elderly female in no distress. Mood and affect appropriate. HEENT: Extraocular muscles intact. Mucous membranes are moist. NECK: Shows no jugular venous distention. CHEST: Reveals diminished breath sounds without wheezes or rales. CARDIAC: Reveals a regular rhythm without gallop or murmur. ABDOMEN: Reveals normal bowel sounds. The abdomen is soft and nontender. EXTREMITIES: Shows no edema. SKIN: Dry. DIAGNOSTIC DATA: A 12-lead EKG shows sinus rhythm without acute ST or T-wave abnormalities. Chest x-ray shows no acute cardiopulmonary abnormality. There is some scarring in the right lower lobe. LABORATORY DATA: Reviewed. Sodium 131, potassium 4.3, chloride 91, bicarb 32, BUN 22, creatinine 1.3, serum glucose 78. High sensitivity troponin 348 and 338. White blood cell count 8.4, hemoglobin 11.3, platelet count 381,000. IMPRESSION AND RECOMMENDATIONS: 1. Syncope. Etiology not entirely clear. This does not appear to be arrhythmia as the pacemaker interrogation shows no presence of arrhythmia. I suspect she is having orthostatic hypotension. We will adjust antihypertensive medication. Would allow permissive mild hypertension in favor of avoiding syncope. Check orthostatic blood pressures while in hospital. 2. Sick sinus syndrome, status post dual-chamber pacemaker placement. Pacemaker is functioning normally by interrogation today. 3. Paroxysmal atrial fibrillation. Maintaining sinus rhythm presently. [address] [address] CONSULTATION Name: MENA DELAROSA Room: M.210-P ADM IN M.R.#: [id number] Admission: 06/06/21 Attend Phys: Jaime Gorman Discharge: Date of : 49 Report #: [id number] Continue chronic anticoagulation. 4. Coronary artery disease, presently stable. She has chronically elevated troponins. She is not having any symptoms to suggest acute coronary syndrome. 5. Hypertension. Blood pressure presently low. We will adjust antihypertensives as this may be contributing to her syncope. 6. Dyslipidemia. Continue statin agent as outlined above. 7. Diabetes, per hospitalist. <ELECTRONICALLY SIGNED> By: Vadim iFnley MD, FACC 06/07/21 1141 0821 0857Vadim Finley MD, FACC /nt
[2021-06-07 12:00] VITALS: BP 99/62
[2021-06-07 20:15] VITALS: BP 110/58
[2021-06-08] VITALS (13 sets, daily range): BP systolic 82–108; BP diastolic 45–61
[2021-06-08] MEDS ORDERED: COZAAR 25 MG TA25 M1 PO (09:55)
[2021-06-09] VITALS: BP 108/50
[2021-06-09 04:00] VITALS: BP 105/48
[2021-06-09 12:00] VITALS: BP 114/70
[2021-06-09 17:18] VITALS: BP 122/70
[2021-06-09 20:00] VITALS: BP 110/43
[2021-06-10 05:36] VITALS: BP 107/50
[2021-06-10 08:00] VITALS: BP 115/63
[2021-06-10 10:06] VITALS: BP 96/61
[2021-06-10 12:00] VITALS: BP 118/60
[2021-06-10 12:26] LABS: ABSOLUTE LYMPHOCYTES 1.6 thou/uL (0.8-5.3); ABSOLUTE MONOCYTES 0.8 thou/uL (0.0-1.2); ABSOLUTE NEUTROPHILS 4.4 thou/uL (1.6-8.1); BASOPHILS 0.7 %; EOSINOPHILS 0.5 %; HEMATOCRIT 32.4 % (37.0-47.0); HEMOGLOBIN 10.2 gm/dL (12.0-15.0); LYMPHOCYTES 23.8 %; MCH 24.1 pg (26.0-34.0); MCHC 31.4 g/dL (28.0-37.0); MCV 76.8 fL (80.0-100.0); MONOCYTES 11.3 %; MPV 7.3 fl. (7.2-11.1); NUCLEATED RBCS 0 /100WBC; PLATELET COUNT* 366 thou/uL (150-400); POLYS 63.7 %; RBC 4.23 mil/uL (4.20-5.00); RDW-CV 21.8 % (10.5-14.5); WBC 6.9 thou/uL (4.0-11.0)
[2021-06-10 12:40] LABS: CALCIUM 9.4 mg/dL (8.5-10.1); CREATININE 0.9 mg/dL (0.6-1.3)
[2021-06-10 12:45] LABS: MAGNESIUM 1.4 mg/dL (1.8-2.4); TOTAL BILIRUBIN 0.5 mg/dL (<0.1-1.0); TOTAL PROTEIN 6.2 g/dL (6.4-8.2)
[2021-06-10 14:44] LABS: PLATELET ESTIMATE ADEQUATE
[2021-06-10 15:19] VITALS: BP 96/61
== END 2021-06-10 16:00 | disposition home health service (06) | DRG 308 ==
LOC: M.ERS 12:46 → M.TBA-ER 14:29 → M.2W 14:29 → M.ERS 14:29 → M.2W 15:47 → M.TBA-ER 16:12 → M.2W 23:26 → M.TBA-ER 23:26 → M.2W 06-10 16:00
PROVIDERS: Emergency Medicine Emergency Medical Services; Internal Medicine; ADMIT Internal Medicine; ATTEND Internal Medicine
PROC: 4B02XSZ Measurement of Cardiac Pacemaker, External Approach (ICD-10-PCS; principal; 2021-06-07)
DX: I49.8 Other specified cardiac arrhythmias (principal); N17.0 Acute kidney failure with tubular necrosis; E87.1 Hypo-osmolality and hyponatremia; E44.1 Mild protein-calorie malnutrition; I13.0 Hypertensive heart and chronic kidney disease with heart failure and stage 1 through stage 4 chronic kidney disease, or unspecified chronic kidney disease; I50.42 Chronic combined systolic (congestive) and diastolic (congestive) heart failure; I95.1 Orthostatic hypotension; F17.290 Nicotine dependence, other tobacco product, uncomplicated; R77.8 Other specified abnormalities of plasma proteins; I49.5 Sick sinus syndrome; I25.10 Atherosclerotic heart disease of native coronary artery without angina pectoris; E78.5 Hyperlipidemia, unspecified; N18.9 Chronic kidney disease, unspecified; E11.22 Type 2 diabetes mellitus with diabetic chronic kidney disease; K21.9 Gastro-esophageal reflux disease without esophagitis; E03.9 Hypothyroidism, unspecified; I48.0 Paroxysmal atrial fibrillation; E11.9 Type 2 diabetes mellitus without complications; J44.9 Chronic obstructive pulmonary disease, unspecified; Z20.822 Contact with and (suspected) exposure to COVID-19; Z68.28 Body mass index [BMI] 28.0-28.9, adult; Z95.5 Presence of coronary angioplasty implant and graft; Z90.710 Acquired absence of both cervix and uterus; Z95.0 Presence of cardiac pacemaker; Z79.899 Other long term (current) drug therapy; Z88.4 Allergy status to anesthetic agent; Z88.8 Allergy status to other drugs, medicaments and biological substances; I25.2 Old myocardial infarction; Z86.73 Personal history of transient ischemic attack (TIA), and cerebral infarction without residual deficits; Z79.01 Long term (current) use of anticoagulants; Z98.49 Cataract extraction status, unspecified eye

== ENCOUNTER 2021-07-12 06:57 | Inpatient (IN) | payer OTHER ==
[~2021-07-12] VITALS: Ht 152.4 cm; Wt 73.5 kg
--- NOTE | ~2021-07-12 | CON ---
[address] [address] CONSULTATION Name: MENA DELAROSA Room: [address] IN M.R.#: [id number] Admission: 07/12/21 Attend Phys: Jaime Gorman Discharge: Date of : 49 Report #: [id number] THIS REPORT FOR: cc: Aissatou Betts Tammy RNP Khosla, Parveen K. MD ~ DATE OF CONSULTATION: 07/13/2021 HISTORY OF PRESENT ILLNESS: A 76-year-old female patient who was seen by me for the possibility of stroke. The patient provided some history and the son was here and he provided some history. The history I got in this patient is that she came in with left-sided weakness. She was evaluated by [facility] and subsequently she was admitted. Her weakness on the left side has improved, but she still has left facial palsy. The patient's symptoms have improved some, it fluctuates, but has been better except for the face. Review of systems indicates she has atrial fibrillation and she was on Eliquis and she take Eliquis on a regular basis. She has a pacemaker put in. She does not know if pacemaker is compatible with MRI or not. She has some memory problems in the baseline that may have been worse. There was some question of speech difficulty in this patient, but that also has improved as I understand. REVIEW OF SYSTEMS: A 14-point review of system was carried out in this patient is positive for coronary artery disease, atrial fibrillation, diabetes, prior chest pain, congestive heart failure, cervical spleen, hypokalemia. She is admitted with the stroke now. She had falls at home as I understand from patient as well as the son, but she is not complaining of any neck pain or any back pain. Otherwise, she is not complaining of any new eye, ENT, cardiac, respiratory, GI, , musculoskeletal, constitutional, dermatological, hematological, psychiatric, throat, allergic symptom associated with present symptomatology. PAST MEDICAL HISTORY: Positive for what looks likely memory disturbances as well as a pacemaker. FAMILY HISTORY: Unremarkable. SOCIAL HISTORY: She used to smoke, but she stopped smoking since last . PHYSICAL EXAMINATION: The patient's examination indicates she could not tell me what month it is. She could not tell me what date it is. So her memory is poor, but speech was there and she was not oriented. Cranial nerve examination 2-12 does indicate facial palsy on the left side. She does not cooperate enough to do the visual field evaluation. She was able to move both sides and according to the son, she could not move the left leg [place] [address] CONSULTATION Name: BerylMENA SCOTT Room: [address] [place] ..#: [id number] Admission: 07/12/21 Attend Phys: Jaime Gorman Discharge: Date of : 49 Report #: [id number] and this is a significant improvement. Pulses are difficult to feel, she could not cooperate with the position sense very well. There is not much cerebellar sign in this patient. I did not make the patient walk. I could not look at the patient's fundus. She can hear. She does not have any visual disturbances. She does not have any edema. There is no thyroid mass. There is no carotid bruit. She does not appear to have any significant respiratory difficulty. She has atrial fibrillation. Blood pressure is 109/93, respirations 16, pulse is 56 and temperature is 98.2. LABORATORY DATA: White count is normal at 10.6. Glucose is 83. She had a CT as well as CT angiogram and that appeared unremarkable. IMPRESSION: The patient's clinical presentation is suggestive of a stroke. If that can be confirmed that will indicate that the stroke happened in spite of being on anticoagulation. That will require some further workup and a Cardiology consult and may have to do a VALERI on this patient. I discussed all of it with the patient and the son and they want to follow this plan and we will do that. Thank you very much for this referral and if you have any questions, please feel free to contact me. By: 1405 1430Otoniel Hodges MD /nt
[2021-07-12 07:11] VITALS: BP 116/64
[2021-07-12 08:11] LABS: ABSOLUTE BASOPHILS 0.1 thou/uL (0.0-0.2); ABSOLUTE LYMPHOCYTES 2.5 thou/uL (0.8-5.3); ABSOLUTE MONOCYTES 1.1 thou/uL (0.0-1.2); ABSOLUTE NEUTROPHILS 6.9 thou/uL (1.6-8.1); EOSINOPHILS 0.4 %; HEMATOCRIT 31.7 % (37.0-47.0); HEMOGLOBIN 9.9 gm/dL (12.0-15.0); LYMPHOCYTES 23.5 %; MCH 23.6 pg (26.0-34.0); MCHC 31.1 g/dL (28.0-37.0); MCV 75.9 fL (80.0-100.0); MONOCYTES 10.4 %; MPV 7.6 fl. (7.2-11.1); NUCLEATED RBCS 0 /100WBC; PLATELET COUNT* 280 thou/uL (150-400); POLYS 64.7 %; RBC 4.17 mil/uL (4.20-5.00); WBC 10.6 thou/uL (4.0-11.0)
[2021-07-12 08:29] LABS: CALCIUM 8.7 mg/dL (8.5-10.1); CREATININE 0.8 mg/dL (0.6-1.3); POTASSIUM 3.9 mmol/L (3.5-5.1)
[2021-07-12 08:34] LABS: ALBUMIN 2.9 g/dL (3.4-5.0); TOTAL BILIRUBIN 0.5 mg/dL (<0.1-1.0); TOTAL PROTEIN 6.2 g/dL (6.4-8.2)
[2021-07-12 12:31] LABS: CHOLESTEROL 136 mg/dL (<200); HDL CHOLESTEROL 65 mg/dL (>40); LDL CHOLESTEROL 53 mg/dL (<100); TC:HDL 2.1 Ratio (Not establshd); TRIGLYCERIDE 92 mg/dL (<150); VLDL 18 mg/dL (<40)
[2021-07-12 12:32] LABS: SERUM ASSESSMENT Clear
[2021-07-12 13:44] VITALS: BP 108/51
[2021-07-12 17:01] VITALS: BP 99/58
[2021-07-12 18:03] VITALS: BP 117/63
[2021-07-12 18:18] VITALS: BP 114/63
--- NOTE | 2021-07-12 18:35 | NUR ---
THE PATIENT IS ALERT. C/O OF SOME BACK PAIN.THE PATIENT WAS RECENTLY MEDICATED CALL [facility]. FALL PRECAUTIONS IN PLACE. FAMILY AT THE BEDSIDE. LEFT SIDE FACIAL DROOP NOTED.
[2021-07-12 20:00] VITALS: BP 117/63
[2021-07-13] VITALS: BP 100/58; BP 114/65
--- NOTE | 2021-07-13 03:53 | NUR ---
SLEEPING FAIRLY WELL TONIGHT. PT ASSISTED TO BR WITH WALKER, BECAME VERY DIZZY AND SYNCOPAL, BACK TO BED. NEXT UP TO BSC WITH ASSIST. ORTHOSTATIC BP TAKEN. LYING 114/65, HR 68, STANDING 100/58 HR 94. VOIDING IN LG AMT WITHOUT DIFFICULTY. CONT HAVING LT FACIAL DROOP, SPEECH CLEAR. NIH SCORE OF 1. TELEMETRY ON SHOWING A-PACED RHYTHM.
[2021-07-13 04:45] VITALS: BP 106/60
[2021-07-13 08:00] VITALS: BP 109/93
--- NOTE | 2021-07-13 08:28 | 2DMMODE ---
[place] [address] 2 D/M-MODE ECHOCARDIOGRAM Name: MENA DELAROSA Room: [address] IN [facility]#: [id number] Admission: 07/12/21 Attend Phys: Iraj Alfred Discharge: Date of : 49 Date of Service: 07/13/21 0828 Report #: [id number] THIS REPORT FOR: cc: Aissatou Betts Tammy RNP Liston, Michael J. MD [facility] ~ ADDENDUM APPROVED REPORT Study performed: 07/12/2021 14:51:06 EXAM: Comprehensive 2D, Doppler, and color-flow Echocardiogram Patient Location: In-Patient Room #: er Status: routine BSA: 1.77 HR: 75 bpm BP: 100/62 mmHg Rhythm: NSR Other Information Study Quality: Good Indications CVA/TIA Echo Enhancing Agent Indication: Rule out Shunt Agent(s) / Amount(s) Used: Agitated Saline 10 cc 2D Dimensions IVSd: 10.24 (7-11mm) LVOT Diam: 19.59 (18-24mm) LVDd: 40.67 mm PWd: 8.05 (7-11mm) Ascending Ao: 35.92 (22-36mm) LVDs: 21.88 (25-40mm) Aortic Root: 38.10 mm Volumes Left Atrial Volume (Systole) LA ESV Index: 26.00 mL/m2 Aortic Valve AoV Peak Zay.: 1.27 m/s AO Peak Gr.: 6.46 mmHg LVOT Max P.42 mmHg AO Mean Gr.: 3.55 mmHg LVOT Mean P.42 [place] [address] 2 D/M-MODE ECHOCARDIOGRAM Name: MENA DELAROSA Room: [address] IN .R.#: [id number] Admission: 07/12/21 Attend Phys: Iraj Alfred Discharge: Date of : 49 Date of Service: 07/13/21 0828 Report #: [id number] LVOT Max V: 1.16 m/s AO V2 VTI: 28.32 cm LVOT Mean V: 0.71 m/s FANI (VTI): 2.72 cm2 LVOT V1 VTI: 25.57 cm AI Cavalier: 1.50 m/s2 AI PHT: 719.48 ms Mitral Valve E/A Ratio: 0.70 MV Decel. Time: 271.42 ms MV E Max Zay.: 0.57 m/s MV PHT: 78.71 ms MVA (PHT): 2.79 cm2 TDI E/Lateral E': 8.14 E/Medial E': 8.14 Medial E' Zay.: 0.07 m/s Lateral E' Zay.: 0.07 m/s Pulmonary Valve PV Peak Zay.: 0.80 m/s PV Peak Gr.: 2.56 mmHg Tricuspid Valve RAP Estimate: 5.00 mmHg TR Peak Gr.: 36.85 mmHg RVSP: 41.00 mmHg PA Pressure: 41.00 mmHg Left Ventricle The left ventricle is normal size. There is normal LV segmental wall motion. There is normal left ventricular wall thickness. Left ventricular systolic function is normal. LVEF is 65-70%. Grade I - abnormal relaxation pattern. Right Ventricle The right ventricle is normal size. The right ventricular systolic function is normal. Pacemaker lead is present in the right ventricle. Atria The left atrium size is normal. The interatrial septum is intact with no evidence for an atrial septal defect. The right atrium size is normal. Aortic Valve The aortic valve is normal in structure. Mild aortic regurgitation. There is no aortic valvular stenosis[place] [address] 2 D/M-MODE ECHOCARDIOGRAM Name: MENA DELAROSA Room: [address] IN M.R.#: [id number] Admission: 07/12/21 Attend Phys: Iraj Alfred Discharge: Date of : 49 Date of Service: 07/13/21 0828 Report #: [id number] The mitral valve is normal in structure. Trace mitral regurgitation. No evidence of mitral valve stenosis. Tricuspid Valve The tricuspid valve is normal in structure. Mild tricuspid regurgitation. The RVSP is 40-45 mmHg. Pulmonic Valve The pulmonary valve is normal in structure. There is no pulmonic valvular regurgitation. Great Vessels The aortic root is normal in size. IVC is normal in size and collapses >50% with inspiration. Pericardium There is no pericardial effusion. <Conclusion> The left ventricle is normal size. There is normal left ventricular wall thickness. Left ventricular systolic function is normal. LVEF is 65-70%. Grade I - abnormal relaxation pattern. Pacemaker lead is present in the right ventricle. Mild aortic regurgitation. Trace mitral regurgitation. Mild tricuspid regurgitation. The RVSP is 40-45 mmHg. IVC is normal in size and collapses >50% with inspiration. The interatrial septum is intact with no evidence for an atrial septal defect. <ELECTRONICALLY SIGNED> By: Vadim Finley MD, FACC 07/13/21827 7 7 Vadim Finley MD, FACC /INF
--- NOTE | 2021-07-13 10:02 | EKG ---
[place] [address] ELECTROCARDIOGRAM REPORT Name: MENA DELAROSA Room: [address] ADM IN [facility].#: [id number] Admission: 07/12/21 Attend Phys: Iraj Alfred Discharge: Date of : 49 Date of Service: 07/12/21711 Report #: [id number] THIS REPORT FOR: //name// [facility] ED Test Date: 2021-07-12 Test Time: 07:12:03 Pat Name: MENA DELAROSA Department: Room: [facility] Gender: F Employee Relations Assistant: FRANK : 1945 Requested By: Anton Motta Order Number: [id number] MD: Avila Taylor Measurements Intervals [place] Rate: 65 P: 16 NM: 181 QRS: 13 QRSD: 86 T: 88 QT: 420 QTc: 437 Interpretive Statements Sinus rhythm Possible inferior infarct, old Nonspecific right precordial ST-T abnormality; ischemia must be considered Compared to ECG 06/06/2021 12:58:46 Myocardial infarct finding now present Atrial-paced complex(es) or rhythm no longer present Ventricular-paced complex(es) or rhythm no longer present Electronically Signed On 07-12-2021 14:11:24 BACKEND PYTHON DEVELOPER by Avila Taylor [email or web address] <ELECTRONICALLY SIGNED> By: Aivla Taylor MD, [facility] 07/12/21 1411 1 1 Avila Taylor MD, [facility] /EPI
--- NOTE | 2021-07-13 10:06 | NUR ---
CM ASSESSMENT: PT IS KNOWN TO THIS CM FROM PREVIOUS ADMISSION. PT IS A&O, AND NORMALLY INDEPENDENT WITH ADL'S. PT USES A WALKER FOR MOBILITY. PT RESIDES AT HOME WITH HER SON AND [place]. [facility] PT HAS 0 HX OF SNF. CM D/C PLANNING NEEDS TBD AT THIS TIME. PT/OT EVALS ORDERED AND CURRENTLY PENDING AND WILL BE NEED TO DERTERMINE D/C PLAN FOR HOME WITH HH VS SNF PLACEMENT. CM WILL REMAIN AVAILABLE TO ASSIST AND FOLLOW NEEDED.
[2021-07-13 16:00] VITALS: BP 104/52
[2021-07-13 16:09] VITALS: BP 108/52
--- NOTE | 2021-07-13 18:33 | NUR ---
PT UP WITH ASSISTANCE TO THE BSC WITH USE OF THE WALKER. PT HAS IV FLUIDS INFUSING WITHOUT DIFFICULTY. PT HAS A [employer] PACEMEAKER. THIS RN CALLED [employer] TO GET AN OKAY FOR THE PT TO HAVE A MRI OF HER HEAD. VSS AFEBRILE. WILL CONTINUE TO MONITOR PLAN OF CARE.
[2021-07-13 20:00] VITALS: BP 110/69
[2021-07-14 01:29] VITALS: BP 101/57
[2021-07-14 04:00] VITALS: BP 99/60
[2021-07-14 07:08] LABS: GLYCOHEMOGLOBIN (HGB A1C) 5.2 % (4.8-5.6)
[2021-07-14 09:06] VITALS: BP 105/64
[2021-07-14 12:00] VITALS: BP 106/54
[2021-07-14 16:00] VITALS: BP 111/68
--- NOTE | 2021-07-14 17:35 | NUR ---
cm discussed snf options with pt. pt has no preference. [facility] and [facility].
[2021-07-14 19:50] VITALS: BP 126/73
--- NOTE | 2021-07-14 20:12 | NUR ---
MRI is scheduled for 1100 tomorrow with rep from company that makes brand of pacemaker which pt had implanted in April. VSS. L facial droop remains. Pt c/o dizziness with activity, which causes nausea. Pt up to chair for much of afternoon. Will continue to monitor.
[2021-07-15 01:51] VITALS: BP 107/58
--- NOTE | 2021-07-15 01:57 | NUR ---
ASSUMED CARE OF PT AT 1900. PT IS ALERT AND ORIENTED. VSS. PERRLA. NO COMPLAINTS OF PAIN. PT IS A PACED ON THE TELEMETRY. PT IS RESTING COMFORTABLY IN BED. RESPIRATIONS ARE EVEN AND NONLABORED. WILL CONTINUE TO MONITOR PT.
[2021-07-15 04:00] VITALS: BP 113/59
[2021-07-15 08:01] VITALS: BP 103/60
[2021-07-15] MEDS ORDERED: LIPITOR40 MG PO (10:41)
[2021-07-15 12:00] VITALS: BP 130/64
[2021-07-15] MEDS ORDERED: ASA81BEC PO (14:11)
[2021-07-15 16:00] VITALS: BP 120/73
--- NOTE | 2021-07-15 16:40 | NUR ---
JEREMIAH Fraga/[facility] INDICATED THEY CAN ACCEPT PT MEDICALLY. INSUR AUTH PENDING. [facility] DOESNT HAVE CAPACITY.
--- NOTE | 2021-07-15 19:00 | NUR ---
No complaints. MRI done today. New IV placed to RAC (LAC IV infiltrated adn became painful; discontinued). VSS. Will continue to monitor.
[2021-07-15 20:00] VITALS: BP 114/63
[2021-07-16 01:56] VITALS: BP 115/62
[2021-07-16 05:51] VITALS: BP 101/54
[2021-07-16 08:11] VITALS: BP 108/52
[2021-07-16 08:48] LABS: ALBUMIN 2.6 g/dL (3.4-5.0); CALCIUM 8.4 mg/dL (8.5-10.1); CREATININE 0.7 mg/dL (0.6-1.3); POTASSIUM 4.4 mmol/L (3.5-5.1); TOTAL BILIRUBIN 0.3 mg/dL (<0.1-1.0); TOTAL PROTEIN 5.1 g/dL (6.4-8.2)
[2021-07-16 09:06] LABS: HEMATOCRIT 29.9 % (37.0-47.0); HEMOGLOBIN 9.3 gm/dL (12.0-15.0); MCH 24.1 pg (26.0-34.0); MCV 77.7 fL (80.0-100.0); MPV 7.4 fl. (7.2-11.1); RBC 3.84 mil/uL (4.20-5.00); RDW-CV 21.9 % (10.5-14.5); WBC 7.3 thou/uL (4.0-11.0)
--- NOTE | 2021-07-16 11:08 | NUR ---
JEREMIAH Fraga/[facility] INFORMED CM THAT PT WOULD HAVE A $6700 COPAY PT'S INSURANCE IS OUT OF NETWORK. CM SHARED INFO WITH PT'S SON, CHARLES. CHARLES ASKED TO CONT TO SEND REFERRAL TO OTHER FACILITY'S, PARTICULARLY IN [place] THEY WANT PT CLOSE POSSIBLE TO FAMILY. CM [facility]END [facility] AND [facility]
[2021-07-16 12:45] VITALS: BP 104/65
--- NOTE | 2021-07-16 15:46 | NUR ---
PT UP WITH WALKER AND SBA. PT DID COMPLETE THERAPY. PT IS ON RM AIR. PT IS BEING DC'D TO [facility] IN [place]. PT IS WAITING IN WITH CALL LIGHT IN REACH.
--- NOTE | 2021-07-16 16:04 | NUR ---
REPORT GIVEN TO GEOFFREY DAVISITE AT 1600.
== END 2021-07-16 16:40 | DRG 64 ==
LOC: M.ERS 06:57 → M.2W 09:13 → M.TBA-ER 09:13 → M.2W 18:11
PROVIDERS: Emergency Medicine Emergency Medical Services; ADMIT Internal Medicine; ATTEND Internal Medicine
DX: I63.89 Other cerebral infarction (principal); G93.41 Metabolic encephalopathy; E44.0 Moderate protein-calorie malnutrition; R29.810 Facial weakness; I25.10 Atherosclerotic heart disease of native coronary artery without angina pectoris; I11.0 Hypertensive heart disease with heart failure; I50.9 Heart failure, unspecified; E78.5 Hyperlipidemia, unspecified; J45.909 Unspecified asthma, uncomplicated; J44.9 Chronic obstructive pulmonary disease, unspecified; D64.9 Anemia, unspecified; I48.0 Paroxysmal atrial fibrillation; R53.81 Other malaise; E11.51 Type 2 diabetes mellitus with diabetic peripheral angiopathy without gangrene; Z90.710 Acquired absence of both cervix and uterus; I25.2 Old myocardial infarction; Z95.5 Presence of coronary angioplasty implant and graft; Z95.0 Presence of cardiac pacemaker; Z88.8 Allergy status to other drugs, medicaments and biological substances; Z95.828 Presence of other vascular implants and grafts; Z87.891 Personal history of nicotine dependence; Z79.82 Long term (current) use of aspirin; Z79.899 Other long term (current) drug therapy; Z20.822 Contact with and (suspected) exposure to COVID-19; Z68.31 Body mass index [BMI] 31.0-31.9, adult; E11.65 Type 2 diabetes mellitus with hyperglycemia

== ENCOUNTER 2021-08-13 11:25 | Inpatient (IN) | payer OTHER ==
[~2021-08-13] VITALS: Ht 170.2 cm; Wt 75.9 kg
[~2021-08-13 11:25] MED LIST changes: +ASA81BEC PO
[2021-08-13 11:36] VITALS: BP 119/57
[2021-08-13 11:44] LABS: ABSOLUTE BASOPHILS 0.1 thou/uL (0.0-0.2); ABSOLUTE LYMPHOCYTES 1.6 thou/uL (0.8-5.3); ABSOLUTE MONOCYTES 1.1 thou/uL (0.0-1.2); ABSOLUTE NEUTROPHILS 12.5 thou/uL (1.6-8.1); BASOPHILS 0.4 %; EOSINOPHILS 0.3 %; HEMATOCRIT 32.4 % (37.0-47.0); HEMOGLOBIN 10.2 gm/dL (12.0-15.0); LYMPHOCYTES 10.6 %; MCH 23.2 pg (26.0-34.0); MCHC 31.4 g/dL (28.0-37.0); MONOCYTES 7.4 %; MPV 7.3 fl. (7.2-11.1); NUCLEATED RBCS 0 /100WBC; PLATELET COUNT* 419 thou/uL (150-400); POLYS 81.3 %; RBC 4.38 mil/uL (4.20-5.00); WBC 15.4 thou/uL (4.0-11.0)
[2021-08-13 11:58] LABS: CALCIUM 9.3 mg/dL (8.5-10.1)
[2021-08-13 12:08] LABS: ALBUMIN 3.7 g/dL (3.4-5.0); MAGNESIUM 1.6 mg/dL (1.8-2.4); TOTAL BILIRUBIN 0.6 mg/dL (<0.1-1.0); TOTAL PROTEIN 7.6 g/dL (6.4-8.2)
[2021-08-13 12:18] LABS: PLATELET ESTIMATE INCREASED
[2021-08-13 12:19] LABS: HYPOCHROMASIA 2+; MICROCYTES 1+
[2021-08-13 12:20] LABS: ANISOCYTOSIS 1+
[2021-08-13 15:15] VITALS: BP 95/41
--- NOTE | 2021-08-13 15:15 | EKG ---
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 : 1945 Requested By: Anton Motta Order Number: [id number] MD: Avila Taylor Measurements Intervals [place] Rate: 63 P: CT: QRS: 35 QRSD: 74 T: 75 QT: 440 QTc: 451 Interpretive Statements Sinus rhythm 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
[2021-08-13 16:00] VITALS: BP 112/63
[2021-08-13 19:57] LABS: URINE BILIRUBIN NEGATIVE (Negative); URINE BLOOD NEGATIVE (Negative); URINE CLARITY CLEAR; URINE COLOR YELLOW; URINE GLUCOSE-RANDOM NEGATIVE (Negative); URINE KETONES NEGATIVE (Negative); URINE LEUKOCYTES-REFLEX NEGATIVE (Negative); URINE NITRITE-REFLEX NEGATIVE (Negative); URINE PROTEIN NEGATIVE (Negative); URINE SPECIFIC GRAVITY <= 1.005 (1.005-1.030); URINE UROBILINOGEN 0.2 E.U./dl (0.2-1.0)
[2021-08-13 21:00] VITALS: BP 103/49
[2021-08-14] VITALS: BP 96/47
[2021-08-14 04:00] VITALS: BP 120/67
[2021-08-14 09:00] VITALS: BP 126/64
[2021-08-14 12:03] VITALS: BP 99/59
[2021-08-14 16:00] VITALS: BP 126/66
[2021-08-14 20:00] VITALS: BP 122/69
[2021-08-15] VITALS: BP 106/49
[2021-08-15 04:00] VITALS: BP 110/70
[2021-08-15 09:21] VITALS: BP 109/61
[2021-08-15 11:17] VITALS: BP 99/66
[2021-08-15 11:20] LABS: ABSOLUTE LYMPHOCYTES 1.5 thou/uL (0.8-5.3); ABSOLUTE MONOCYTES 1.1 thou/uL (0.0-1.2); ABSOLUTE NEUTROPHILS 5.3 thou/uL (1.6-8.1); BASOPHILS 0.4 %; EOSINOPHILS 0.3 %; HEMATOCRIT 27.2 % (37.0-47.0); HEMOGLOBIN 8.7 gm/dL (12.0-15.0); LYMPHOCYTES 18.8 %; MCH 23.7 pg (26.0-34.0); MCHC 31.8 g/dL (28.0-37.0); MCV 74.5 fL (80.0-100.0); MONOCYTES 13.7 %; MPV 7.3 fl. (7.2-11.1); NUCLEATED RBCS 0 /100WBC; PLATELET COUNT* 387 thou/uL (150-400); POLYS 66.8 %; RBC 3.66 mil/uL (4.20-5.00); RDW-CV 20.8 % (10.5-14.5); WBC 7.9 thou/uL (4.0-11.0)
[2021-08-15 11:29] LABS: ALBUMIN 2.9 g/dL (3.4-5.0); CALCIUM 8.7 mg/dL (8.5-10.1); CREATININE 0.9 mg/dL (0.6-1.3); POTASSIUM 4.9 mmol/L (3.5-5.1); TOTAL BILIRUBIN 0.3 mg/dL (<0.1-1.0); TOTAL PROTEIN 6.5 g/dL (6.4-8.2)
[2021-08-15 15:55] VITALS: BP 112/69
[2021-08-15 20:41] VITALS: BP 111/67
[2021-08-16] VITALS: BP 119/68
[2021-08-16 04:00] VITALS: BP 110/55
[2021-08-16 08:00] VITALS: BP 108/54
[2021-08-16] MEDS ORDERED: AMOX TR-K CLV1 EAC4 PO (09:22)
[2021-08-16] MEDS ORDERED: MIRALAX119 GM PO (09:22)
[2021-08-16 11:30] VITALS: BP 119/65
[2021-08-16 12:32] VITALS: BP 119/65
== END 2021-08-16 17:23 | disposition home health service (06) | DRG 371 ==
LOC: M.ERS 11:25 → M.TBA-ER 13:03 → M.2W 13:03
PROVIDERS: Emergency Medicine Emergency Medical Services; ADMIT Internal Medicine; ATTEND Internal Medicine
DX: A04.9 Bacterial intestinal infection, unspecified (principal); G93.41 Metabolic encephalopathy; R65.10 Systemic inflammatory response syndrome (SIRS) of non-infectious origin without acute organ dysfunction; I25.10 Atherosclerotic heart disease of native coronary artery without angina pectoris; J45.909 Unspecified asthma, uncomplicated; J44.9 Chronic obstructive pulmonary disease, unspecified; E11.9 Type 2 diabetes mellitus without complications; E78.5 Hyperlipidemia, unspecified; I50.9 Heart failure, unspecified; F03.90 Unspecified dementia, unspecified severity, without behavioral disturbance, psychotic disturbance, mood disturbance, and anxiety; K59.00 Constipation, unspecified; I48.0 Paroxysmal atrial fibrillation; D72.829 Elevated white blood cell count, unspecified; I49.5 Sick sinus syndrome; Z20.822 Contact with and (suspected) exposure to COVID-19; I11.0 Hypertensive heart disease with heart failure; Z90.710 Acquired absence of both cervix and uterus; Z95.0 Presence of cardiac pacemaker; Z88.8 Allergy status to other drugs, medicaments and biological substances; I25.2 Old myocardial infarction; R07.89 Other chest pain